=== PATIENT | male | born 1965 | race Caucasian/White ===

== ENCOUNTER → 2017-06-28 07:30 | Outpatient (CLI) | payer SELFPAY ==
[2017-06-28 09:43] LABS: Cholesterol 243 mg/dL (200); Glucose 95 mg/dL (74-106); High Density Lipoprotein 39 mg/dL; Triglycerides 157 mg/dL; Very Low Density Lipoprotein 31 mg/dL (5-40)
== END ==
PROVIDERS: Family Provider Family Medicine; PCP Family Medicine; Visit Provider Family Medicine
DX: Z02.89 Encounter for other administrative examinations (principal)
CPT/HCPCS: 36415; 80061; 82947

== ENCOUNTER → 2017-08-03 06:14 | Outpatient (CLI) | payer SELFPAY ==
[2017-08-03 08:16] LABS: Cholesterol 221 mg/dL (200); Glucose 80 mg/dL (74-106); High Density Lipoprotein 34 mg/dL; Triglycerides 135 mg/dL; Very Low Density Lipoprotein 27 mg/dL (5-40)
== END ==
PROVIDERS: Family Provider Family Medicine; PCP Family Medicine; Visit Provider Family Medicine
DX: Z02.89 Encounter for other administrative examinations (principal)
CPT/HCPCS: 36415; 80061; 82947

== ENCOUNTER 2017-12-15 13:20 | Emergency (ER) | payer BC, SELFPAY ==
[2017-12-15 13:21] VITALS: BP 143/90; PULSE 79; RESP 16; TEMP 36.6; O2SAT 99; BMI 35.2
--- NOTE | 2017-12-15 13:31 | ED.VISSUMM ---
- ER Visit Summary Date of Service: 12/15/17 Chief Complaint: Back pain History of Present Illness: The patient is a 52 M who presents with back pain. He states yesterday he felt a tightening up and while he was at breakfast he moved a certain way and it started to make the pain worse. The pain is in the upper lumbar and lower thoracic area in the left side. It radiates to the left buttock. Movement makes it worse. Remaining still makes it better. No numbness or tingling. It does not radiate down the leg. No bowel or bladder incontinence. He took Flexeril at home and that made his symptoms better. He states he has a history of this back pain and when he had it last in [place] he had a shot of Toradol and this made it feel much better. Patient denies urinary symptoms Physical Examination: Vital signs reviewed. HEENT exam unremarkable. Heart is regular rate and rhythm without murmurs. Lungs are clear to auscultation. Abdomen is soft and nontender. Back exam reveals no tenderness. Deviated tenderness. Extremities reveal no edema. Skin exam normal. Neurologic exam normal. Test Results: None performed Emergency Department Course and Treatment: Patient will be given a shot of Toradol here. I will send him home with naproxen. He will ice and continue his Flexeril with it. He will follow-up with his PCP Treatment Plan: [] Disposition: Discharge Impression: Back pain This note was generated with [employer] dictation software. It may contain incorrect words, spelling, and punctuation that were not noted in review of the chart prior to signing ED Disposition - Plan for ED Patient: Chief Complaint: Back Referrals: Lonnie Fong MD [Primary Care Provider] -
--- NOTE | 2017-12-15 13:32 | ED.DEP ---
ED Disposition - Plan for ED Patient: Disposition: Home or Assisted Living Chief Complaint: Back Instructions: ED Neck Back Pain General Prescriptions: Naproxen [Naprosyn] 500 mg PO BID PRN #20 tab Referrals: Lonnie Fong MD [Primary Care Provider] -
[2017-12-15] MEDS: Ketorolac 60 MG/2 ML Vial IM (13:38)
== END 2017-12-15 13:53 | disposition home or self-care (01) ==
PROVIDERS: Emergency Provider Emergency Medicine; Family Provider Family Medicine; PCP Family Medicine
DX: M54.9 Dorsalgia, unspecified (principal)
CPT/HCPCS: 96372; 99282

== ENCOUNTER 2018-01-22 08:30 | Outpatient (RCR) | payer BC, SELFPAY ==
--- NOTE | 2017-12-19 12:31 | HP.PTEVAL ---
Patient's Visit Information SATINDER ENRIQUEZ is a 52 year old M referred to Physical Therapy by Robbin Fong with a diagnosis of LUMBAGO WITH SCIATICA LEFT SIDE. Date of Evaluation: 12/19/17 Physical Therapist: Esdras Combs, PT, - Visit Plan Frequency: 2x /Week Duration: 4 Weeks Plan: start with hi ex's with progression of forces ,Manual therapy with moblization L1-5 AP /roational grade 3-4 to improve moblity ,intiate DLS ,LE flexablity and modalies as needed - Subjective Subjective: This 52 y/o male presents to physical therapy with lumago with sciatica left leg. This patient has h/o lumbar pain with radicular symptoms 12 years. Most recently ,did alot of yard work developed left lumbar pain next day ,unable to bend or move. Patient had to go to ER from did injection. Intially ,seen DR in [place] recommended PT. Location left side with intermiitant leg pain. Symptoms worse with bending,lifting,sitting at work ,yard work. Symptoms better with walking. Denies parathesia/tingling. Coughing/sneezing increase symtoms. Bowel/bladder good. Patient had prior PT. Patie able sleep okay. SOCAIL: . 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 GAIT: normal gunner reciprocal. NEURO: denies parathesia/tingling ,reflexes L3-4,L4-5,L5-S1. SYMMTRIES : align. MMT: quads/hams 4/5,4/5 hip flexion 4/5 ,ankle 5/5. LUMBAR ROM: flexion mod min/mod loss with poor reverse curve,extension min loss.side glides min loss,. FLEXABLITY: min/mod hams. ASSESSORY MOTION: lumbar L1-L5 mod tight - Special Tests L/S Slump test left side: Positive L/S Slump test right side: Negative L/S Left Straight Leg Raise: Negative L/S Right Straight Leg Raise: Positive Lumbar Standing: Flexion - Mechanical Response: No effect Lumbar Standing: Flexion - Symptoms During Testing: Increases Lumbar Standing: Flexion - Symptoms After Testing: No worse Lumbar Standing: Extension - Mechanical Response: No effect Lumbar Standing: Extension - Symptoms During Testing: Increases Lumbar Standing: Extension - Symptoms After Testing: No worse Lumbar Standing: Right Side Glides - Mechanical Response: No effect Lumbar Standing: Right Side [place] - Symptoms During Testing: No effect Lumbar Standing: Right Side [place] - Symptoms After Testing: No effect Lumbar Standing: Left Side [place] - Mechanical Response: No effect Lumbar Standing: Left Side [place] - Symptoms During Testing: Increases Lumbar Standing: Left Side [place] - Symptoms After Testing: Worse Lumbar Lying: Flexion - Mechanical Response: No effect Lumbar Lying: Flexion - Symptoms During Testing: Increases Lumbar Lying: Flexion - Symptoms After Testing: No worse Lumbar Lying: Extension - Mechanical Response: No effect Lumbar Lying: Extension - Symptoms During Testing: Decreases Lumbar Lying: Extension - Symptoms After Testing: Better - Goals Goal 1:: Independant with HEP Goal Time Frame: 4-6 Weeks Goal 2:: Independant with posture and bodymechanics Goal Time Frame: 4-6 Weeks Goal 3:: Decrease lumbar pain and radicular symptoms 75% or greater to improve function Goal Time Frame: 4-6 Weeks Goal 4:: Patient to improve lumbar ROM for function of recovery. Goal Time Frame: 4-6 Weeks Goal 5:: Patient to d/c to prophalaxis Goal Time Frame: 4-6 Weeks - Rehabilitation Potential Physical Therapy Diagnosis: Patient has intermmitant lumbar radiculopathy with impression of derrangemnt symptoms worse with flexion ,faulty posture,assory moblity tight lumbar,and decrease core strength thus benifit from skilled PT . Rehabilitation Potential: Good - Anticipated Interventions Patient/Client Instruction: Educate patient on: Condition, Plan of Care For the Purpose of:: To decrease pain, To increase ROM, To improve muscle performance and motor function, To increase tolerance to activity/condition/position, To improve ability of physical actions for home/community/work/leisure, To improve health of tissue, To decrease soft tissue restriction, To increase flexibility/ROM, To improve ability to perform tasks related to life management Therapeutic Exercise to Include: Strength training, Body mechanics, Postural training, Flexibilty training, Dynamic Lumbar Stabilization, Hi Exercises For the Purpose of:: To decrease pain, To increase ROM, To improve muscle performance and motor function, To increase tolerance to activity/condition/position, To improve ability of physical actions for home/community/work/leisure, To improve health of tissue, To decrease soft tissue restriction, To increase flexibility/ROM, To improve ability to perform tasks related to life management Manual Therapy Techniques to Include: Mobilization Comment: L1-L5 3-4 For the Purpose of:: To decrease pain, To increase ROM, To improve health of tissue, To decrease soft tissue restriction TENS: Yes IF ES: Yes Cryotherapy (ice pack, ice massage): Yes Thermo therapy (hot pack): Yes Ultrasound (thermal/non thermal): Yes For the Purpose of:: To decrease pain, To improve nutrient delivery to tissue, To increase oxygenation perfusion, To improve health of tissue, To decrease soft tissue restriction Thank you for the opportunity to evaluate your patient. For Medicare and Medicare HMO plans, please review the plan of care and approve it. It will need to be FAXED BACK to us at [phone] for Medicare purposes. Please let me know if there are questions or concerns regarding this plan of care. Physician Signature: Date:
--- NOTE | 2018-04-15 15:08 | HP.PTDCNRP_ITS ---
HP - Discharge Summary (1) - Patient Information SATINDER ENRIQUEZ was seen in my office for initial evaluation on 12/19/17. The following Plan of Care was established for this patient: Initial Frequency: 2x /Week Initial Duration: 4 Weeks - Anticipated Interventions Patient/Client Instruction: Educate patient on: Condition, Plan of Care For the Purpose of:: To decrease pain, To increase ROM, To improve muscle perfo rmance and motor function, To increase tolerance to activity/condition/position, To improve ability of physical actions for home/community/work/leisure, To improve health of tissue, To decrease soft tissue restriction, To increase flexibility/ROM, To improve ability to perform tasks related to life management Therapeutic Exercise to Include: Strength training, Body mechanics, Postural training, Flexibilty training, Dynamic Lumbar Stabilization, Denise Exercises For the Purpose of:: To decrease pain, To increase ROM, To improve muscle performance and motor function, To increase tolerance to activity/condition/position, To improve ability of physical actions for home/community/work/leisure, To improve health of tissue, To decrease soft tiss ue restriction, To increase flexibility/ROM, To improve ability to perform tasks related to life management Manual Therapy Techniques to Include: Mobilization Comment: L1-L5 3-4 For the Purpose of:: To decrease pain, To increase ROM, To improve health of tissue, To decrease soft tissue restriction TENS: Yes IF ES: Yes Cryotherapy (ice pack, ice massage): Yes Thermo therapy (hot pack): Yes Ultrasound (thermal/non thermal): Yes For the Purpose of:: To decrease pain, To improve nutrient delivery to tissue, To increase oxygenation perfusion, To improve health of tissue, To decrease soft tissue restriction This patient was last seen in our office 01/22/18. Pertinent comments regarding their Physical therapy will appear below: Patient seen for PT for low back pain focusing on DLS,POSTURAL EX'S ,MKENZIE EX'S. Patient progressing with decreasing lumbar pain for function of recovery,thus is d/c At this point I will be discontinuing this patient from physical therapy. I would be happy to see this patient again in the future if found appropriate by the physician. Thank you! Esdras Combs, PT,
== END 2018-01-22 19:00 | disposition home or self-care (01) ==
LOC: PT 08:30
PROVIDERS: Family Provider Family Medicine; PCP Family Medicine; Visit Provider Family Medicine
DX: M54.42 Lumbago with sciatica, left side (principal)
CPT/HCPCS: 97035; 97110; 97162

== ENCOUNTER → 2018-08-21 15:23 | Outpatient (CLI) | payer BC, SELFPAY ==
--- NOTE | 2018-08-21 15:31 | RAD_ITS ---
STUDY: X-RAY - LUMBAR SPINE REASON FOR EXAM: Male, 53 years old. Back pain. TECHNIQUE: 5 view(s) of the lumbar spine were obtained. COMPARISON: None FINDINGS: Normal lumbar lordosis. There is no substantial scoliosis. There is a normal alignment of the vertebrae. Normal vertebral bodies and endplates. There is diffuse intervertebral disc space narrowing with osteophyte formation. There is diffuse facet sclerosis. The soft tissue structures are unremarkable. RAD/L/S Spine Min 4 Views IMPRESSION: Mild diffuse lumbar spondylosis. Electronically Signed: Se Karimi MD at 17:39 EDT , Service support ,
== END ==
PROVIDERS: Family Provider Family Medicine; PCP Family Medicine; Referring Provider Anesthesiology; Visit Provider Anesthesiology
DX: M54.42 Lumbago with sciatica, left side (principal)
CPT/HCPCS: 72110

== ENCOUNTER → 2018-10-18 16:14 | Outpatient (CLI) | payer BC, SELFPAY ==
--- NOTE | 2018-10-18 16:45 | MRI_ITS ---
HISTORY: Low back pain, left-sided lumbar radiculopathy COMPARISON: Lumbar radiographs 08/21/2018 TECHNIQUE: Multisequence multiplanar MR imaging of the lumbar spine was performed per department protocol without IV gadolinium. # of images incl. paperwork: 121 FINDINGS: Lumbar alignment is within normal limits without significant scoliosis . No acute fracture or subluxation. Lumbar vertebral bodies are normal in height. Mild anterior marginal osteophytes throughout the lumbar spine. Mild discogenic endplate marrow changes at the L4-L5 level more pronounced along the left aspect No focal marrow signal abnormality to suggest a pathologic process. The conus is identified opposite the L1 level and is normal in morphology and signal characteristics. Mild disc space narrowing at L4-L5 and L5-S1 levels with moderate disc desiccation. T12-L1: No disc bulge or disc protrusion. No canal or neural foraminal stenosis. L1-2: No disc bulge or disc protrusion. No canal or neural foraminal stenosis. L2-3: No disc bulge or disc protrusion. No canal or neural foraminal stenosis. L3-4: Mild disc bulge. No superimposed disc protrusion. No canal or foraminal stenosis. Mild bilateral facet joint arthropathy. L4-5: There is a 2-3 mm asymmetric to the left disc protrusion extending into the left lateral aspect which combined with mild facet joint arthropathy results in moderate left foraminal stenosis. Mild flattening of the left aspect of the thecal sac without overall canal stenosis. No right foraminal stenosis. L5-S1: Left lateral 4 mm disc protrusion combined with moderate facet joint arthropathy and ligamentum flavum redundancy results in effacement and posterior displacement of the traversing left S1 nerve root. No canal or foraminal stenosis. Paravertebral soft tissues show no gross signal abnormalities. MRI/Spine Lumbar (Routine) IMPRESSION: 1. Effacement and posterior displacement of the traversing left S1 nerve root at the L5-S1 level. 2. Moderate left foraminal stenosis at L4-L5. 3. No canal stenosis of lumbar spine. 4. Lower lumbar spine degenerative changes as described. at 0335 Reported and signed by: Virgilio Son MD Electronically Signed: Virgilio Son MD at 3:34 EDT Tel , Service support ,
== END ==
PROVIDERS: Family Provider Family Medicine; PCP Family Medicine; Referring Provider Anesthesiology; Visit Provider Anesthesiology
DX: M54.16 Radiculopathy, lumbar region (principal)
CPT/HCPCS: 72148

== ENCOUNTER → 2018-10-25 12:27 | Outpatient (CLI) | payer BC, SELFPAY ==
[2018-10-22 14:58] VITALS: BMI 36.6
--- NOTE | 2018-10-25 12:30 | RAD_ITS ---
HISTORY: Back pain. AP, lateral, swimmer's lateral, bilateral obliques of the thoracic spine. Previous imaging is been of the lumbar spine. Findings: Kyphosis is mild. Mild wedging to several midthoracic vertebral bodies. Multilevel degenerative disc disease. Degenerative disc disease is manifested by loss of disc height, endplate sclerosis, and anterior enthesophytes. Within the lower lumbar spine, some of these enthesophytes are bridging. Facets are adequately aligned. No acute fractures are perceived. Paraspinous stripe is normal. Descending thoracic aortic margin is normal. RAD/Thoracic Spine Min 4 Views IMPRESSION: Multilevel degenerative disc disease with kyphosis. at 2416 Reported and signed by: John Lucio MD Electronically Signed: John Lucio MD at 4:43 EDT Tel , Service support ,
== END ==
PROVIDERS: Family Provider Family Medicine; PCP Family Medicine; Referring Provider Anesthesiology; Visit Provider Anesthesiology
DX: M54.6 Pain in thoracic spine (principal)
CPT/HCPCS: 72074

== ENCOUNTER → 2020-04-13 09:54 | Outpatient (CLI) | payer BC, SELFPAY ==
[2018-10-22 14:58] VITALS: BMI 36.6
[2020-04-13 13:01] LABS: Anion Gap 7 (5-15); BUN 8 mg/dL (7-18); BUN/Creat Ratio 13.2 RATIO (10-20); Calcium,Total 9.4 mg/dL (8.5-10.1); Chloride 105 mmol/L (98-107); EST Glomerular Filtration Rate 148 mL/min (>60); Est Glom Filt Rate - Afr Amer 179 mL/min (>60); Glucose 63 mg/dL (74-106); PSA,Total - Annual Screen 1.88 ng/mL (0.00-4.00); Potassium 3.6 mmol/L (3.5-5.1); Sodium Level 140 mmol/L (136-145)
== END ==
PROVIDERS: PCP Family Medicine; Visit Provider Family Medicine
DX: Z13.1 Encounter for screening for diabetes mellitus (principal); Z12.5 Encounter for screening for malignant neoplasm of prostate
CPT/HCPCS: 36415; 80048; 84153; G0103

== ENCOUNTER 2020-07-30 16:48 | Outpatient (RCR) | payer BC, SELFPAY ==
[2018-10-22 14:58] VITALS: BMI 36.6
[2020-07-30] MEDS: COVID-19 VACC, MRNA(PFIZER)/PF 30 MCG/0.3 ML SYRINGE IM (11:30)
[2020-08-20] MEDS: COVID-19 VACC, MRNA(PFIZER)/PF 30 MCG/0.3 ML SYRINGE IM (11:29)
== END 2020-07-30 23:59 ==
LOC: IMMUN 16:48
PROVIDERS: PCP Family Medicine; Referring Provider Family Medicine; Visit Provider Family Medicine
DX: Z23 Encounter for immunization (principal)
CPT/HCPCS: 0001A; 0002A; 91300

== ENCOUNTER 2021-02-01 17:00 | Outpatient (RCR) | payer BC, SELFPAY ==
[2020-10-04 08:59] VITALS: BMI 33.9
--- NOTE | 2020-12-21 16:58 | HP.PTEVAL ---
Patient's Visit Information SATINDER ENRIQUEZ is a 55 year old M referred to Physical Therapy by Dr. Jagdish Orourke DO with a diagnosis of L Achilles tendoonitis, L lat epicondylitis, L/S radic. Date of Evaluation: 12/21/20 Physical Therapist: Chandan Molina, DPT, OCS, CSCS - Visit Plan Frequency: 2x /Week Duration: 4-6 Weeks Plan: 2x/week for 3-6 weeks for. 1. US nonthermal to L achilles and PROM DF with gastroc graston tool and strettch gastroc adn soleus. 2. graston to L wrist extensor, stretch same. 3. eccentric wrist ext L and gastroc soleus L. 4. Please teach core strength and LB ROM to progress to HEP. - Subjective Daughter moved back in September and got L tennis elbow from doing that and stressed L elbow. Got antiinflammatory which did not work, then got injections and sent for PT. Shots helped 40%. He also has bad back whcih he stretches daily and that is hard to do with his elbow as are PPU. Morgan sback bends instead becasue they hurt. L heel starte dhurting and saw foot doctor and sent for PT. Doing stretches L leg but it hurts. Elbow hurts at 29-/10 if grabs object improperly. Employe din [employer] 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 Sleep is OK. Hobbies include fishing and his kids. Enjoys going to [place] but walking on beach kills him. Has chronic tendonitis in L achilles. Pain is 0-7 and worse with stretching.Hurts if walks too far. Avoids mowing the lawn. No falls and balance feels OK. Used to walk a mile with dogs 4-5x/week. - Objective Walks I with slight antalgia on L with Df. Trasnfers I. Avoids heel strike L. Tender to PROM DF. -8 on L and full inv/ev/df. Not tender to the touch in achilles tendon and only slightly on achilles. Gastroc Max tight, soleus max tight. Able to heel raise without pain L and R. Posture is forward head and kyphotic t/s, very stiff LB with ext limited mod to max and flexion mod limited, neither painful today but stiff. SB mod limtied B. LE AROM WFL except L ankle, reflexes 2/3 patella adn achilles. Sensation wNL to gross lght touch. - slump and SLR. UE AROM WNL, L elbow tender over lat epicondyul et origin only , + tennis elbow test L. Much better since injection according to patient. strength L elbow ext adn flexion 4 withotu pain, wrist flex adn ext 4/5 without pain today B. - Goals Goal 1:: L elbow feel 90% better adn able to pressup to manage LBP Goal Time Frame: 4-6 Weeks Goal 2:: Walk without antalgia in L achilles Goal Time Frame: 4-6 Weeks Goal 3:: Pt feel 90% better overall and I management condition with ex adn stretches LB, core strength, achilles ecc adn stretch adn L elbow ecc and stretch. Goal Time Frame: 4-6 Weeks - Rehabilitation Potential Physical Therapy Diagnosis: L heel pain and elbow pain limiting management of LBP Rehabilitation Potential: Fair - Anticipated Interventions Patient/Client Instruction: Educate patient on: Condition For the Purpose of:: To decrease pain, To improve muscle performance and motor function, To increase tolerance to activity/condition/position, To improve ability of physical actions for home/community/work/leisure Therapeutic Exercise to Include: Strength training, Flexibilty training, Gait and locomotor training, Passive ROM, Active ROM For the Purpose of:: To decrease pain, To increase ROM, To improve muscle performance and motor function, To increase tolerance to activity/condition/position, To improve ability of physical actions for home/community/work/leisure, To improve gait and locomotor functions Manual Therapy Techniques to Include: Mobilization, Soft tissue mobilization For the Purpose of:: To decrease pain, To improve nutrient delivery to tissue, To improve muscle performance and motor function Thermo therapy (hot pack): Yes Ultrasound (thermal/non thermal): Yes For the Purpose of:: To decrease pain, To decrease swelling/inflammation Thank you for the opportunity to evaluate your patient. For Medicare and Medicare HMO plans, please review the plan of care and approve it. It will need to be FAXED BACK to us at [phone] for Medicare purposes. For Medicare only, by signing this I certify the plan of care. Please let me know if there are questions or concerns regarding this plan of care. Physician Signature: Date:
--- NOTE | 2021-02-01 17:21 | HP.PTDCSUM ---
It has been my pleasure to treat SATINDER ENRIQUEZ referred by Dr. Jagdish Orourke DO, with the diagnosis of L Achilles tendoonitis, L lat epicondylitis, L/S radic for a total of 8 visit(s). Discharge Date: 02/01/21 Please see the following information for a summary of their discharge status. Subjective: Heerl is a lot better. Hurts for a second if I pull it up but able to walk without a problem. Elbow was good for a while but yard work can keep it going up and down. Back is getting a little better. Stretching really helps. doing some of the strengthening but not as often as I should. Overall thinks things will be get better with time and exercises that he has. elbow 70% better, back 50% better, achilles 90% better. L achilles Pain Intensity (Out of 10): 2 Objective/Function: LB still very stiff in flexion and rotation, extension improving. No pain with movements today but very stiff. Tender with L wrist extension moderately still but not painful at rest and if careful with acitvity. Achilles ROM and flexibility is good and no pain or antalgia. Goal 1:: L elbow feel 90% better adn able to pressup to manage LBP Goal Progress: 75% Goal 2:: Walk without antalgia in L achilles Goal Progress: Goal Met Goal 3:: Pt feel 90% better overall and I management condition with ex adn stretches LB, core strength, achilles ecc adn stretch adn L elbow ecc and stretch. Goal Progress: Goal Met Plan: d/c to HEP. Discharge Comments: Pt to contact doctor if symptoms worsen again If there are questions or concerns regarding this patient's physical therapy, please feel free to call me at [phone]. Thank you for the referral of this patient. Sincerely, Chandan Molina, DPT, OCS, CSCS Balance/Gait/Functional tests - Balance/Special Test Scores Lower Extremity Functional Score: 63
== END 2021-02-01 19:00 | disposition home or self-care (01) ==
LOC: PT 17:00
PROVIDERS: PCP Family Medicine; Referring Provider Orthopaedic Surgery; Visit Provider Orthopaedic Surgery
DX: M77.12 Lateral epicondylitis, left elbow (principal); M48.08 Spinal stenosis, sacral and sacrococcygeal region; M54.16 Radiculopathy, lumbar region; M76.62 Achilles tendinitis, left leg
CPT/HCPCS: 97035; 97110; 97140; 97162; 97164

== ENCOUNTER → 2021-04-15 15:39 | Outpatient (CLI) | payer BC, SELFPAY ==
--- NOTE | 2021-04-15 15:39 | MRI_ITS ---
STUDY: MRI LUMBAR SPINE WITHOUT CONTRAST REASON FOR EXAM: Male, 56 years old. pain L leg worse than R TECHNIQUE: Standardized fat and water weighted pulse sequences were obtained in the sagittal and axial planes. COMPARISON: X-ray 04/01/2021. FINDINGS: No demonstrated fracture. Vertebral bodies are normal in height. T12-L1: Normal disc height and morphology. Normal bilateral facet joints. Normal central canal. Normal bilateral lateral recesses. Normal intervertebral neural foramina. L1-2: L1 Schmorl''s node, otherwise normal disc morphology. Normal bilateral facet joints. Normal central canal. Normal bilateral lateral recesses. Normal intervertebral neural foramina. L2-3: Schmorl''s nodes. Normal bilateral facet joints. Normal central canal. Normal bilateral lateral recesses. Normal intervertebral neural foramina. L3-4: Normal disc height and morphology. Small, noncompressive left paracentral protrusion is predominantly spondylotic. Normal bilateral facet joints. Normal central canal. Normal bilateral lateral recesses. Normal intervertebral neural foramina. L4-5: Disc dehydration and mild disc space narrowing. Left paracentral spondylotic bar causes effacement of the left lateral recess and extends into the left neural foramen. Normal bilateral facet joints. Normal central canal. Severe left foraminal stenosis due to spurring. L5-S1: Disc dehydration. Left paracentral mixed spondylotic and disc protrusion effaces the left lateral recess and displaces the traversing left S1 nerve root. Normal bilateral facet joints. Normal central canal. Mild left foraminal encroachment due to spurring. Normal visualized sacral ala. Normal visualized paraspinous soft tissue structures. MRI/Spine Lumbar (Routine) IMPRESSION: 1. L5-S1 mixed spondylotic and disc protrusion displaces the left S1 nerve root. 2. Effacement of the left lateral recess at L4-5 and L5-S1 due to spondylosis. 3. Severe foraminal stenosis at L4-5. Electronically Signed: Analilia Rich MD at 22:07 EST Tel , Service support ,
== END ==
PROVIDERS: PCP Family Medicine; Referring Provider Orthopaedic Surgery; Visit Provider Orthopaedic Surgery
DX: M51.26 Other intervertebral disc displacement, lumbar region (principal)
CPT/HCPCS: 72148

== ENCOUNTER → 2021-04-28 08:39 | Outpatient (CLI) | payer BC, SELFPAY ==
[2021-04-28 10:12] LABS: Anion Gap 9 (5-15); BUN 8 mg/dL (7-18); BUN/Creat Ratio 12.3 RATIO (10-20); Chloride 103 mmol/L (98-107); Cholesterol 193 mg/dL (200); Creatinine, Serum 0.65 mg/dL (0.70-1.30); EST Glomerular Filtration Rate 135 mL/min (>60); Est Glom Filt Rate - Afr Amer 163 mL/min (>60); Glucose 87 mg/dL (74-106); High Density Lipoprotein 40 mg/dL; PSA,Total - Annual Screen 1.69 ng/mL (0.00-4.00); Sodium Level 139 mmol/L (136-145); Triglycerides 149 mg/dL; Very Low Density Lipoprotein 30 mg/dL (5-40)
== END ==
PROVIDERS: PCP Family Medicine; Referring Provider Family Medicine; Visit Provider Family Medicine
DX: E78.5 Hyperlipidemia, unspecified (principal)
CPT/HCPCS: 36415; 80048; 80061; 84153; G0103

== ENCOUNTER 2022-05-04 09:02 | Outpatient (CLI) | payer BC, SELFPAY ==
[2022-05-04 10:48] LABS: ALB/GLOB Ratio 1.1 RATIO (0.9-2.4); AST(SGOT) 22 U/L (15-37); Alanine Aminotransfer ALT/SGPT 30 U/L (16-61); Albumin, Serum 3.6 g/dL (3.2-5.0); Alkaline Phosphatase 72 U/L (45-117); Anion Gap 3 (5-15); BUN 7 mg/dL (7-18); BUN/Creat Ratio 10.4 RATIO (10-20); Calcium,Total 8.8 mg/dL (8.5-10.1); Chloride 104 mmol/L (98-107); Cholesterol 192 mg/dL (200); Creatinine, Serum 0.68 mg/dL (0.70-1.30); EST Glomerular Filtration Rate 129 mL/min (>60); Est Glom Filt Rate - Afr Amer 156 mL/min (>60); Globulin 3.3 g/dL (2.2-4.2); Glucose 93 mg/dL (74-106); High Density Lipoprotein 38 mg/dL; PSA,Total - Annual Screen 2.18 ng/mL (0.00-4.00); Protein, Total 6.9 g/dL (6.4-8.2); Sodium Level 138 mmol/L (136-145); Triglycerides 134 mg/dL; Very Low Density Lipoprotein 27 mg/dL (5-40)
== END 2022-05-04 23:59 | disposition home or self-care (01) ==
LOC: MFPLAB 09:03
PROVIDERS: PCP Family Medicine; Referring Provider Family Medicine; Visit Provider Family Medicine
DX: E78.5 Hyperlipidemia, unspecified (principal); Z12.5 Encounter for screening for malignant neoplasm of prostate; Z13.1 Encounter for screening for diabetes mellitus
CPT/HCPCS: 36415; 80053; 80061; 84153; G0103

== ENCOUNTER 2022-09-19 07:30 | Day surgery (SDC) | payer BC, SELFPAY ==
[2022-09-19] MEDS: Lactated Ringers 1,000 ML 15 ML IV (07:58)
[2022-09-19 07:59] VITALS: BP 115/70; PULSE 74; RESP 16; TEMP 36.2; O2SAT 100; BMI 33.5
--- NOTE | 2022-09-19 08:16 | H&P.OPEN ---
HPI - General HPI Narrative SATINDER ENRIQUEZ, is a 57 M who presents for surveillance colonoscopy. His last colonoscopy was about 6 years ago and they did find polyps. He denies any abdominal pain or blood in the stool or family history of colon cancer. [facility] Medical History (Updated 09/19/22 @ 08:[address] Kj Castro MD) Cardiology follow-up encounter Dietary restriction High cholesterol History of Clostridium difficile infection History of stress test Hyperlipidemia Non-smoker Obesity Paroxysmal supraventricular tachycardia SVT (supraventricular tachycardia) Wears glasses Wide-complex tachycardia Home Medications multivitamin 1 tab PO DAILY 04/01/21 [History Last Taken Unknown] ascorbate calcium (vitamin C) 500 mg tablet 500 mg PO DAILY 08/14/22 [History Last Taken Unknown] Allergy/AdvReac Type Severity Reaction Status Date / Time kiwi Allergy Food Verified 09/19/22 07:46 Allergy melon Allergy NEEDS Verified 09/19/22 07:46 FOLLOW-UP penicillin G benzathine Allergy Rash Verified 09/19/22 07:46 Penicillins Allergy Rash Verified 09/19/22 07:46 Family History (Updated 08/14/22 @ 13:06 by Marium Farrell) Mother CAD (coronary artery disease) S/P AVR (aortic valve replacement) Hx of CABG Breast cancer Brother Colon polyps Father Prostate cancer ALS (amyotrophic lateral sclerosis) Surgical History (Updated 09/14/22 @ 12:28 by Huma Cornejo) H/O arthroscopic knee surgery History of cardiac catheterization History of cardioversion (04/17/16) History of colonoscopy History of left heart catheterization (04/18/16) History of radiofrequency ablation procedure for cardiac arrhythmia (04/19/16) History of tonsillectomy Status post repair of hydrocele Social History Smoking Status: Never smoker alcohol intake: current substance use type: does not use caffeine: No what type of physical activity do you participate in: walking frequency: 3-4 times per week duration: 30-45 minutes/day seatbelt use: always do you feel safe at home: Yes Past Medical/Surgical History Planned Operation Planned Operative Procedure/s: COLONOSCOPY Previous Hospitalizations/Surgeries HX Hospitalizations: No Any Problems With Anesthesia: No You/Your Family Experience Fever (Hyperthermia) With Anes: No Cholinesterase deficiency: No Cardiovascular Hx Chest Pain within Last 2 months: No Hx of Irregular Heartbeat and/or Afib: Yes (SVT) Hx Heart Attack: No Hx Hypertension: No Hx Cardiac Surgery/Stents/Etc.: No Hx Pain in Legs when Walking/Leg Cramps: No Respiratory Hx Chronic Obstructive Pulmonary Disease (COPD): No Hx Emphysema: No Hx Sleep Apnea: No Hx Respiratory Tract Infection/Cold (presently): No Do You Snore Loudly (louder than talking or can be heard): No Do You Often Feel Tired/ Fatigued/ Sleepy Dring Daytime?: No Has Anyone Observed You Stop Breathing During Sleep?: No Result (for STOP score): Negative Hx Smoking: No Smoking Status: Never smoker Gastrointestinal Hx Gastrointestinal Bleed: No Hx Ulcer: No Hx Unplanned Weight Loss of 20#: No Neurological Hx Seizures: No Hx Multiple Sclerosis: No Hx Parkinson's Disease: No Does patient have nerve stimulator: No Blood Disorder Hx High Cholesterol: Yes Hx Hepatitis: No Hx Cirrhosis: No Hx Anemia: No Hx Blood Disorders: No Genitourinary Hx Renal Disease: No Hx Dialysis: No Musculoskeletal Hx Arthritis: Yes (BACK AND KNEES) Hx Rheumatoid Arthritis: No Endocrine Hx Diabetes: No Thyroid Disease: No Psycho/Social Hx Substance Use: No Hx Alcohol Use: Yes (BEER ON WEEKENDS- 6-8/DAY) Hx Anxiety: No Hx Depression: No Hx Dementia: No Miscellaneous Hx Cancer: No Recent Exposure to Contagious Disease: No Allergies kiwi Allergy (Verified 09/19/22 07:46) Food Allergy melon Allergy (Verified 09/19/22 07:46) NEEDS FOLLOW-UP honey dew melon penicillin G benzathine Allergy (Verified 09/19/22 07:46) Rash Penicillins Allergy (Verified 09/19/22 07:46) Rash Discharge Is Pt Admitted From a [facility], or a Long-Term: No Who Could Help: After D/C, Where Do you Plan to Go: Return Home Vital Signs Vital Signs Vital Signs: 09/19/22 07:59 09/19/22 07:59 Temperature 97.2 F L Temperature Source Temporal Pulse Rate 74 Respiratory Rate 16 Respiratory Pattern Normal Blood Pressure 115/70 Blood Pressure Mean 85 Blood Pressure Source Monitor Blood Pressure Position Semi-Fowlers Blood Pressure Location Left Arm Pulse Ox 100 Oxygen Delivery Method Room Air Weight Weight: 246 lb 14.684 oz Body Mass Index (BMI) 33.5 Physical Exam Const alert and oriented x3 HEENT normocephalic Eyes PERRL Resp normal respiratory effort and normal air movement Cardio regular rate and regular rhythm GI soft to palpation, non-tender and non-distended Extremity normal to inspection Assessment & Plan Assessment/Plan (1) History of colon polyps: PLAN: I explained endoscopy in detail to the patient. I explained the risks including but not limited to stroke or heart attack with anesthesia, perforation of the GI tract, bleeding, infection. I explained that any of these could necessitate further emergency surgery. The patient understands and all questions were answered sufficiently. The patient wishes to proceed with procedure. Kj Castro MD Pager: [facility] [address] [place] [address] [address] [place] [address] Office: Surgery Risks - Colonoscopy Risks Include but are not Limited To: Risks include but are not limited to: Bleeding, perforation requiring further surgery, inability to complete colonoscopy requiring barium enema.
[2022-09-19 08:45] VITALS: BP 107/58; BP 115/70; PULSE 78; RESP 16; TEMP 36.3; O2SAT 95
--- NOTE | 2022-09-19 08:46 | OP.COLON_ITS ---
Patient Name: Garrett Maddox Procedure Date: 09/19/2022 8:22 AM Date of : 1965 Age: 57 Procedure: Colonoscopy Indications: High risk colon cancer surveillance: Personal history of colonic polyps Providers: Kj Castro MD Medicines: Monitored Anesthesia Care Patient Profile: This is a 57 year old male. Refer to note in patient chart for documentation of history and physical. Last Colonoscopy: 5 years ago. Complications: No immediate complications. Procedure: Pre-Anesthesia Assessment: - Prior to the procedure, a History and Physical was performed, and patient medications and allergies were reviewed. The patient's tolerance of previous anesthesia was also reviewed. The risks and benefits of the procedure and the sedation options and risks were discussed with the patient. All questions were answered, and informed consent was obtained. Prior Anticoagulants: The patient has taken no previous anticoagulant or antiplatelet agents. ASA Grade Assessment: II - A patient with mild systemic disease. After reviewing the risks and benefits, the patient was deemed in satisfactory condition to undergo the procedure. After I obtained informed consent, the scope was passed under direct vision. Throughout the procedure, the patient's blood pressure, pulse, and oxygen saturations were monitored continuously. The pediatric colonoscope was introduced through the anus and advanced to the cecum, identified by appendiceal orifice and ileocecal valve. The colonoscopy was performed without difficulty. The patient tolerated the procedure well. The quality of the bowel preparation was good. Scope In: 8:31:51 AM Scope Withdrawal Time 0 hours 6 minutes 31 seconds Scope Out: 8:42:45 AM Total Procedure Duration Time 0 hours 10 minutes 54 seconds Findings: The entire examined colon appeared normal on direct and retroflexion views. Impression: - The entire examined colon is normal on direct and retroflexion views. - No specimens collected. Recommendation: - Discharge patient to home. - Resume previous diet. - Continue present medications. - Repeat colonoscopy in 10 years for screening purposes. Procedure Code(s): --- Professional --- 82568, Colonoscopy, flexible; diagnostic, including collection of specimen(s) by brushing or washing, when performed (separate procedure) Diagnosis Code(s): --- Professional --- Z86.010, Personal history of colonic polyps CPT copyright 2017 [employer]. All rights reserved. The codes documented in this report are preliminary and upon television repairman review may be revised to meet current compliance requirements. Kj Castro MD 09/19/2022 8:46:12 AM This report has been signed electronically. Number of Addenda: 0 Note Initiated On: 09/19/2022 8:22 AM
--- NOTE | 2022-09-19 08:47 | OP.CCLET_ITS ---
09/19/2022 Lonnie Fong [address] [place] [address] Re : Colonoscopy procedure for [facility] Dear Dr. Fong This procedure was performed on Monday, September 19, 2022. My impressions and recommendations are as follows: Impressions : - The entire examined colon is normal on direct and retroflexion views. - No specimens collected. Recommendations : - Discharge patient to home. - Resume previous diet. - Continue present medications. - Repeat colonoscopy in 10 years for screening purposes. My findings are described in the full procedure note, which is enclosed. If I can be of further assistance, please feel free to contact me at Doctor phone number(s): , Work: . Sincerely, Kj Castro MD 09/19/2022 8:46:12 AM This report has been signed electronically.
[2022-09-19 08:50] VITALS: BP 108/76; BP 115/70; PULSE 75; RESP 16; O2SAT 96
[2022-09-19 08:55] VITALS: BP 108/78; BP 115/70; PULSE 71; RESP 16; O2SAT 98
[2022-09-19 08:59] VITALS: BP 109/79; BP 115/70; PULSE 67; RESP 16; TEMP 36.6; O2SAT 98
[2022-09-19 09:22] VITALS: BP 115/70
== END 2022-09-19 09:38 | disposition home or self-care (01) ==
LOC: EN 07:30 → AC 07:33
PROVIDERS: PCP Family Medicine; Referring Provider Surgery; Visit Provider Surgery
PROC: 0DJD8ZZ Inspection of Lower Intestinal Tract, Via Natural or Artificial Opening Endoscopic (ICD-10-PCS; CPT 45378; principal; 2022-09-19 08:25)
DX: Z12.11 Encounter for screening for malignant neoplasm of colon (principal); Z86.010 Personal history of colon polyps; E78.00 Pure hypercholesterolemia, unspecified
CPT/HCPCS: 45378; J7120; J2405

== ENCOUNTER → 2023-05-03 | Outpatient (CLI) | payer BC, SELFPAY ==
[2023-05-03 10:44] LABS: Anion Gap 5 (5-15); BUN 8 mg/dL (7-18); BUN/Creat Ratio 12.1 RATIO (10-20); Calcium,Total 9.4 mg/dL (8.5-10.1); Chloride 104 mmol/L (98-107); Cholesterol 193 mg/dL (200); Creatinine, Serum 0.66 mg/dL (0.70-1.30); EST Glomerular Filtration Rate 132 mL/min (>60); Est Glom Filt Rate - Afr Amer 160 mL/min (>60); Glucose 87 mg/dL (74-106); High Density Lipoprotein 39 mg/dL; PSA,Total - Annual Screen 2.32 ng/mL (0.00-4.00); Sodium Level 139 mmol/L (136-145); Triglycerides 169 mg/dL; Very Low Density Lipoprotein 34 mg/dL (5-40)
== END | disposition home or self-care (01) ==
LOC: MFPLAB 08:21
PROVIDERS: PCP Family Medicine; Visit Provider Family Medicine
DX: Z13.1 Encounter for screening for diabetes mellitus (principal); Z12.5 Encounter for screening for malignant neoplasm of prostate; E78.5 Hyperlipidemia, unspecified
CPT/HCPCS: 36415; 80048; 80061; 84153; G0103

== ENCOUNTER → 2024-04-29 | Outpatient (CLI) | payer BC, SELFPAY ==
[2024-04-29 12:30] LABS: Absolute Lymphocyte Count 0.94 X10^3/uL (0.83-4.51); Absolute Neutrophil Count 3.9 X10^3/uL (2.0-7.7); Basophil# 0.04 X10^3/uL; Basophil% 0.7 % (0-1); Eosinophil# 0.16 X10^3/uL; Eosinophils% 2.9 % (0-5); Hemoglobin 15.6 g/dL (13.0-16.5); Lymphocyte # 0.94 X10^3/ul (0.83-4.51); Mean Corp Hgb Conc 33.9 g/dL (32-36); Mean Corpuscular Hgb 30.2 pg (27.0-32.0); Mean Platelet Vol. 10.6 fl (6.2-12.0); NRBC Flagged by Analyzer 0 % (0-5); Neutrophil # 3.87 X10^3/uL (2.7-7.7); Platelet Count 209 K/mm3 (150-450); RBC Distribution Width CV 13.1 % (11.6-14.6); RBC Distribution Width SD 42.8 fl (35.1-43.9); Red Blood Count 5.17 M/mm3 (4.6-6.2); White Blood Count 5.5 K/mm3 (4.4-11.0)
[2024-04-29 12:46] LABS: Anion Gap 4 (5-15); BUN 6 mg/dL (7-18); BUN/Creat Ratio 9.8 RATIO (10-20); Calcium,Total 9.3 mg/dL (8.5-10.1); Chloride 105 mmol/L (98-107); Creatinine, Serum 0.61 mg/dL (0.70-1.30); EST Glomerular Filtration Rate 143 mL/min (>60); Est Glom Filt Rate - Afr Amer 174 mL/min (>60); Glucose 86 mg/dL (74-106); Potassium 4.1 mmol/L (3.5-5.1); Rheumatoid Factor < 10.0 IU/mL (<15); Sodium Level 138 mmol/L (136-145)
[2024-04-30 12:08] LABS: ANTINUCLEAR ANTIBODIES DIRECT Negative (Negative)
[2024-04-30 14:08] LABS: PROEL- A/G Ratio 1.2 (0.7-1.7); PROEL- Albumin 3.8 g/dL (2.9-4.4); PROEL- Alpha-1 Globulin 0.3 g/dL (0.0-0.4); PROEL- Alpha-2 Globulin 0.8 g/dL (0.4-1.0); PROEL- Beta Globulin 1.1 g/dL (0.7-1.3); PROEL- Globulin, Total 3.1 g/dL (2.2-3.9); PROEL- TOTAL PROTEIN 6.9 g/dL (6.0-8.5); PROEL-M-Spike Not Observed g/dL (Not Observed)
== END | disposition home or self-care (01) ==
LOC: MTLAB 09:09
PROVIDERS: PCP Family Medicine; Referring Provider Family Medicine; Visit Provider Family Medicine
DX: M19.011 Primary osteoarthritis, right shoulder (principal); Z13.1 Encounter for screening for diabetes mellitus; Z12.5 Encounter for screening for malignant neoplasm of prostate
CPT/HCPCS: 36415; 80048; 84165; 85025; 86038; 86431

== ENCOUNTER 2024-05-01 17:30 | Outpatient (RCR) | payer BC, SELFPAY ==
--- NOTE | 2024-03-07 15:46 | HP.PTEVAL ---
Patient's Visit Information Visit Information Visit Information: SATINDER ENRIQUEZ is a 59 year old M referred to Physical Therapy by Dr. Jagdish Orourke DO with a diagnosis of RC tendonitis R.. Date of Evaluation: 03/07/24 Physical Therapist: Chandan Molina, DPT, OCS, CSCS Visit Plan Frequency: 2x /Week Duration: 4-6 Weeks Plan: 2x/week for 4-6 weeks... IE:Avoid aggravating activities, ice 20 minutes if sore. Upper arms at side for all repetitive activities. Posture is hugely important for healing Sleep left side with pillows under right arm or back, avoid direct right sidelying and tummy lying. Avoid repetitive overhead activities. treat with : Rc and scap strength and postural strength progressing to HEP as tolerated. Can use US nonthermal and TENS if painful at rest but should not need often.ice ROM shoulder and manual therapy grade 1-2 mobs Subjective Subjective: has bulging discs in back and needs to do PPU. Doing those hurt his R shoulder in January. has 30 years of shoulder problems but not treatment. Saw doctor Markus and irritated RC and gave injection steroid a couple weeks ago which helped. Used to hurt to play frisbee golf or throw a ball. Dressing was difficult at first. No problem anymore. Activities avoiding pressups for back. WB through it is problematic. Anti inflammatories. Activities: normal outside of PPU, avoids fly fishing No current exercises sleep is OK Pain R shoulder: Pain Intensity (Out of 10): 1 Pain Intensity Range: 0, 3 and 7 Objective Objective: FW head and prtracged scapular posture gently. Tender to palpation over r supraspinatus insertion. + HK, + neer, - sulcus, - ext rotation lag test.- apprehension., - Yergasons test. AROM R arm is good, slightly tight top of elevation B, mild pain arc. er adn IR are full but painful at end of both on R. elbow and wrist aROM WFL B. sensation WNL B UE to gross light touch. reflexes 1/3 bi and tri B. strength scap Good without pain, shoulder flexion adn abd 4/5 B with pain on R slightly. empty can +. bi and tri and wrist ext adn thumb ext strength 4+/5 without pain. R shoulder IR/4+ L 4+, er 4- R and pain and 4 L and no pain. Balance/Special Test Scores Quick DASH Score: 31.8175 Goals Goal 1:: Pain 90% improved and 1/10 at worst for a week Goal Time Frame: 4-6 Weeks Goal 2:: quickdash score 14 or better Goal Time Frame: 4-6 Weeks Goal 3:: I apporopriate HEP for RC scap strength to limit future problems Goal Time Frame: 4-6 Weeks Goal 4:: PPU x 20 without increasing pain Goal Time Frame: 4-6 Weeks Rehabilitation Potential Physical Therapy Diagnosis: weakness and pain R shouldeer limiting funciton Rehabilitation Potential: Fair Anticipated Interventions Patient/Client Instruction: Educate patient on: Condition and Plan of Care For the Purpose of:: To decrease pain, To increase ROM, To improve nutrient delivery to tissue and To improve muscle performance and motor function Therapeutic Exercise to Include: Strength training, Postural training, Passive ROM, Active ROM and Scapular Strength/Stabilization For the Purpose of:: To decrease pain, To increase ROM, To improve nutrient delivery to tissue, To improve muscle performance and motor function and To increase tolerance to activity/condition/position Manual Therapy Techniques to Include: Mobilization, Passive ROM and Soft tissue mobilization For the Purpose of:: To decrease pain, To decrease swelling/inflammation, To improve nutrient delivery to tissue, To improve muscle performance and motor function and To increase tolerance to activity/condition/position TENS: Yes Cryotherapy (ice pack, ice massage): Yes Ultrasound (thermal/non thermal): Yes (nonthermal) For the Purpose of:: To decrease pain, To decrease swelling/inflammation and To improve nutrient delivery to tissue Text: Thank you for the opportunity to evaluate your patient. For Medicare and Medicare HMO plans, please review the plan of care and approve it. It will need to be FAXED BACK to us at [phone] for Medicare purposes. For Medicare only, by signing this I certify the plan of care. Please let me know if there are questions or concerns regarding this plan of care. Physician Signature: Date:
--- NOTE | 2024-05-01 18:22 | HP.PTREVAL ---
Re-Evaluation Intro: Dr. Jagdish Orourke, DO, It has been my pleasure to treat SATINDER ENRIQUEZ over the last 11 visits for RC tendonitis R.. Please see the progress note below for an update on the physical therapy plan of care! Subjective Subjective: Getting a little better. It hurts less, stiffness persists but less pain. Pain 1-2/10 intermittently, painfree much of time. Using arm can still get painful. Doing prone exercises 2x10 at home. sidelying ext rotation , not pulling on band. wants to try adn continue at home exercises per HEP below and call if problems, f/u in a couple weeks. Objective Objective/Function: Full aROM B UE, no pain with movement, pain with resisted flexion adn ext rotation still showing some inflammation and instability at shoulder R but improved. Pt wishes to continue to ex from home vs continued PT and f/u Fear had been holding him back from PPU and TB ex. Goals still appropriate for next two weeks to recheck and fair prognosis with compliance. Plan Plan Plan: f/u two weeks to check tolerance to TB ex, prone and s/l shoulder ex and try to progress to WB through R UE to PPU. Balance/Gait/Functional tests Balance/Special Test Scores Quick DASH Score: 22.7250 Goals Goals Goal 1:: Pain 90% improved and 1/10 at worst for a week Goal Time Frame: 4-6 Weeks Goal Progress: 60-70% Goal 2:: quickdash score 14 or better Goal Time Frame: 4-6 Weeks Goal Progress: Progressing Goal 3:: I apporopriate HEP for RC scap strength to limit future problems Goal Time Frame: 4-6 Weeks Goal Progress: Goal Met Goal 4:: PPU x 20 without increasing pain Goal Time Frame: 4-6 Weeks Goal Progress: not tried Anticipated Interventions Anticipated Interventions Patient/Client Instruction: Educate patient on: Condition and Plan of Care For the Purpose of:: To decrease pain, To increase ROM, To improve nutrient delivery to tissue and To improve muscle performance and motor function Therapeutic Exercise to Include: Strength training, Postural training, Passive ROM, Active ROM and Scapular Strength/Stabilization For the Purpose of:: To decrease pain, To increase ROM, To improve nutrient delivery to tissue, To improve muscle performance and motor function and To increase tolerance to activity/condition/position Manual Therapy Techniques to Include: Mobilization, Passive ROM and Soft tissue mobilization For the Purpose of:: To decrease pain, To decrease swelling/inflammation, To improve nutrient delivery to tissue, To improve muscle performance and motor function and To increase tolerance to activity/condition/position TENS: Yes Cryotherapy (ice pack, ice massage): Yes Ultrasound (thermal/non thermal): Yes (nonthermal) For the Purpose of:: To decrease pain, To decrease swelling/inflammation and To improve nutrient delivery to tissue Re-Evaluation Ending Re-evaluation ending: Please do not hesitate to contact me at [phone] by phone or if you have questions or concerns regarding this new plan of care! Sincerely, Chandan Molina, DPT, OCS, CSCS
--- NOTE | 2024-06-30 13:30 | HP.PT.NRP ---
Patient Information Patient Information: SATINDER ENRIQUEZ was seen in my office for initial evaluation on 03/07/24. The following Plan of Care was established for this patient: POC Established Initial Frequency: 2x /Week Initial Duration: 4-6 Weeks Anticipated Interventions Patient/Client Instruction: Educate patient on: Condition and Plan of Care For the Purpose of:: To decrease pain, To increase ROM, To improve nutrient delivery to tissue and To improve muscle performance and motor function Therapeutic Exercise to Include: Strength training, Postural training, Passive ROM, Active ROM and Scapular Strength/Stabilization For the Purpose of:: To decrease pain, To increase ROM, To improve nutrient delivery to tissue, To improve muscle performance and motor function and To increase tolerance to activity/condition/position Manual Therapy Techniques to Include: Mobilization, Passive ROM and Soft tissue mobilization For the Purpose of:: To decrease pain, To decrease swelling/inflammation, To improve nutrient delivery to tissue, To improve muscle performance and motor function and To increase tolerance to activity/condition/position TENS: Yes Cryotherapy (ice pack, ice massage): Yes Ultrasound (thermal/non thermal): Yes (nonthermal) For the Purpose of:: To decrease pain, To decrease swelling/inflammation and To improve nutrient delivery to tissue Last Seen Last Seen: This patient was last seen in our office 05/01/24. Pertinent comments regarding their Physical therapy will appear below: Pt seen 11 visits of POC and was coming along slowly. He was to f/u two weeks later after doing HEP but did not return. At this point, it has been over 6 weeks and I will discontinue from my care At this point I will be discontinuing this patient from physical therapy. I would be happy to see this patient again in the future if found appropriate by the physician. Thank you! Chandan Molina, DPT, OCS, CSCS Balance/Gait/Functional tests Balance/Special Test Scores Quick DASH Score: 22.7284
== END 2024-05-01 19:00 | disposition home or self-care (01) ==
LOC: PT 17:30
PROVIDERS: PCP Family Medicine; Referring Provider Orthopaedic Surgery; Visit Provider Orthopaedic Surgery
DX: M75.81 Other shoulder lesions, right shoulder (principal)
CPT/HCPCS: 97110; 97140; 97161; 97530

== ENCOUNTER → 2025-05-13 | Outpatient (CLI) | payer BC, SELFPAY ==
--- OUTSIDE RECORDS SUMMARY | 2025-05-13 10:14 | XMS RPT_ITS | CCD ---
Author Organization [facility] Care Team Providers Care Voice Instructor Name Role Phone MD Urrutia Cyril S Unavailable Magdalena Fong MD Primary Care Provider Magdalena Fong MD Primary Care Provider Magdalena Fong MD Primary Care Provider Dr. Lonnie Fong Primary Care Provider Marium Farrell Attending Provider Unavailable Dr. Kj Castro Attending Provider Dr. Kj Castro Referring Provider Dr. Kj Castro Other Provider Magdalena Fong MD Primary Care Provider Magdalena Fong MD Primary Care Provider Magdalena Fong MD Primary Care Provider MAGDALENA FONG Primary Care UnavailDENISE Van Referring Unavailable JORGE RODAS Admitting Unavailable JORGE RODAS Attending Unavailable MAGDALENA FONG Primary Care UnavailDENISE Van Attending Unavailable MAGDALENA FONG Primary Care UnavailMAGDALENA Irwin Primary Care UnavailJORGE Daniels Attending Unavailable MAGDALENA FONG Primary Care UnavailDENISE Van Attending Unavailable MAGDALENA FONG Primary Care UnavailULISSES Torres Attending Unavailable Lex Urrutia Attending Unavailable Magdalena Fong Primary Care Unavailable Jagdish Orourke Attending Unavailable Magdalena Fong Primary Care Unavailable Ranney, Christopher Referring Unavailable [facility] Unavailable Lex Urrutia Attending Unavailable Davinso, Jagdish Attending Unavailable [facility] Unavailable Ranney, Christopher Referring Unavailable [facility] Unavailable Borruso, Jagdish Attending Unavailable Ranney, Christopher Referring Unavailable [facility] Unavailable Lex Urrutia Attending Unavailable [facility] Unavailable Henryruso, Jagdish Attending Unavailable Ranney, Christopher Referring Unavailable Ranney, Christopher Attending Unavailable Ranney, Christopher Referring Unavailable [facility] Unavailable Borruso, Jagdish Referring Unavailable [facility] Unavailable Borruso, Jagdish Attending Unavailable [facility] Unavailable Borruso, Jagdish Attending Unavailable Ranney, Christopher Referring Unavailable [facility] Unavailable Borruso, Jagdish Attending Unavailable Ranney, Christopher Referring Unavailable Borruso, Jagdish Attending Unavailable [facility] Referring Unavailable [facility] [place] Primary Care Unavailable Allergies Allergy Classification Reported Allergen(s) Allergy Type Date of Onset Reaction(s) Facility (2 sources) penicillin drug allergy 7 Itchy, vomiting, tunnel vision [facility] Work Phone: (20 sources) Penicillins; Translations: [PENICILLINS] Drug Allergy 2 Rash [facility] (3 sources) Melon Allergy to substance [address] [facility] (3 sources) Penicillins Allergy to substance [address] [facility] (4 sources) kiwi Allergy to substance [address] [facility] (3 sources) Penicillin G Benzathine; Translations: [penicillin G benzathine] Allergy to substance [address] [facility] (1 source) Melon Drug allergy (disorder) 4 [facility] (1 source) Penicillins Drug allergy (disorder) 4 [facility] (1 source) kiwi Drug allergy (disorder) 4 [facility] Medications Current Medications Medication Drug Class(es) Dates Sig (Normalized) Sig (Original) calcium ascorbate 500 mg oral tablet (2 sources) Start: 3 take 500 mg by mouth once daily Ascorbate Calcium (Vitamin C) Active 500 MG PO DAILY August 13, 2022 11:00pm methocarbamol 750 mg oral tablet (1 source) Muscle Relaxant Start: 3 End: 3 take 1 tablet by mouth three times daily as needed methocarbamol (ROBAXIN-750) 750 mg tablet Take 1 tablet by mouth three times daily as needed. 90 tablet 0 05/23/2022 06/22/2022 Active Comment on above: Take 1 tablet by ezio th three times daily as needed. methylPREDNISolone (1 source) Corticosteroid Start: 3 End: 3 methylPREDNISolone (MEDROL, MONICA,) 4 mg Dose-Pack As Instructed per package 21 tablet 0 05/23/2022 05/28/2022 Active Comment on above: As Instructed per pauline delarosa Multivitamin preparation (3 sources) Start: 1 take 1 tablet by mouth once daily Multivitamin Active 1 TABLET PO DAILY April 01, 2021 1:00am Start: 04-01-2021 take 1 tablet by ezio th once daily Multivitamin Active 1 TABLET PO DAILY April 01, 2021 12:00am multivitamin tablet (20 sources) take 1 tablet by ezio th once daily multivitamin tablet Take 1 tablet by mouth once daily. Active take 1 tablet by mouth once julissa y multivitamin tablet Take 1 tablet by mouth once daily. 0 Active Comment on above: Take 1 tablet by ezio th once daily. tiZANidine 4 mg oral tablet (5 sources) Central alpha-2 Adrenergic Agonist Start: 07-10-2023 End: 08-09-2023 take 1 tablet by mouth every eight hours as needed tiZANidine (ZANAFLEX) 4 mg tablet Take 1 tablet by mouth three times a day as needed. 90 tablet 0 07/10/2023 08/09/2023 Active Comment on above: Take 1 tablet by ezio th three times a day as needed. Completed/Discontinued Medications Medication Drug Class(es) Dates Sig (Normalized) Sig (Original) acetaminophen 325 mg oral tablet (2 sources) Start: 05-02-2016 TYLENOL 325 MG TABS as needed ACETAMINOPHEN [id number] Estephania Patel RN ascorbic acid 500 mg oral tablet (5 sources) Start: 04-17-2016 End: 10-04-2020 take 500 mg by mouth once daily Ascorbic Acid (Vitamin C) Discontinued 500 MG PO DAILY@0800 April 17, 2016 12:00am October 04, 2020 7:55am meloxicam 15 mg oral tablet (3 sources) Nonsteroidal Anti-inflammatory Drug Start: 10-04-2020 End: 12-15-2020 take 1 tablet by mouth once daily Meloxicam (Mobic) 15 mg tablet Discontinued 15 MG PO DAILY October 03, 2020 11:00pm December 15, 2020 2:31pm 24 hr metoprolol succinate 25 mg extended release oral tablet (13 sources) beta-Adrenergic Rei Start: 05-02-2017 End: 12-29-2020 take 1 tablet by mouth once daily Metoprolol Succinate (Toprol Xl) 25 mg tablet extended release 24 hr Discontinued 25 MG PO daily December 22, 2019 10:07am December 29, 2020 8:46am Start: 10-19-2016 take 1 tablet by ezio once daily TOPROL XL 25 MG [id number] One tablet by mouth daily METOPROLOL SUCCINATE [id number] Lex Urrutia MD End: 12-05-2021 take 25 mg by mouth once daily METOPROLOL SUCCINATE OR AL Take 25 mg by mouth once daily. 0 12/05/2021 Discontinued Comment on above: Take 25 mg by mouth once daily. naproxen 500 mg oral tablet (3 sources) Nonsteroidal Anti-inflammatory Drug Start: 12-16-19 End: 10-23-19 19 take 500 mg by mouth twice daily as needed Naproxen Discontinued 500 MG PO TWICE DAILY NEEDED December 14, 2017 11:00pm October 22, 2018 1:59pm predniSONE 10 mg oral tablet (3 sources) Start: 09-04-19 End: 10-23-19 19 take 10 mg by mouth once daily Prednisone Discontinued 10 MG PO DAILY September 02, 2018 11:00pm October 22, 2018 1:59pm sotalol hydrochloride 80 mg oral tablet (6 sources) Antiarrhythmic Start: 05-02-20 16 take 1 tablet by mouth twice daily SOTALOL HCL 120 MG TABS One tablet by mouth twice daily SOTALOL HCL [id number] Estephania Patel RN Start: 05-02-2016 End: 10-19-2016 take 1 tablet by mouth twice daily SOTALOL HCL (AF) 80 MG TABS One tablet by mouth twice daily SOTALOL HCL AF [id number] Lex Urrutia MD Problems Active Problems Problem Classification Problem Date Documented Date Episodic/Chronic Cardiac dysrhythmias (8 sources) Supraventricular tachycardia; Translations: [Paroxysmal supraventricular tachycardia] Onset: 05-02-2016 05-02-2016 Chronic Cardiac dysrhythmias (3 sources) Tachycardia; Translations: [Tachycardia, unspecified] 09-06-2018 Episodic Disorders of lipid metabolism (5 sources) Hyperlipidemia; Translations: [Hyperlipidemia, unspecified] Onset: 05-02-2016 05-02-2016 Chronic Osteoarthritis (4 sources) Primary gonarthrosis, bilateral; Translations: [Bilateral primary osteoarthritis of knee] Onset: 05-09-2024 06-23-2024 Chronic Other and unspecified benign neoplasm (2 sources) History of polyp of colon; Translations: [Personal history of colonic polyps] 09-19-2022 Episodic Other and unspecified benign neoplasm (1 source) Personal history of colonic polyps; Translations: [Personal history of colonic polyps] 09-19-2022 Episodic Other bone disease and musculoskeletal deformities (9 sources) Segmental and somatic dysfunction; Translations: [Segmental and somatic dysfunction of lumbar region] 09-10-2018 Episodic Other connective tissue disease (3 sources) Lateral epicondylitis of left humerus; Translations: [Lateral epicondylitis, left elbow] 12-15-2020 Episodic Other connective tissue disease (3 sources) Triceps tendinitis; Translations: [Other enthesopathies, not elsewhere classified] 12-15-2020 Episodic Other non-traumatic joint disorders (3 sources) Pain in elbow; Translations: [Pain in left elbow] 12-15-2020 Episodic Other non-traumatic joint disorders (1 source) Pain in left knee; Translations: [Pain in left knee] Onset: 05-09-2024 Episodic Other screening for suspected conditions (not mental disorders or infectious disease) (2 sources) Patient encounter status; Translations: [Encounter for screening for malignant neoplasm of colon] 08-14-2022 Episodic Spondylosis; intervertebral disc disorders; other back problems (20 sources) Degeneration of lumbar intervertebral disc; Translations: [Other intervertebral disc degeneration, lumbar region] Onset: 07-20-2021 Chronic Past or Other Problems Problem Classification Problem Date Documented Date Episodic/Chronic Other connective tissue disease (20 sources) Muscle pain; Translations: [Myalgia, unspecified site] Onset: 04-13-2023 Episodic Other connective tissue disease (1 source) Myalgia, unspecified site; Translations: [Muscle pain] Onset: 04-13-2023 Episodic Other connective tissue disease (1 source) Other shoulder lesions, right shoulder; Translations: [Other shoulder lesions, right shoulder] Onset: 03-03-2024 Episodic Other non-traumatic joint disorders (2 sources) Pain in right knee; Translations: [Pain in joint, lower leg] Onset: 03-14-2024 06-23-2024 Episodic Other non-traumatic joint disorders (1 source) Pain in right shoulder; Translations: [Pain in right shoulder] Onset: 02-04-2024 Episodic Residual codes; unclassified (3 sources) History of radiofrequency ablation operation for arrhythmia; Translations: [Other specified postprocedural states] Onset: 04-19-2016 09-06-2018 Episodic Spondylosis; intervertebral disc disorders; other back problems (20 sources) 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; Translations: [Intervertebral disc stenosis of neural canal of lumbar region] Onset: 07-20-2021 Episodic Results Test Name Value Interpretation Reference Range Facility [facility] 06-02-2024 CNOV Office Visit (SP ) GARRETT MADDOX ([id number]) 1965 M Date Time Provider Department 06/02/24 8:45 AM ULISSES AVITIA During your visit today, we recorded the following information about you: Ulisses Avitia MD 06/23/2024 12:40 PM Signed Ulisses Avitia MD Department of Orthopaedics Orthopaedics [address] [place] [address] Dept: [phone] Dept June 02, 2024 CHIEF COMPLAINT: New and Knee Pain of the Right Knee and New and Knee Pain of the Left Knee HPI Patient here for evaluation bilateral knee pain. Patient states he is having pain on the medial aspect and in his knee cap area. On his right knee yesterday he was having a cracking noise. He did have a knee arthroscopy on his right knee in 1986 for a meniscus tear and tore his ACL partially. In January he twisted his right knee while moving some seats in his car. At times he does have difficulty going up and down steps. States his right knee is stiff today. Patient hand carried copies of his x-rays done at [facility]. Taking Ibuprofen for the pain and helps take the edge off. Last fall he was on Etolodac for his shoulder and felt it did help his knee pain. ASSESSMENT: M17.0 Primary osteoarthritis of both knees (primary encounter diagnosis) M25.561, M25.562, G89.29 Chronic pain of both knees PLAN: We had a lengthy discussion about the nonoperative treatment for knee osteoarthritis. Strengthening, NSAIDs, bracing, injection treatments. FOLLOW UP INSTRUCTIONS: As needed OBJECTIVE: Mr. Garrett Maddox is a pleasant 59 year old in no apparent distress. Gen:There were no vitals taken for this visit. nl development, non obese, no deformities ENT: Normocephalic, normal hearing, moist mucosa CV: Pulses:DP/PT= 2+ and symmetric, capillary refill < 2 secs, no peripheral edema/varicosities Skin: no rash, bruising or lesions. Good turgor. Psych: cooperative and appropriate, alert and oriented x 3, good mood and affect. Musculoskeletal: Patient walks without antalgia, normal station. Mild clinical varus of both knees. Hip motion without pain. Knee with scant, bilateral effusion. Patella tracks normally. There is mild patellar crepitance, each. No pain along the medial or lateral facets. Range of motion 0-125 degrees. Positive medial, without lateral joint line pain on palpation. Ligamentous exam stable on varus and valgus stress testing at 0 and 30 degrees there is some medial joint space widening of each knee and valgus stress consistent with a little bit of ligamentous laxity on his varus alignment. Extremity is warm and well perfused. Sensation is grossly intact to light touch, subjectively. IMAGIN views of each knee, weightbearing show tricompartmental, moderate arthritis. Supporting Subjective Information Below: Past Medical History: History reviewed. No pertinent past medical history. Past Surgical History: PAST SURGICAL HISTORY Procedure Laterality Date ARTHRS KNE SURG W/MENISCECTOMY MED/LAT W/SHVG Right 1986 Right knee arthroscopic HYDROCELE RIGHT, FLUID Right 1996 Right testicle PAST SURGICAL HISTORY OF 1985 Jaw fracture TONSILLECTOMY AND ADENOIDECTOMY Family History: FAMILY HISTORY Problem Relation Age of Onset Breast Cancer Mother Prostate Cancer Father Social History: Social History Tobacco Use Smoking status: Never Smokeless tobacco: Never Vaping Use Vaping status: Never Used Substance Use Topics Alcohol use: Yes Comment: 12-15 beers per week Drug use: Never Medications: Current Outpatient Medications Medication Sig multivitamin tablet Take 1 tablet by mouth once daily. No current facility-administered medications for this visit. Allergies: Penicillins and Kiwi ROS: General (negative for fatigue, malaise, weight loss/gain) HEENT (negative for headache, earache, recent vision changes, sinus pain, sore throat) Respiratory (no recent shortness of breath, hemoptysis) CV (negative for chest tightness, palpitations) Musculoskeletal (see HPI) Psych (no depression, anxiety) REFERRING PHYSICIAN: Consultation requested by Dr. Fong for an opinion regarding knee pain. My final recommendations will be communicated back to the requesting physician by way of shared Medical record or letter to requesting physician via US mail. Magdalena Fong MD [address] [place] [address] Ulisses Avitia MD Allergies As of Date: 06/02/2024 Noted Allergy Reaction PENICILLINS 08/04/2021 2 - Rash KIWI 06/02/2024 10 - Anaphylaxis Date Reviewed: 06/02/2024 Reviewed by: Tosha Rodriguez MA - Fully Assessed Reason for Visit: New [418956] Knee Pain [132] New [[id number]] Knee Pain [132] Primary Visit Diagnosis:Primary osteoarthritis of both knees [M17.0] Other Visit Diagnosis:Chronic pain of both knees [M25.561, M25.562, G89.29] Prescri (more content not included)... Normal [facility] Knee 4 or More Views 05-09 Knee 4 or More Views [facility] [address] [place] [address] Knee 4 or More Views MR#: [id number] Acct: [id number] Name: GARRETT MADDOX Rep #: [id number] : 1965 M 59 From: Brock Juan MD PCP: Dr. Magdalena Fong MD Status: DEP AMB Study: Knee 4 or More Views Date of Exam: 05/09/24 Exam# [id number] Ordering Dr: Jagdish Orourke DO [id number] STUDY: X-RAY - LEFT KNEE REASON FOR EXAM: Male, 59 years old. left knee pain TECHNIQUE: 4 view(s) of the knee. COMPARISON: None. FINDINGS: Normal visualized distal femur. Normal visualized proximal tibia and fibula. Normal proximal tibiofibular articulation. There is mild degenerative arthrosis of the medial femorotibial compartment. There is mild degenerative arthrosis of the lateral femorotibial compartment. There is mild degenerative arthrosis of the patellofemoral articulation. The soft tissue structures are unremarkable. RAD/Knee 4 or More Views IMPRESSION: Degenerative arthrosis. Electronically Signed: Brock Juan MD at 16:22 EST , CC: Dr. Magdalena Fong MD; Dr. Jagdish Orourke DO Conduit Mechanic: Signed Normal [facility] Orthopedic Visit Reporton Orthopedic Visit Report [facility] [address] [place] [address] [address] [place] [address] OFFICE VISIT Date of Service: 05/09/24 MR#: [id number] Acct: [id number] Name: GARRETT MADDOX Rep #: [id number] : 1965 Provider: Dr. Jagdish garcia DO Age/Sex: 59/M Location: [facility] Status: Signed Intake Vital Signs 03/14/24 10:00 Height 6 ft Intake Visit Reasons: LEFT KNEE Chief Complaint: left knee Is patient in pain?: Yes (left knee) Pain scale (1-10): 3 Allergies kiwi Allergy (Verified 05/09/24 08:36) Food Allergy melon Allergy (Verified 05/09/24 08:36) NEEDS FOLLOW-UP penicillin G benzathine Allergy (Verified 05/09/24 08:36) Rash Penicillins Allergy (Verified 05/09/24 08:36) Rash Medications ???Medication ???Instructions ???Recorded ???Confirmed ???Type multivitamin 1 tab PO DAILY 04/01/21 05/09/24 History ascorbate calcium (vitamin C) 500 500 mg PO DAILY 08/14/22 05/09/24 History mg tablet PFSH Medical History History of exam under anesthesia with epidural steroid injection Wears glasses History of Clostridium difficile infection High cholesterol Dietary restriction Non-smoker History of stress test Cardiology follow-up encounter Paroxysmal supraventricular tachycardia Obesity SVT (supraventricular tachycardia) Wide-complex tachycardia Hyperlipidemia Surgical History History of cardiac catheterization History of colonoscopy H/O arthroscopic knee surgery History of radiofrequency ablation procedure for cardiac arrhythmia (04/19/16) History of cardioversion (04/17/16) History of left heart catheterization (04/18/16) Status post repair of hydrocele History of tonsillectomy Family History Mother CAD (coronary artery disease) S/P AVR (aortic valve replacement) Hx of CABG Breast cancer Brother Colon polyps Father Prostate cancer ALS (amyotrophic lateral sclerosis) Social History Smoking Status: Never smoker alcohol intake: current substance use type: does not use caffeine: No what type of physical activity do you participate in: walking frequency: 3-4 times per week duration: 30-45 minutes/day seatbelt use: always do you feel safe at home: Yes HPI LEFT KNEE Details: This documentation accurately reflects the service provided and the decisions made by me, Dr. Jagdish Orourke DO 05/09/24 0755. Part of today???s visit was documented by Rhona Farrell LPN, acting as scribe. GARRETT MADDOX is a 59 year old M here today for left knee pain. He reports a several year history of knee pain. He states the pain has been progressively getting worse. He reports pain on the anterior and medial knee. He reports hearing occasional clicking of the knee. He also notices swelling at times. The pain is worse at the end of the day. He denies numbness or tingling. He denies previous injury or surgery to the knee. 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 Ortho Exam General General: Yes no acute distress Neurologic: Yes alert and Yes oriented x3 Psychologic: Yes reasonable and appropriate Right Knee Patella Translation: 1 Left Knee Skin/Wound: No ecchymosis, No erythema and No swelling Homans Sign: No Knee ROM: Yes ROM-Extension -20 to 0 and Yes ROM-Flexion 0-140 Examination: Yes med jt line tenderness, No Lat jt line tenderness, No Crepitus, No Chuck's Test, No TTP Patellar tendon, No TTP Tibial tubercle, No TTP Pes Anserine and No Illiotibial band tenderness Stability: NML: Anterior Drawer, NML: Posterior Drawer, NML: Valgus 0, NML: Valgus 30, NML: Varus 0 and NML: Varus 30 Patella Translation: 1 Patella Grind: No KNEE: pain over anterior medial knee full EXT no joint effusion full FLEX mild medial joint line tenderness - lateral joint line tenderness - pes tenderness Office Procedures Ortho Injections Injections Yes Knee Left Is this a patient provided medication?: No Details: Obtained consent for injection. Under sterile conditions, injected the patients left knee with 1.5mL Bupivacaine, 1.5mL Lidocaine and 1.0mL Depomedrol. The patient tolerated the injection well without any noted complication. Patient should call our office if redness develops, pain worsens or if they have any concerns. Office Meds Depo-Medrol 40 mg/mL suspension for injection Performing Provider: Jagdish Orourke DO Performing Location: [facility] Administered by: Jagdish Orourke DO on 05/09/24 09:11 Dose Route Admin Location Dispensed Lot Number Expiration Date [place] Ozzie u[employer]uremon[employer] (more content not included)... Normal [facility] Re-Evaluation - PT (1)on Re-Evaluation - PT (1) [facility] [address] [place] [address] / REEVALUATION / MEDICARE RECERTIFICATION PHYSICAL THERAPY MR#: [id number] Acct: [id number] Name: GARRETT MADDOX Rep #: [id number] : 1965 59 From: Chandan Molina DPT, OCS, CSCS Referring Dr.: Dr. Jagdish Orourke DO Status:REG RCR Insurance: [employer] S[employer] PAY INSURANCE Re-Evaluation Intro: Dr. Jagdish Orourke DO, It has been my pleasure to treat GARRETT MADDOX over the last 11 visits for RC tendonitis R.. Please see the progress note below for an update on the physical therapy plan of care! Subjective Subjective: Getting a little better. It hurts less, stiffness persists but less pain. Pain 1-2/10 intermittently, painfree much of time. Using arm can still get painful. Doing prone exercises 2x10 at home. sidelying ext rotation , not pulling on band. wants to try adn continue at home exercises per HEP below and call if problems, f/u in a couple weeks. Objective Objective/Function: Full aROM B UE, no pain with movement, pain with resisted flexion adn ext rotation still showing some inflammation and instability at shoulder R but improved. Pt wishes to continue to ex from home vs continued PT and f/u Fear had been holding him back from PPU and TB ex. Goals still appropriate for next two weeks to recheck and fair prognosis with compliance. Plan Plan Plan: f/u two weeks to check tolerance to TB ex, prone and s/l shoulder ex and try to progress to WB through R UE to PPU. Balance/Gait/Function al tests Balance/Special Test Scores Quick DASH Score: 22.7250 Goals Goals Goal 1:: Pain 90% improved and 1/10 at worst for a week Goal Time Frame: 4-6 Weeks Goal Progress: 60-70% Goal 2:: quickdash score 14 or better Goal Time Frame: 4-6 Weeks Goal Progress: Progressing Goal 3:: I apporopriate HEP for RC scap strength to limit future problems Goal Time Frame: 4-6 Weeks Goal Progress: Goal Met Goal 4:: PPU x 20 without increasing pain Goal Time Frame: 4-6 Weeks Goal Progress: not tried Anticipated Interventions Anticipated Interventions Patient/Client Instruction: Educate patient on: Condition and Plan of Care For the Purpose of:: To decrease pain, To increase ROM, To improve nutrient delivery to tissue and To improve muscle performance and motor function Therapeutic Exercise to Include: Strength training, Postural training, Passive ROM, Active ROM and Scapular Strength/Stabilizatio n For the Purpose of:: To decrease pain, To increase ROM, To improve nutrient delivery to tissue, To improve muscle performance and motor function and To increase tolerance to activity/condition/po sition Manual Therapy Techniques to Include: Mobilization, Passive ROM and Soft tissue mobilization For the Purpose of:: To decrease pain, To decrease swelling/inflammation , To improve nutrient delivery to tissue, To improve muscle performance and motor function and To increase tolerance to activity/condition/po sition TENS: Yes Cryotherapy (ice pack, ice massage): Yes Ultrasound (thermal/non thermal): Yes (nonthermal) For the Purpose of:: To decrease pain, To decrease swelling/inflammation and To improve nutrient delivery to tissue Re-Evaluation Ending Re-evaluation ending: Please do not hesitate to contact me at [phone] by phone or if you have questions or concerns regarding this new plan of care! Sincerely, Chandan Molina, DPT, OCS, CSCS 05/01/24 1822 CC: Dr. Magdalena Fong MD; Dr. Jagdish Orourke, DO EBG Signed For Medicare only, by signing this I certify the plan of care. Physicians Signature Date Normal [facility] ANTINUCLEAR ANTIBODIES DIREC Ton 04-30-2024 JENNIFER,DIRECT Negative Normal Negative [facility] Comment on above: Order Comment: Order Date: 04/29/24Order Info: 0270-1 - JENNIFER Result Comment: Perf ormed at: [facility] [address] [id number] Bookkeeping Manager: Yaakov Antonio PhD, Phone: [phone] Performed By: #### L 3100.3450, L100.0100, L505.7010, L3100.5475 ####[facility] [address] [place], [address] Protein Electroph, Son 04-30 Albumin [Mass/Vol] 3.8 g/dL Normal 2.9-4.4 [facility] Comment on above: Order Comment: Order Date: 04/29/24Order Info: 0060-1 - PROEL Performed By: #### L 3100.3450, L100.0100, L505.7010, L3100.5475 ####[facility] [address] [place], [address] Albumin/Globulin [Mass ratio] 1.2 {ratio} Normal 0.7-1.7 [facility] Comment on above: Order Comment: Order Date: 04/29/24Order Info: 006-1 - PROEL Performed By: #### L 3100.3450, L100.0100, L505.7010, L3100.5475 ####[facility] [address] [place], [address] ALPHA-1 GLOBUL 0.3 g/dL Normal 0.0-0.4 [facility] Comment on above: Order Comment: Order Date: 04/29/24Order Info: 0060-1 - PROEL Performed By: #### L 3100.3450, L100.0100, L505.7010, L3100.5475 ####[facility] [address] [place], [address] ALPHA-2 GLOBUL 0.8 g/dL Normal 0.4-1.0 [facility] Comment on above: Order Comment: Order Date: 04/29/24Order Info: 0060-1 - PROEL Performed By: #### L 3100.3450, L100.0100, L505.7010, L3100.5475 ####[facility] [address] [place], [address] BETA GLOBULIN 1.1 g/dL Normal 0.7-1.3 [facility] Comment on above: Order Comment: Order Date: 04/29/24Order Info: 0060-1 - PROEL Performed By: #### L 3100.3450, L100.0100, L505.7010, L3100.5475 ####[facility] [address] [place], [address] GAMMA GLOBULIN 1.0 g/dL Normal 0.4-1.8 [facility] Comment on above: Order Comment: Order Date: 04/29/24Order Info: 0060-1 - PROEL Performed By: #### L 3100.3450, L100.0100, L505.7010, L3100.5475 ####[facility] [address] [place], [address] Globulin (S) [Mass/Vol] 3.1 g/dL Normal 2.2-3.9 [facility] Comment on above: Order Comment: Order Date: 04/29/24Order Info: 0060-1 - PROEL Performed By: #### L 3100.3450, L100.0100, L505.7010, L3100.5475 ####[facility] [address] [place], [address] INTERPRETATION Comment Normal . [facility] Comment on above: Order Comment: Order Date: 04/29/24Order Info: 0060-1 - PROEL Result Comment: Prot ein electrophoresis scan will follow via computer, mail, or shoe stock associate delivery. Performed By: #### L 3100.3450, L100.0100, L505.7010, L3100.5475 ####[facility] [address] [place], [address] M-SPIKE Not Observed Normal Not Observed [facility] Comment on above: Order Comment: Order Date: 04/29/24Order Info: 59-05 - PROEL Performed By: #### L 3100.3450, L100.0100, L505.7010, L3100.5475 ####[facility] [address] [place], [address] NOTE: Comment Normal . [facility] Comment on above: Order Comment: Order Date: 04/29/24Order Info: 59-05 - PROEL Result Comment: The SPE pattern appears unremarkable. Evidence of monoclonal protein is not apparent. Performed at: [address] [id number] Bookkeeping Manager: Yaakov Antonio PhD, Phone: [phone] Performed By: #### L 3100.3450, L100.0100, L505.7010, L3100.5475 ####[facility] [address] [place], [place], [id number] Protein [Mass/Vol] 6.9 g/dL Normal 6.0-8.5 [facility] Comment on above: Order Comment: Order Date: 04/29/24Order Info: 59-05 - PROEL Performed By: #### L 3100.3450, L100.0100, L505.7010, L3100.5475 ####[facility] [address] [place], [address] Basic Metabolic Profile (BMP )on 04-29-2024 BUN/CRE 9.8 RATIO Low 10-20 [facility] Comment on above: Order Comment: Order Date: 04/29/24Order Info: 0667-1 - BMPOrder Info: 31353-6 - RA Performed By: #### L 500.2500 ####[facility] [address] [place], [address] CA,Total 9.3 mg/dL Normal 8.5-10.1 [facility] Comment on above: Order Comment: Order Date: 04/29/24Order Info: 666- - BMPOrder Info: 69689-1 - RA Performed By: #### L 500.2500 ####[facility] [address] [place], [address] Chloride [Moles/Vol] 105 mmol/L Normal 98-107 [facility] Comment on above: Order Comment: Order Date: 04/29/24Order Info: 666-05 - BMPOrder Info: 73669-9 - RA Performed By: #### L 500.2500 ####[facility] [address] [place], [address] CO2 [Moles/Vol] 29.0 mmol/L Normal 21.0-32.0 [facility] Comment on above: Order Comment: Order Date: 04/29/24Order Info: 666-05 - BMPOrder Info: 75118-4 - RA Performed By: #### L 500.2500 ####[facility] [address] [place], [address] Creatinine [Mass/Vol] 0.61 mg/dL Low 0.70-1.30 [facility] Comment on above: Order Comment: Order Date: 04/29/24Order Info: 666-05 - BMPOrder Info: 61962-3 - RA Result Comment: The validity of the calculated GFR GFRAA in patients over 70 years has not been determined. Clinical correlation is essential. Performed By: #### L 500.2500 ####[facility] [address] [place], [address] EST GFR - AA 174 mL/min Normal >60 [facility] Comment on above: Order Comment: Order Date: 04/29/24Order Info: 666-05 - BMPOrder Info: 64522-8 - RA Result Comment: Afri can [place] GFR Calc Performed By: #### L 500.2500 ####[facility] [address] [place], [address] GAP 4 Low 5-15 [facility] Comment on above: Order Comment: Order Date: 04/29/24Order Info: 666-05 - BMPOrder Info: 72609-3 - RA Performed By: #### L 500.2500 ####[facility] [address] [place], [address] GFR/1.73 sq M.predicted among non-blacks MDRD (S/P/Bld) [Vol rate/Area] 143 mL/min/{1.73_m2} Normal >60 [facility] Comment on above: Order Comment: Order Date: 04/29/24Order Info: 666-05 - BMPOrder Info: 05337-6 - RA Result Comment: Non- GFR Calc Performed By: #### L 500.2500 ####[facility] [address] [place], [address] Glucose [Mass/Vol] 86 mg/dL Normal 74-106 [facility] Comment on above: Order Comment: Order Date: 04/29/24Order Info: 666-05 - BMPOrder Info: 36443-1 - RA Performed By: #### L 500.2500 ####[facility] [address] [place], [address] Potassium [Moles/Vol] 4.1 mmol/L Normal 3.5-5.1 [facility] Comment on above: Order Comment: Order Date: 04/29/24Order Info: 666-05 - BMPOrder Info: 31370-0 - RA Performed By: #### L 500.2500 ####[facility] [address] [place], [address] Sodium [Moles/Vol] 138 mmol/L Normal 136-145 [facility] Comment on above: Order Comment: Order Date: 04/29/24Order Info: 666-05 - BMPOrder Info: 94973-5 - RA Performed By: #### L 500.2500 ####[facility] [address] [place], [address] Urea nitrogen [Mass/Vol] 6 mg/dL Low 7-18 [facility] Comment on above: Order Comment: Order Date: 04/29/24Order Info: 0667-1 - BMPOrder Info: 26255-4 - RA Performed By: #### L 500.2500 ####[facility] [address] [place], [address] CBC W/Diff, Automatedon 04-13-2023 Absolute Lymph 0.94 X10 3/uL Normal 0.83-4.51 [facility] Comment on above: Order Comment: Order Date: 04/29/24Order Info: 0184- - CBCD Performed By: #### L 3100.3450, L100.0100, L505.7010, L3100.5475 ####[facility] [address] [place], [address] Absolute Neut 3.9 X10 3/uL Normal 2.0-7.7 [facility] Comment on above: Order Comment: Order Date: 04/29/24Order Info: 0184- - CBCD Performed By: #### L 3100.3450, L100.0100, L505.7010, L3100.5475 ####[facility] [address] [place], [address] Basophils/100 WBC (Bld) 0.7 % Normal 0-1 [facility] Comment on above: Order Comment: Order Date: 04/29/24Order Info: 0184-1 - CBCD Performed By: #### L 3100.3450, L100.0100, L505.7010, L3100.5475 ####[facility] [address] [place], [address] Eosinophils/100 WBC (Bld) 2.9 % Normal 0-5 [facility] Comment on above: Order Comment: Order Date: 04/29/24Order Info: 0184-1 - CBCD Performed By: #### L 3100.3450, L100.0100, L505.7010, L3100.5475 ####[facility] [address] [place], [address] Erythrocyte distribution width (RBC) [Ratio] 13.1 % Normal 11.6-14.6 [facility] Comment on above: Order Comment: Order Date: 04/29/24Order Info: 018- - CBCD Performed By: #### L 3100.3450, L100.0100, L505.7010, L3100.5475 ####[facility] [address] [place], [address] Hematocrit (Bld) [Volume fraction] 46.0 % Normal 40-54 [facility] Comment on above: Order Comment: Order Date: 04/29/24Order Info: 018- - CBCD Performed By: #### L 3100.3450, L100.0100, L505.7010, L3100.5475 ####[facility] [address] [place], [address] Hemoglobin (Bld) [Mass/Vol] 15.6 g/dL Normal 13.0-16.5 [facility] Comment on above: Order Comment: Order Date: 04/29/24Order Info: 0184- - CBCD Performed By: #### L 3100.3450, L100.0100, L505.7010, L3100.5475 ####[facility] [address] [place], [address] IG% 0.400 Normal 0.0-0.9 [facility] Comment on above: Order Comment: Order Date: 04/29/24Order Info: 0184- - CBCD Result Comment: IG% - Immature Granulocytes (promyelocytes, myelocytes and metamyelocytes) > 1% indicates that a LEFT SHIFT is Present. Performed By: #### L 3100.3450, L100.0100, L505.7010, L3100.5475 ####[facility] [address] [place], [address] Lymphocytes/100 WBC (Bld) 17.0 % Low 19-41 [facility] Comment on above: Order Comment: Order Date: 04/29/24Order Info: 018-1 - CBCD Performed By: #### L 3100.3450, L100.0100, L505.7010, L3100.5475 ####[facility] [address] [place], [address] MCH (RBC) [Entitic mass] 30.2 pg Normal 27.0-32.0 [facility] Comment on above: Order Comment: Order Date: 04/29/24Order Info: 183- - CBCD Performed By: #### L 3100.3450, L100.0100, L505.7010, L3100.5475 ####[facility] [address] [place], [address] MCHC (RBC) [Mass/Vol] 33.9 g/dL Normal 32-36 [facility] Comment on above: Order Comment: Order Date: 04/29/24Order Info: 018- - CBCD Performed By: #### L 3100.3450, L100.0100, L505.7010, L3100.5475 ####[facility] [address] [place], [address] MCV (RBC) [Entitic vol] 89.0 fL Normal 80-94 [facility] Comment on above: Order Comment: Order Date: 04/29/24Order Info: 018-1 - CBCD Performed By: #### L 3100.3450, L100.0100, L505.7010, L3100.5475 ####[facility] [address] [place], [address] Monocytes/100 WBC (Bld) 9.0 % Normal 0-10 [facility] Comment on above: Order Comment: Order Date: 04/29/24Order Info: 0184-1 - CBCD Performed By: #### L 3100.3450, L100.0100, L505.7010, L3100.5475 ####[facility] [address] [place], [address] Neutrophils/100 WBC (Bld) 70.0 % Normal 47-70 [facility] Comment on above: Order Comment: Order Date: 04/29/24Order Info: 018-1 - CBCD Performed By: #### L 3100.3450, L100.0100, L505.7010, L3100.5475 ####[facility] [address] [place], [address] Nucleated RBC (Bld) [#/Vol] 0 10*3/uL Normal 0-5 [facility] Comment on above: Order Comment: Order Date: 04/29/24Order Info: 018- - CBCD Performed By: #### L 3100.3450, L100.0100, L505.7010, L3100.5475 ####[facility] [address] [place], [address] Platelet mean volume (Bld) [Entitic vol] 10.6 fL Normal 6.2-12.0 [facility] Comment on above: Order Comment: Order Date: 04/29/24Order Info: 018- - CBCD Performed By: #### L 3100.3450, L100.0100, L505.7010, L3100.5475 ####[facility] [address] [place], [address] Platelets (Bld) [#/Vol] 209 10*3/uL Normal 150-450 [facility] Comment on above: Order Comment: Order Date: 04/29/24Order Info: 0184-1 - CBCD Performed By: #### L 3100.3450, L100.0100, L505.7010, L3100.5475 ####[facility] [address] [place], [address] RBC (Bld) [#/Vol] 5.17 10*6/uL Normal 4.6-6.2 [facility] Comment on above: Order Comment: Order Date: 04/29/24Order Info: 0184-1 - CBCD Performed By: #### L 3100.3450, L100.0100, L505.7010, L3100.5475 ####[facility] [address] [place], [address] RDW SD 42.8 fl Normal 35.1-43.9 [facility] Comment on above: Order Comment: Order Date: 04/29/24Order Info: 0184- - CBCD Performed By: #### L 3100.3450, L100.0100, L505.7010, L3100.5475 ####[facility] [address] [place], [address] WBC (Bld) [#/Vol] 5.5 10*3/uL Normal 4.4-11.0 [facility] Comment on above: Order Comment: Order Date: 04/29/24Order Info: 0184- - CBCD Performed By: #### L 3100.3450, L100.0100, L505.7010, L3100.5475 ####[facility] [address] [place], [address] Rheumatoid Factoron 04-29-20 24 RHEUMATOID FAC < 10.0 Normal <15 [facility] Comment on above: Order Comment: Order Date: 04/29/24Order Info: 0667-1 - BMPOrder Info: 28518-1 - RA Performed By: #### L 3100.3450, L100.0100, L505.7010, L3100.5475 ####[facility] [address] [place], [address] Orthopedic Visit Reporton Orthopedic Visit Report [facility] [address] [place] [address] OFFICE VISIT Date of Service: 04/21/24 MR#: [id number] Acct: [id number] Name: GARRETT MADDOX Rep #: [id number] : 1965 Provider: Dr. Jagdish garcia DO Age/Sex: 59/M Location: [facility] Status: Signed Intake Vital Signs 03/14/24 10:00 Height 6 ft Intake Visit Reasons: RIGHT KNEE Chief Complaint: 3rd Euflexxa Injection Accompanied by: Self Is patient in pain?: Yes Pain scale (1-10): 2 Allergies kiwi Allergy (Verified 04/21/24 16:04) Food Allergy melon Allergy (Verified 04/21/24 16:04) NEEDS FOLLOW-UP penicillin G benzathine Allergy (Verified 04/21/24 16:04) Rash Penicillins Allergy (Verified 04/21/24 16:04) Rash Medications ???Medication ???Instructions ???Recorded ???Confirmed ???Type multivitamin 1 tab PO DAILY 04/01/21 04/21/24 History ascorbate calcium (vitamin C) 500 500 mg PO DAILY 08/14/22 04/21/24 History mg tablet etodolac 500 mg tablet 500 mg PO BID PRN pain #60 tabs 03/26/24 04/21/24 Rx PFSH Medical History History of exam under anesthesia with epidural steroid injection Wears glasses History of Clostridium difficile infection High cholesterol Dietary restriction Non-smoker History of stress test Cardiology follow-up encounter Paroxysmal supraventricular tachycardia Obesity SVT (supraventricular tachycardia) Wide-complex tachycardia Hyperlipidemia Surgical History History of cardiac catheterization History of colonoscopy H/O arthroscopic knee surgery History of radiofrequency ablation procedure for cardiac arrhythmia (04/19/16) History of cardioversion (04/17/16) History of left heart catheterization (04/18/16) Status post repair of hydrocele History of tonsillectomy Family History Mother CAD (coronary artery disease) S/P AVR (aortic valve replacement) Hx of CABG Breast cancer Brother Colon polyps Father Prostate cancer ALS (amyotrophic lateral sclerosis) Social History Smoking Status: Never smoker alcohol intake: current substance use type: does not use caffeine: No what type of physical activity do you participate in: walking frequency: 3-4 times per week duration: 30-45 minutes/day seatbelt use: always do you feel safe at home: Yes HPI RIGHT KNEE Details: This documentation accurately reflects the service provided and the decisions made by me, Dr. Jagdish Orourke, DO 04/21/24 0934. Part of today???s visit was documented by Yasmine Plascencia ATC, acting as scribe. GARRETT MADDOX is a 59 year old M here today for right knee 3rd Euflexxa injection. Patient states he has very little pain today and rated it a 2/10. He states the left knee is starting to bother him a bit. Patient denies any reactions from the last injection. Ortho Exam General General: Yes no acute distress Neurologic: Yes alert and Yes oriented x3 Psychologic: Yes reasonable and appropriate Right Knee Skin/Wound: No erythema, No ecchymosis and No swelling Knee ROM: Yes ROM-Extension -20 to 0 (-5) and Yes ROM-Flexion 0-140 (112) Examination: No Med jt line tenderness, No Lat jt line tenderness, Yes Crepitus, No TTP Patellar tendon, No TTP Tibial tubercle and No TTP Pes Anserine Stability: NML: Anterior Drawer, NML: Posterior Drawer, NML: Valgus 0, NML: Valgus 30, NML: Varus 0 and NML: Varus 30 Patella Grind: Yes KNEE: no patellar instability Office Procedures Euflexxa Procedure Details:: Obtained consent for injection. Under sterile conditions, injected the patients right knee with 3rd Euflexxa injection. The patient tolerated the injection well without any noted complication. Patient should call our office if redness develops, pain worsens or if they have any concerns. Is this Buy Bill?: Yes Office Meds Euflexxa 10 mg/mL (mw 2.4-3.6 million) intra-articular syringe Performing Provider: Jagdish Orourke DO Performing Location: [facility] Administered by: Jagdish Orourke DO on 04/21/24 16:07 Dose Route Admin Location Dispensed Lot Number Expiration Date NDC Man ufacturer 20 mg intra-articular Right Knee 2 mL [id number] 04/05/25 [address]-2 [employer] Supplemental Info 03/14/2024 x-ray right knee there is moderate tricompartmental DJD with joint space narrowing and spurring 02/04/2024 x-ray right shoulder: mild degenerative change AC joint Coding Level of Care Code Off vis,est,level 3 Diagnoses Primary osteoarthritis of right knee M17.11 Osteoarthritis type: primary Assessment and Plan Assessment and Plan (1) Osteoarthritis of righ (more content not included)... Normal [facility] Orthopedic Visit Reporton Orthopedic Visit Report [facility] [address] [place] [address] OFFICE VISIT Date of Service: 04/07/24 MR#: [id number] Acct: [id number] Name: GARRETT MADDOX Rep #: [id number] : 1965 Provider: Dr. Jagdish garcia DO Age/Sex: 59/M [place] [facility] [place] Status: Signed Intake Vital Signs 03/14/24 10:00 Height 6 ft Weight: 228 lb BMI 30.9 Intake Visit Reasons: RIGHT KNEE Chief Complaint: Right knee Is patient in pain?: Yes Allergies kiwi Allergy (Verified 04/07/24 10:38) Food Allergy melon Allergy (Verified 04/07/24 10:38) NEEDS FOLLOW-UP penicillin G benzathine Allergy (Verified 04/07/24 10:38) Rash Penicillins Allergy (Verified 04/07/24 10:38) Rash PFSH Medical History History of exam under anesthesia with epidural steroid injection Wears glasses History of Clostridium difficile infection High cholesterol Dietary restriction Non-smoker History of stress test Cardiology follow-up encounter Paroxysmal supraventricular tachycardia Obesity SVT (supraventricular tachycardia) Wide-complex tachycardia Hyperlipidemia Surgical History History of cardiac catheterization History of colonoscopy H/O arthroscopic knee surgery History of radiofrequency ablation procedure for cardiac arrhythmia (04/19/16) History of cardioversion (04/17/16) History of left heart catheterization (04/18/16) Status post repair of hydrocele History of tonsillectomy Family History Mother CAD (coronary artery disease) S/P AVR (aortic valve replacement) Hx of CABG Breast cancer Brother Colon polyps Father Prostate cancer ALS (amyotrophic lateral sclerosis) Social History Smoking Status: Never smoker alcohol intake: current substance use type: does not use caffeine: No what type of physical activity do you participate in: walking frequency: 3-4 times per week duration: 30-45 minutes/day seatbelt use: always do you feel safe at home: Yes HPI RIGHT KNEE Details: This documentation accurately reflects the service provided and the decisions made by me, Dr. Jagdish Orourke, DO 04/07/24 0807. Part of today???s visit was documented by [ ], acting as scribe. GARRETT MADDOX is a 59 year old M here today for 2nd Euflexxa injection for right knee. Patient notes that he hasnt really noticed much improvement with the injections yet. Patient complains of right shoulder pain as well. He has been doing physical therapy which he believes is bothering his shoulder with the certain range of motion they are doing. He is taking etodolac for pain. Ortho Exam General General: Yes no acute distress Neurologic: Yes alert and Yes oriented x3 Psychologic: Yes reasonable and appropriate Right Knee Skin/Wound: No erythema, No ecchymosis and No swelling Knee ROM: Yes ROM-Extension -20 to 0 (-5) and Yes ROM-Flexion 0-140 (112) Examination: No Med jt line tenderness, No Lat jt line tenderness, Yes Crepitus, No TTP Patellar tendon, No TTP Tibial tubercle and No TTP Pes Anserine Stability: NML: Anterior Drawer, NML: Posterior Drawer, NML: Valgus 0, NML: Valgus 30, NML: Varus 0 and NML: Varus 30 Patella Translation: 1 Patella Grind: Yes KNEE: no patellar instability Left Knee Patella Translation: 1 Office Procedures Euflexxa Procedure Details:: Obtained consent for injection. Under sterile conditions, injected the patients right knee with 2nd Euflexxa injection. The patient tolerated the injection well without any noted complication. Patient should call our office if redness develops, pain worsens or if they have any concerns. Is this Buy Bill?: Yes Office Meds Euflexxa 10 mg/mL (mw 2.4-3.6 million) intra-articular syringe Performing Provider: Jagdish Orourke DO Performing Location: [facility] Administered by: Jagdish Orourke DO on 04/07/24 10:39 Dose Route Admin Location Dispensed Lot Number Expiration Date [facility] Man ufacturer 20 mg intra-articular right knee 2 mL [id number] 04/05/25 [address]-7 [employer] Supplemental Info 03/14/2024 x-ray right knee there is moderate tricompartmental DJD with joint space narrowing and spurring 02/04/2024 x-ray right shoulder: mild degenerative change AC joint Coding Level of Care Code Off vis,est,level 3 Diagnoses Primary osteoarthritis of right knee M17.11 Osteoarthritis type: primary Assessment and Plan Assessment and Plan (1) Osteoarthritis of right knee: Status: Acute Qualifiers: Osteoarthritis type: primary Qualified Code(s): M17.11 - Unilateral primary osteoarthritis, right knee Orders: Orders Eufl (more content not included)... Normal [facility] Orthopedic Visit Reporton Orthopedic Visit Report [facility] [address] [place] [address] OFFICE VISIT Date of Service: 03/31/24 MR#: [id number] Acct: [id number] Name: GARRETT MADDOX Rep #: [id number] : 1965 Provider: Dr. Jagdish garcia DO Age/Sex: 59/M [place] [facility] [place] Status: Signed Intake Vital Signs 03/14/24 10:00 Height 6 ft Weight: 228 lb BMI 30.9 Intake Visit Reasons: RIGHT KNEE Chief Complaint: Right knee Allergies kiwi Allergy (Verified 03/31/24 14:37) Food Allergy melon Allergy (Verified 03/31/24 14:37) NEEDS FOLLOW-UP penicillin G benzathine Allergy (Verified 03/31/24 14:37) Rash Penicillins Allergy (Verified 03/31/24 14:37) Rash Medications ???Medication ???Instructions ???Recorded ???Confirmed ???Type multivitamin 1 tab PO DAILY 04/01/21 03/31/24 History ascorbate calcium (vitamin C) 500 500 mg PO DAILY 08/14/22 03/31/24 History mg tablet etodolac 500 mg tablet 500 mg PO BID PRN pain #60 tabs 03/26/24 03/31/24 Rx PFSH Medical History History of exam under anesthesia with epidural steroid injection Wears glasses History of Clostridium difficile infection High cholesterol Dietary restriction Non-smoker History of stress test Cardiology follow-up encounter Paroxysmal supraventricular tachycardia Obesity SVT (supraventricular tachycardia) Wide-complex tachycardia Hyperlipidemia Surgical History History of cardiac catheterization History of colonoscopy H/O arthroscopic knee surgery History of radiofrequency ablation procedure for cardiac arrhythmia (04/19/16) History of cardioversion (04/17/16) History of left heart catheterization (04/18/16) Status post repair of hydrocele History of tonsillectomy Family History Mother CAD (coronary artery disease) S/P AVR (aortic valve replacement) Hx of CABG Breast cancer Brother Colon polyps Father Prostate cancer ALS (amyotrophic lateral sclerosis) Social History Smoking Status: Never smoker alcohol intake: current substance use type: does not use caffeine: No what type of physical activity do you participate in: walking frequency: 3-4 times per week duration: 30-45 minutes/day seatbelt use: always do you feel safe at home: Yes HPI RIGHT KNEE Details: This documentation accurately reflects the service provided and the decisions made by me, Dr. Jagdish Orourke, DO 03/31/24812. Part of today???s visit was documented by Leelee SMITH, acting as scribe. GARRETT MADDOX is a 59 year old M here today for 1st right knee Euflexxa injection of the right knee. Ortho Exam General General: Yes no acute distress Neurologic: Yes alert and Yes oriented x3 Psychologic: Yes reasonable and appropriate Right Knee Skin/Wound: No erythema, No ecchymosis and No swelling Knee ROM: Yes ROM-Extension -20 to 0 (-5) and Yes ROM-Flexion 0-140 (112) Examination: No Med jt line tenderness, No Lat jt line tenderness, Yes Crepitus, No TTP Patellar tendon, No TTP Tibial tubercle and No TTP Pes Anserine Stability: NML: Anterior Drawer, NML: Posterior Drawer, NML: Valgus 0, NML: Valgus 30, NML: Varus 0 and NML: Varus 30 Patella Translation: 1 Patella Grind: Yes KNEE: no patellar instability Left Knee Patella Translation: 1 Office Procedures Euflexxa Procedure Details:: Obtained consent for injection. Under sterile conditions, injected the patients right knee with 20mg/2mL of Euflexxa. The patient tolerated the injection well without any noted complication. Patient should call our office if redness develops, pain worsens or if they have any concerns. Is this Buy Bill?: Yes Office Meds Euflexxa 10 mg/mL (mw 2.4-3.6 million) intra-articular syringe Performing Provider: Jagdish Orourke DO Performing Location: [facility] Administered by: Jagdihs Orourke DO on 03/31/24 14:40 Dose Route Admin Location Dispensed Lot Number Expiration Date [facility] [employer]zzie [employer]urer 20 mg intra-articular right knee 2 mL [id number] 04/05/25 [address]-3 [employer] Supplemental Info 03/14/2024 x-ray right knee there is moderate tricompartmental DJD with joint space narrowing and spurring 02/04/2024 x-ray right shoulder: mild degenerative change AC joint Coding Level of Care Code Off vis,est,level 3 Diagnoses Primary osteoarthritis of right knee M17.11 Osteoarthritis type: primary Assessment and Plan Assessment and Plan (1) Osteoarthritis of right knee: Status: Acute Qualifiers: Osteoarthritis type: primary Qualified Code(s): M17.11 - Unilateral primary osteoarthritis, right knee Orders: (more content not included)... Normal [facility] Knee 4 or More Viewson 03-14 Knee 4 or More Views [facility] [address] [place] [address] Knee 4 or More Views MR#: [id number] Acct: [id number] Name: GARRETT MADDOX Rep #: [id number] : 1965 M 59 From: Erasto humphries MD PCP: Dr. Magdalena Fong MD Status: DEP AMB Study: Knee 4 or More Views Date of Exam: 03/14/24 Exam# [id number] Ordering Dr: Jagdish Orourke DO [id number] INDICATION: Right knee pain EXAMINATION/TECHNIQUE : X-RAY - RIGHT XR Knee Complete 4 Views or More 4 VIEWS COMPARISON: No relevant prior comparison study available __ FINDINGS: SOFT TISSUES: Anterior soft tissue swelling. This overlies the patella. No radiopaque foreign body. BONES/JOINTS: No acute fracture or subluxation.. Normal alignment. Skin narrowing at the medial and patellofemoral compartments. Prominent tricompartmental marginal osteophytes. Enthesophyte formation of the patella. No joint effusion. No sclerotic or destructive changes observed. RAD/Knee 4 or More Views IMPRESSION: No fracture or malalignment. Moderate tricompartmental degenerative change, greatest at the patellofemoral compartment. Electronically Signed: Erasto Murillo MD at 1:35 EDT , CC: Dr. Magdalena Fong MD; Dr. Jagdish Orourke DO Conduit Mechanic: Signed Normal [facility] Orthopedic Visit Reporton Orthopedic Visit Report [facility] [address] [place] [address] [address] [place] [address] OFFICE VISIT Date of Service: 03/14/24 MR#: [id number] Acct: [id number] Name: GARRETT MADDOX Rep #: [id number] : 1965 Provider: Dr. Jagdish garcia DO Age/Sex: 59/M [place] [facility] [place] Status: Signed Intake Vital Signs 02/04/24 15:01 03/13/24 13:25 03/14/24 10:00 Height 6 ft 6 ft 6 ft Weight: 228 lb BMI 30.9 Intake Visit Reasons: Right knee Chief Complaint: Right knee Accompanied by: Self Is patient in pain?: Yes (Right knee) Pain scale (1-10): 3 Allergies kiwi Allergy (Verified 03/14/24 10:01) Food Allergy melon Allergy (Verified 03/14/24 10:01) NEEDS FOLLOW-UP penicillin G benzathine Allergy (Verified 03/14/24 10:01) Rash Penicillins Allergy (Verified 03/14/24 10:01) Rash Medications ???Medication ???Instructions ???Recorded ???Confirmed ???Type multivitamin 1 tab PO DAILY 04/01/21 03/14/24 History ascorbate calcium (vitamin C) 500 500 mg PO DAILY 08/14/22 03/14/24 History mg tablet etodolac 500 mg tablet 500 mg PO BID 03/14/24 03/14/24 History PFSH Medical History History of exam under anesthesia with epidural steroid injection Wears glasses History of Clostridium difficile infection High cholesterol Dietary restriction Non-smoker History of stress test Cardiology follow-up encounter Paroxysmal supraventricular tachycardia Obesity SVT (supraventricular tachycardia) Wide-complex tachycardia Hyperlipidemia Surgical History History of cardiac catheterization History of colonoscopy H/O arthroscopic knee surgery History of radiofrequency ablation procedure for cardiac arrhythmia (04/19/16) History of cardioversion (04/17/16) History of left heart catheterization (04/18/16) Status post repair of hydrocele History of tonsillectomy Family History Mother CAD (coronary artery disease) S/P AVR (aortic valve replacement) Hx of CABG Breast cancer Brother Colon polyps Father Prostate cancer ALS (amyotrophic lateral sclerosis) Social History Smoking Status: Never smoker alcohol intake: current substance use type: does not use caffeine: No what type of physical activity do you participate in: walking frequency: 3-4 times per week duration: 30-45 minutes/day seatbelt use: always do you feel safe at home: Yes HPI Right knee Details: This documentation accurately reflects the service provided and the decisions made by me, Dr. Jagdish Orourke, DO 03/14/24 1000. Part of today???s visit was documented by Rhona Farrell LPN, acting as scribe. GARRETT MADDOX is a 59 year old M here today for evaluation of right knee pain. He states the pain has progressively getting worse over the last 6 months. At times when walking he feels as though his knee is going to give out on him. He notices popping when walking. He denies numbness and tingling in his leg. He reports surgery on his right knee in 1986 for a partial tear of his ACL that he had an arthroscopy for. He states that since the surgery he has had pain on and off. He has been walking a lot the last 6-8 months and has noticed if he flexes the knee the wrong way he gets a sharp pain underneath the kneecap. He has been taking Etodolac for pain. Ortho Exam General General: Yes no acute distress Neurologic: Yes alert and Yes oriented x3 Psychologic: Yes reasonable and appropriate Right Knee Skin/Wound: No erythema, No ecchymosis and No swelling Knee ROM: Yes ROM-Extension -20 to 0 (-5) and Yes ROM-Flexion 0-140 (112) Examination: No Med jt line tenderness, No Lat jt line tenderness, Yes Crepitus, No TTP Patellar tendon, No TTP Tibial tubercle and No TTP Pes Anserine Stability: NML: Anterior Drawer, NML: Posterior Drawer, NML: Valgus 0, NML: Valgus 30, NML: Varus 0 and NML: Varus 30 Patella Translation: 1 Patella Grind: Yes KNEE: no patellar instability Left Knee Patella Translation: 1 Office Procedures Ortho Injections Injections Yes Knee Right Is this a patient provided medication?: No Details: Obtained consent for injection. Under sterile conditions, injected the patients right knee with 1.5cc bupivacaine 1.5cc lidocaine 1cc depo medrol. The patient tolerated the injection well without any noted complication. Patient should call our office if redness develops, pain worsens or if they have any concerns. Office Meds Depo-Medrol 40 mg/mL suspension for injection Performing Provider: Jagdish Orourke DO Performing Location: [facility] Administered by: Jagdish Orourke DO on 03/14/24 10:42 Dose (more content not included)... Normal [facility] Inital Evaluation (1) - PTon 03-07-2024 Inital Evaluation (1) - PT [facility] [address] [place] [address] / REHABILITATION SERVICES INITIAL EVALUATION MR#: [id number] Acct: [id number] Name: GARRETT MADDOX Rep #: [id number] : 1965 59 From: Chandan Molina DPT, OCS, CSCS Referring Dr.: Dr. Jagdish Orourke DO Status: R EG RCR Insurance: [employer] SELF [employer]Y INSURANCE Patient's Visit Information Visit Information Visit Information: GARRETT MADDOX is a 59 year old M referred to Physical Therapy by Dr. Jagdish Orourke DO with a diagnosis of RC tendonitis R.. Date of Evaluation: 03/07/24 Physical Therapist: Chandan Molina DPT, OCS, CSCS Visit Plan Frequency: 2x /Week Duration: 4-6 Weeks Plan: 2x/week for 4-6 weeks... IE:Avoid aggravating activities, ice 20 minutes if sore. Upper arms at side for all repetitive activities. Posture is hugely important for healing Sleep left side with pillows under right arm or back, avoid direct right sidelying and tummy lying. Avoid repetitive overhead activities. treat with : Rc and scap strength and postural strength progressing to HEP as tolerated. Can use US nonthermal and TENS if painful at rest but should not need often.ice ROM shoulder and manual therapy grade 1-2 mobs Subjective Subjective: has bulging discs in back and needs to do PPU. Doing those hurt his R shoulder in January. has 30 years of shoulder problems but not treatment. Saw doctor Markus and irritated RC and gave injection steroid a couple weeks ago which helped. Used to hurt to play frisbee golf or throw a ball. Dressing was difficult at first. No problem anymore. Activities avoiding pressups for back. WB through it is problematic. Anti inflammatories. Activities: normal outside of PPU, avoids fly fishing No current exercises sleep is OK Pain R shoulder: Pain Intensity (Out of 10): 1 Pain Intensity Range: 0, 3 and 7 Objective Objective: FW head and prtracged scapular posture gently. Tender to palpation over r supraspinatus insertion. + HK, + neer, - sulcus, - ext rotation lag test.- apprehension., - Yergasons test. AROM R arm is good, slightly tight top of elevation B, mild pain arc. er adn IR are full but painful at end of both on R. elbow and wrist aROM WFL B. sensation WNL B UE to gross light touch. reflexes 1/3 bi and tri B. strength scap Good without pain, shoulder flexion adn abd 4/5 B with pain on R slightly. empty can +. bi and tri and wrist ext adn thumb ext strength 4+/5 without pain. R shoulder IR/4+ L 4+, er 4- R and pain and 4 L and no pain. Balance/Special Test Scores Quick DASH Score: 31.8175 Goals Goal 1:: Pain 90% improved and 1/10 at worst for a week Goal Time Frame: 4-6 Weeks Goal 2:: quickdash score 14 or better Goal Time Frame: 4-6 Weeks Goal 3:: I apporopriate HEP for RC scap strength to limit future problems Goal Time Frame: 4-6 Weeks Goal 4:: PPU x 20 without increasing pain Goal Time Frame: 4-6 Weeks Rehabilitation Potential Physical Therapy Diagnosis: weakness and pain R shouldeer limiting funciton Rehabilitation Potential: Fair Anticipated Interventions Patient/Client Instruction: Educate patient on: Condition and Plan of Care For the Purpose of:: To decrease pain, To increase ROM, To improve nutrient delivery to tissue and To improve muscle performance and motor function Therapeutic Exercise to Include: Strength training, Postural training, Passive ROM, Active ROM and Scapular Strength/Stabilizatio n For the Purpose of:: To decrease pain, To increase ROM, To improve nutrient delivery to tissue, To improve muscle performance and motor function and To increase tolerance to activity/condition/po sition Manual Therapy Techniques to Include: Mobilization, Passive ROM and Soft tissue mobilization For the Purpose of:: To decrease pain, To decrease swelling/inflammation , To improve nutrient delivery to tissue, To improve muscle performance and motor function and To increase tolerance to activity/condition/po sition TENS: Yes Cryotherapy (ice pack, ice massage): Yes Ultrasound (thermal/non thermal): Yes (nonthermal) For the Purpose of:: To decrease pain, To decrease swelling/inflammation and To improve nutrient delivery to tissue Text: Thank you for the opportunity to evaluate your patient. For Medicare and Medicare HMO plans, please review the plan of care and approve it. It will need to be FAXED BACK to us at [phone] for Medicare purposes. For Medicare only, by signing this I certify the plan of care. Please let me know if there are questions or concerns regarding this plan of care. Physician Signature: Date : 03/07/24 1546 CC: Dr. Magdalena Fong MD; Dr. Jagdish Orourke DO EBG Signed Normal [facility] Orthopedic Visit Reporton Orthopedic Visit Report [facility] [address] [place] [address] OFFICE VISIT Date of Service: 03/03/24 MR#: [id number] Acct: [id number] Name: GARRETT MADDOX Rep #: [id number] : 1965 Provider: Dr. Jagdish garcia DO Age/Sex: 59/M [place] [facility] Status: Signed Intake Vital Signs 02/04/24 15:01 Height 6 ft Weight: 228 lb 8 oz BMI 30.9 Intake Visit Reasons: RIGHT SHOULDER Accompanied by: Self Is patient in pain?: No Allergies kiwi Allergy (Verified 03/03/24 14:50) Food Allergy melon Allergy (Verified 03/03/24 14:50) NEEDS FOLLOW-UP penicillin G benzathine Allergy (Verified 03/03/24 14:50) Rash Penicillins Allergy (Verified 03/03/24 14:50) Rash Medications ???Medication ???Instructions ???Recorded ???Confirmed ???Type multivitamin 1 tab PO DAILY 04/01/21 03/03/24 History ascorbate calcium (vitamin C) 500 500 mg PO DAILY 08/14/22 03/03/24 History mg tablet PFSH Medical History (Updated 02/04/24 @ 15:02 by Vilma Feng MA) History of exam under anesthesia with epidural steroid injection Wears glasses History of Clostridium difficile infection High cholesterol Dietary restriction Non-smoker History of stress test Cardiology follow-up encounter Paroxysmal supraventricular tachycardia Obesity SVT (supraventricular tachycardia) Wide-complex tachycardia Hyperlipidemia Surgical History History of cardiac catheterization History of colonoscopy H/O arthroscopic knee surgery History of radiofrequency ablation procedure for cardiac arrhythmia (04/19/16) History of cardioversion (04/17/16) History of left heart catheterization (04/18/16) Status post repair of hydrocele History of tonsillectomy Family History Mother CAD (coronary artery disease) S/P AVR (aortic valve replacement) Hx of CABG Breast cancer Brother Colon polyps Father Prostate cancer ALS (amyotrophic lateral sclerosis) Social History Smoking Status: Never smoker alcohol intake: current substance use type: does not use caffeine: No what type of physical activity do you participate in: walking frequency: 3-4 times per week duration: 30-45 minutes/day seatbelt use: always do you feel safe at home: Yes HPI RIGHT SHOULDER Details: This documentation accurately reflects the service provided and the decisions made by me, Dr. Jagdish Orourke, DO 03/03/24 1004. Part of today???s visit was documented by [ ], acting as scribe. GARRETT MADDOX is a 59 year old M here today for 03/03/2024 :right shoulder pain. He had an injection on 02/04/24 which was helpful. He also took etodolac for 3 weeks. He states that he is better since his last appointment but still doesnt feel confident doing his press ups or pushing. He denies any physical therapy. He has increased pain with reaching behind his back. He has good range of motion. He notes that his pain is not constant, and describes it as an achiness deep lateral shoulder. He denies any catching or popping. 02/04/2024 visit: today for Right Shoulder pain. Patient states his shoulder has been bothering him for 30 years. Patient can not recall any injury to his shoulder. Patient has limited ROM it is worse with overhead or behind the back reaching. Patient pain is inside . Patient denies any numbness or tinging. Patient had PT from July to October for his back. Patient does use ice and that helps. Patient hasn't had any injections in his shoulder. Patient does daily back exercises the pain got worse around the when he was doing some back extensions and putting all of his weight through his elbows hurt after he was done but not while he was doing it. Patient also states that he can not throw a football or any kind of ball. Of note he did also get a flu shot in this arm earlier in the month He has lumbar spine issues and was doing physical therapy, and was doing multiple back extensions and press ups, and that hurt his shoulder. His pain got worse on 01/23/24 after doing his exercises when he stopped doing the exercises. He complains of pain over his anterior shoulder but deep. He has decreased range of motion since last week.He denies any numbness or tingling. He takes ibuprofen for pain. Educated the patient about the anatomy of the shoulder and etiology of his pain. Spoke with him about having rotator cuff inflammation most likely I do not think he tore his rotator cuff however this get exacerbated after doing weightbearing through his upper extremities to perform back extension exercises. options-, subacromial steroid injection oral anti-inflammatory, physical therapy. He should avoid upper extre (more content not included)... Normal [facility] Orthopedic Visit Reporton Orthopedic Visit Report [facility] [address] [place] [id number] OFFICE VISIT Date of Service: 02/04/24 MR#: [id number] Acct: [id number] Name: GARRETT MADDOXDERIC Rep #: [id number] : 1965 Provider: Dr. Jagdish garcia DO Age/Sex: 58/M Location: [facility] Status: Signed Intake Vital Signs 09/19/22 07:59 02/04/24 15:01 Height 6 ft 6 ft Weight: 228 lb 8 oz BMI 30.9 Intake Visit Reasons: RIGHT SHOULDER Accompanied by: Self Is patient in pain?: Yes Pain scale (1-10): 2 Allergies kiwi Allergy (Verified 02/04/24 15:01) Food Allergy melon Allergy (Verified 02/04/24 15:01) NEEDS FOLLOW-UP penicillin G benzathine Allergy (Verified 02/04/24 15:01) Rash Penicillins Allergy (Verified 02/04/24 15:01) Rash Medications ???Medication ???Instructions ???Recorded ???Confirmed ???Type multivitamin 1 tab PO DAILY 04/01/21 02/04/24 History ascorbate calcium (vitamin C) 500 500 mg PO DAILY 08/14/22 02/04/24 History mg tablet etodolac 500 mg tablet 500 mg PO BID #60 tabs 02/04/24 02/04/24 Rx PFSH Medical History (Updated 02/04/24 @ 15:02 by Vilma Feng MA) History of exam under anesthesia with epidural steroid injection Wears glasses History of Clostridium difficile infection High cholesterol Dietary restriction Non-smoker History of stress test Cardiology follow-up encounter Paroxysmal supraventricular tachycardia Obesity SVT (supraventricular tachycardia) Wide-complex tachycardia Hyperlipidemia Surgical History History of cardiac catheterization History of colonoscopy H/O arthroscopic knee surgery History of radiofrequency ablation procedure for cardiac arrhythmia (04/19/16) History of cardioversion (04/17/16) History of left heart catheterization (04/18/16) Status post repair of hydrocele History of tonsillectomy Family History Mother CAD (coronary artery disease) S/P AVR (aortic valve replacement) Hx of CABG Breast cancer Brother Colon polyps Father Prostate cancer ALS (amyotrophic lateral sclerosis) Social History Smoking Status: Never smoker alcohol intake: current substance use type: does not use caffeine: No what type of physical activity do you participate in: walking frequency: 3-4 times per week duration: 30-45 minutes/day seatbelt use: always do you feel safe at home: Yes HPI RIGHT SHOULDER Details: This documentation accurately reflects the service provided and the decisions made by me, Dr. Jagdish Orourke, DO 02/04/24 8475. Part of today???s visit was documented by [ ], acting as scribe. GARRETT MADDOX is a 58 year old M here today for Right Shoulder pain. Patient states his shoulder has been bothering him for 30 years. Patient can not recall any injury to his shoulder. Patient has limited ROM it is worse with overhead or behind the back reaching. Patient pain is inside . Patient denies any numbness or tinging. Patient had PT from July to October for his back. Patient does use ice and that helps. Patient hasn't had any injections in his shoulder. Patient does daily back exercises the pain got worse around the when he was doing some back extensions and putting all of his weight through his elbows hurt after he was done but not while he was doing it. Patient also states that he can not throw a football or any kind of ball. Of note he did also get a flu shot in this arm earlier in the month He has lumbar spine issues and was doing physical therapy, and was doing multiple back extensions and press ups, and that hurt his shoulder. His pain got worse on 01/23/24 after doing his exercises when he stopped doing the exercises. He complains of pain over his anterior shoulder but deep. He has decreased range of motion since last week.He denies any numbness or tingling. He takes ibuprofen for pain. Ortho Exam General General: Yes no acute distress Neurologic: Yes alert and Yes oriented x3 Psychologic: Yes reasonable and appropriate Right Shoulder Skin/Wound: Yes CDI, No ecchymosis, No erythema and No swelling Testing: Positive Hawkin's, TTP Biceps, AROM-Forward Elevation 0-180 (165), Kern and belly press normal; Negative Speed's or TTP AC Joint SHOULDER: shoulder abduction full with pain, pain with resisted abduction But good strength. 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 60 ER at side. 5 out of 5 abduction flexion external/internal rotation. Office Procedures Ortho Injections Injections Yes Subacromial Injection Right Is this a patient provided medication?: No Details: Obtained consent for injection. Under sterile conditions, injected the patient's right subacromial joint with 4cc bupivac (more content not included)... Normal [facility] Shoulder min 2 Viewson 02-03 Shoulder min 2 Views [facility] [address] [place] [address] Shoulder min 2 Views MR#: [id number] Acct: [id number] Name: GARRETT MADDOX Rep #: [id number] : 1965 M 58 From: [place] MD PCP: Dr. Magdalena Fong MD Status: DEP AMB Study: Shoulder min 2 Views Date of Exam: 02/04/24 Exam# [id number] Ordering Dr: Jagdish Orourke DO [id number] STUDY: X-RAY - RIGHT SHOULDER REASON FOR EXAM: Male, 58 years old. Pain. TECHNIQUE: 4 views of the right shoulder. COMPARISON: None. FINDINGS: Normal glenohumeral articulation. There is hypertrophic acromioclavicular arthrosis. Normal acromion. Normal humeral head and visualized proximal humerus. The soft tissue structures are unremarkable. There is no demonstrated fracture. Normal visualized pulmonary apex. RAD/Shoulder min 2 Views IMPRESSION: Hypertrophic acromioclavicular arthrosis. No demonstrated fracture. Electronically Signed: El Jasso MD at 16:04 EDT , CC: Dr. Magdalena Fong MD; Dr. Jagdish Orourke DO Conduit Mechanic: Signed Normal [facility] HISTORY PHYSICALon HISTORY PHYSICAL HNO ID: [id number] Author: JORGE RODAS MD Service: Pain Management Author Type: Physician Type: H&P Filed: 01/01/2024 07:08 Note Text: HISTORY AND PHYSICAL EXAMINATION PATIENT NAME: Garrett Maddox DATE of SERVICE: 01/01/2024 Garrett Maddox is here for the pain mangement procedure. The patients presents with persistent pain complaints. Garrett Maddox denies any interval changes or new pain complaints or focal neurologic deficits. No past medical history on file. No past surgical history on file. Social History Tobacco Use Smoking status: Never Smokeless tobacco: Never Substance Use Topics Alcohol use: Yes Comment: 12-15 beers per week Drug use: Never No family history on file. ALLERGIES Allergen Reactions Penicillins Rash No current facility-administered medications for this encounter. Physical Exam: Performed in conjunction with observation. The patient is alert and oriented x3. The patient is in no acute distress. Neck: Supple. The range of motion is intact. Lungs: clear CVR: RRR. Extremities: no reported edema or erythema. Examination indicates no changes Impression: Lumbar foraminal stenosis Plan: The informed consent has been obtained. The plan is to proceed with the procedure as planned. SIGNATURE: Jorge Rodas MD DATE: January 01, 2024 TIME: 7:08 AM [facility] OPERATIVE NOon 01-01-2024 OPERATIVE NO HNO ID: [id number] Author: JORGE RODAS MD Service: Pain Management Author Type: Physician Type: Operative Report Filed: 01/01/2024 08:36 Note Text: PATIENT NAME: Garrett Maddox SERVICE DATE: 01/01/2024 PROCEDURE NOTE PREOPERATIVE DIAGNOSIS(ES) Lumbar radiculopathy Lumbar disc displacement Lumbar canal stenosis without neurogenic claudication Lumbar DDD POSTOPERATIVE DIAGNOSIS(ES): Same PROCEDURE: Left L5-S1 lumbar transforaminal epidural steroid injection under fluoroscopy. ANESTHESIA: Conscious sedation with Versed 3mg, IV INDICATIONS: The patient presents for lumbar transforaminal epidural steroid injection. Since the last assessment, the patient denies any new pain complaints and denies any focal neurological deficits. The risks and benefits of the procedure were discussed. Specifically, the risks of bleeding, infection, inadvertent dural puncture, spinal heaches, vasovagal reaction, epidural hematoma, partial or permanent nerve injury were covered. The potential side effects of medications used in procedures including increase in lumbar pain, headaches, facial redness or warmth (flushing), anxiety or mood swings, sleeplessness, fever, high blood sugar, brief reduction in immunity were discussed. The patient expressed understanding of potential risks and wishes to proceed with the procedure. PROCEDURE NOTE: The patient was brought to the operating room. The patient was placed in the prone position with pressure points protected. Continuous hemodynamic monitoring was initiated including blood pressure, EKG, and pulse oximetry. Supplemental oxygen per nasal canula was started. The intravenous medication was administered incrementally to provide conscious sedation and to allow the patient to remain comfortable and conversant throughout the procedure. The lower back was prepped in sterile fashion. Upon AP projection under a fluoroscopy, the lumbar L5-S1 level was identified. The fluoroscopy was rotated in oblique projection to identify the neuroforamen. Entry point was marked and anesthetized with 2ml of 0.25% Marcaine. This was followed by insertion of a 5 inch spinal needle, which was inserted and advanced towards the 12 o' clock of the L5-S1 neuroforamen. Once the Needle tip contacted the inferior lateral aspect of the pedicle, aspiration was performed which was negative for blood or CSF. This was followed by injection of 0.2 ml of Omnipaque 300, which revealed a spread through the neuroforamen into the anterior epidural space. There was no evidence of intravascular or intrathecal flow. This was then followed by a total injection of 2 mL of 0.25% Marcaine with 40 mg of Depomedrol. The patient tolerated the procedure well. The needle was removed intact. Dry dressing was placed over the injection site. The patient was taken to the recovery room in stable condition. EBL: nil Start time: 8:27 AM End time: 8:28 AM I was present the entire time and personally performed the procedure. SIGNATURE: Jorge Rodas MD DATE: January 01, 2024 TIME: 8:36 AM [facility] 12-06-2023 [facility] Office Visit (PNMDNA ) GARRETT MADDOX ([id number]) 1965 M Date Time Provider Department 12/06/23 2:30 PM DENISE REYNAGA During your visit today, we recorded the following information about you: Denise Reynaga, BATCH UNLOADER.POSITION CLASSIFIER 12/06/2023 6:50 PM Signed Subjective Garrett Maddox presents to [facility] Pain Management Department for a follow up appointment. Since the last visit, Garrett Maddox states the pain has been persistent. Current pain intensity is 2 on a scale of 0-10. Pain located in left lumbar region and gluteal region and radiates to the left lower extremity along the posterior aspect to the level of the posterior thigh. Pain described as pinching. Symptoms interfere with walking. Pain is exacerbated by walking, lifting, bending, sitting and standing too long. Pain is mitigated by lumbar extensions. Patient Entered Questionnaires PROMIS Score Percentiles 04/30/2023 08/07/2023 12/05/2023 PROMIS Global Health Scale Physical Health Percentile 22* 22* 31 41 Mental Health Percentile 26* 26* 19* 19* 04/08/2023 08/07/2023 12/05/2023 Physical Health Physical Function Percentile 7 14 21* Pain Interference Percentile 18* 31 21* Percentiles provide an indication of how the patient's score ranks in relation to the general population. Higher percentile rankings indicate better function/quality of life. 50th percentile is the average of the general population and indicates half of respondents had a worse score. > 31st percentile is within normal limits or better * < 31st percentile is at least ? SD worse than population, which may be clinically relevant < 16th percentile is at least 1 SD worse than population and warrants attention Review of Systems Constitutional: (-) Weight Gain (-) Weight Loss (-) Fatigue Cardiovascular: (-) hx heart surgery (-) Pacemaker Respiratory: (-) Shortness of Breath (-) Cough (-) Snoring Gastrointestinal: (-) Incontinence (-) Diarrhea (-) Constipation (-) Nausea/Vomiting Endocrine: (-) Thyroid Disorder (-) Diabetes Hematologic: (-) Prolonged Bleeding (-) Easy Bruising Genitourinary: (-) Incontinence (-) Frequency (-) Urinary Urgency Skin: (-) Open sores/wound Neurologic: (-) Headache (-) Double Vision Psychiatric: (-) Depression (-) Anxiety (-) Personal History of Alcohol or Substance Abuse (-) Family History of Alcohol or Substance Abuse Chief Complaint Patient presents with: Back Pain Physical Examination There were no vitals taken for this visit. General:well appearing and alert Skin: Skin color, texture, turgor normal, no rashes or lesions HEENT: normal Cardiovascular: Regular, rate and rhythm Lungs: Normal respiratory rate and rhythm, unlabored on room air Musculoskeletal: Back: Tenderness on palpation over the lumbar spine. , Tenderness over the left lumbar paraspinal muscles, ROM intact Extremities: Extremities normal. No deformities, edema, or skin discoloration Neurological: Mental Status: alert Gait: Normal. Trigger points: lumbosacral spine muscles. Assessment Assessment : Patient presents for a follow up He has chronic low back pain that radiates into the bottom of the left buttock He completed PT and continues his exercises and core strengthen Dr. Rodas previously discussed a left L5-S1 TFESI. Patient would like to proceed with injection Encounter Diagnosis ICD-10-CM 1. Radiculopathy, lumbar region M54.16 INJ TRANSFORAMINAL EPID ANES/STER LS SINGL 2. Displacement of lumbar intervertebral disc without myelopathy M51.26 INJ TRANSFORAMINAL EPID ANES/STER LS SINGL PROMIS-10 Global Health In general, would you say your health is:: Good In general, would you say your quality of life is:: Good In general, how would you rate your physical health?: Good In general, how would you rate your mental health, including your mood and your ability to think?: (!) Fair In general, how would you rate your satisfaction with your social activities and relationships?: Good In general, please rate how well you carry out your usual social activities and roles. (This includes activities at home, at work and in your community, and responsibilities as a parent, child, spouse, employee, friend, etc.): Good To what extent are you able to carry out your everyday physical activities such as walking, climbing stairs, carrying groceries, or moving a chair?: (!) Mostly In the past 7 days, how often have you been bothered by emotional problems such as feeling anxious, depressed or irritable?: (!) Sometimes In the past 7 days, how would you rate your fatigue on average?: Mild In the past 7 days, how would you rate your pain on average?: 2 PROMIS-10 physical raw score: 15 Global Physical Health Raw Score: 15 PROMIS-10 physical T score: 47.7 Global Physical Health T (more content not included)... Normal [facility] CNOVon 08-08-2023 CNOV Office Visit (PNMDNA ) GARRETT MADDOX ([id number]) 1965 M Date Time Provider Department 08/08/23 9:00 AM JORGE RODAS During your visit today, we recorded the following information about you: Jorge Rodas MD 08/08/2023 10:49 AM Signed [facility] Date: August 08, 2023 - 9:09 AM Chief Complaint: lower back pain SUBJECTIVE: Mr. Maddox presents to the [facility] for a follow up appointment regarding chronic lower back pain. He states that since the last visit symptoms have been persistent. The pain is located in the left lumbar region and gluteal region and radiates to the left lower extremity along the posterior aspect to the level of the posterior thigh. // The pain is described as dull and tightness and is rated as 2 on a scale of 0-10. Symptoms interfere with walking. The pain is exacerbated by lifting, bending, sitting, and standing for too long. The pain is mitigated by lumbar extensions.. He is currently receiving medications through the [facility]. He is not having difficulty with his PMC medications. The medications are ineffective. REVIEW OF SYSTEMS: Constitutional: (-) Fever (-) Night Sweats (-) Weight Gain (-) Weight Loss (-) Fatigue Cardiovascular: (-) Chest Pain (-) Palpitations (-) Lightheadedness (-) Swelling of Ankles (-) Hx Heart Surgery Respiratory: (-) Shortness of Breath (-) Cough (-) Wheezing (+) Snoring Gastrointestinal: (-) Incontinence (-) Abdominal Pain (-) Diarrhea (-) Constipation (-) Nausea/Vomiting (-) Heart Burn Endocrine: (-) Thyroid Disorder (-) Diabetes Hematologic: (-) Prolonged Bleeding (-) Easy Bruising Genitourinary: (-) Incontinence (-) Frequency (-) Urinary Urgency Skin: (-) Rashes (-) Itching (-) Other Lesions Neurologic: (-) Headache (-) Double Vision (-) Confusion (-) Paralysis Psychiatric: (-) Depression (+) Anxiety (-) Delusions (-) Hallucinations (-) Personal History of Alcohol or Substance Abuse (-) Family History of Alcohol or Substance Abuse No past medical history on file. No past surgical history on file. ALLERGIES Allergen Reactions Penicillins Rash Current Outpatient Medications Medication Sig tiZANidine (ZANAFLEX) 4 mg tablet Take 1 tablet by mouth three times a day as needed. multivitamin tablet Take 1 tablet by mouth once daily. No current facility-administered medications for this visit. I have reviewed the nurses notes and I am aware of the family/social history. Since the last evaluation the medical history has not changed. PDMP website checked and validated. All prescriptions have been APPROPRIATELY filled. No suspicious activity was identified. 08/08/2023 by Jorge Rodas MD Narcotic Agreement reviewed and signed?: N/A on August 08, 2023 Urine Panel: No results found for: UQCANN, UQBNZL, DFO4SYG, UQAMPH, UQMAMP, UQBUPRE, UQNORBUP, UQMTHD, UQEDDP, UQTRAM, UQDTRM, UQFNTL, UQNFTL, UQCODE, UQMORP, UQDCDN, UQHCOD, UQOXYC, UQHMOR, UQOXYM, UQCREA, UQPH, UQSPGR, UQOXID, UQSPQ The pain panel was N/A PHYSICAL EXAMINATION: Performed in conjunction with observation. The patient was alert and oriented x3. The patient was in no acute distress. Lungs: Clear, negative for dyspnea or distress. CVR: Regular Rate. Negative for SOB or peripheral edema. Neck: Supple. The range of motion was intact. Negative focal tenderness Back: Range of motion of the trunk was intact.. Left paralumbar tenderness extends to the gluteal region. SLR: Negative Facet Loading: Equivocal with axial loading and extension. SI joint: Negative PSIS tenderness. Extremities: no reported edema or erythema. Motor: Negative focal deficits Gait: Within normal limits ASSESSMENT: Ddd (degenerative disc disease), lumbar (primary encounter diagnosis) Displacement of lumbar intervertebral disc without myelopathy Intervertebral disc stenosis of neural canal of lumbar region PLAN: Prior available imaging studies were reviewed. Findings were discussed. Injection history was reviewed. Medication use and compliance were reviewed. 1. Most recent MRI of the lumbar spine was reviewed with the patient. The patient has foraminal narrowing at L4-5 level worse on the left side and left-sided disc displacement L5-S1. When comparing to 2020 MRI films there has not been a significant change. The patient improved with physical therapy. Recommend conservative course. Recommend continuing home physical therapy program. 2. Interventional procedure options discussed. None at this time 3. No new medication was prescribed. 4. Encouraged regular home exercise program. 5) (more content not included)... Normal [facility] 07-13-2023 MYAN Telephone (PNMDNA) GARRETT MADDOX ([id number]) 1965 M Date Time Provider Department 07/13/23 JORGE RODAS PNCHITO During your visit today, we recorded the following information about you: Gus Pennington RN 07/13/2023 12:[address] Rodas reviewed patient's thoracic XRAY. Thoracic XRAY shows: No acute findings General degenerative disc disease (wear and tear) Dr. Rodas recommends proceeding with the lumbar injection procedure scheduled 07/20/2023. [employer] message sent. Gus Pennington RN 07/13/2023 1:38 PM Signed [employer] message read: Last read by Garrett Maddox at 1:33 PM on 07/13/2023. Closing encounter. Allergies As of Date: 07/13/2023 Noted Allergy Reaction PENICILLINS 08/04/2021 2 - Rash Date Reviewed: 02/14/2022 Reviewed by: Yoselin Martinez RN - Fully Assessed Reason for Visit: Results [95] Cmt: Thoracic XRAY Prescriptions as of 07/13/2023 - tiZANidine (ZANAFLEX) 4 mg tablet Take 1 tablet by mouth three times a day as needed. - multivitamin tablet Take 1 tablet by mouth once daily. Problem List As Of Date 07/13/2023 Noted Resolved DDD (degenerative disc disease), lumbar [M51.36]07/20/2021 Intervertebral disc stenosis of neural canal of*07/20/2021 Displacement of lumbar intervertebral disc with*07/20/2021 Radiculopathy, lumbar region [M54.16] 07/20/2021 Muscle pain [M79.10] 04/13/2023 Encounter Status:Closed by GUS EPNNINGTON on 07/13/23 [facility] CNOVon 07-10-2023 CNOV Office Visit (PNMDNA ) GARRETT MADDOX ([id number]) 1965 M Date Time Provider Department 07/10/23 10:30 AM DENISE REYNAGA During your visit today, we recorded the following information about you: Denise Reynaga, BATCH UNLOADER.POSITION CLASSIFIER 07/12/2023 6:07 PM Signed Subjective Garrett Maddox presents to [facility] Pain Management Department for a follow up appointment. Since the last visit, Garrett Maddox states the pain has been persistent. Current pain intensity is 8 on a scale of 0-10. Pain located in lower back pain that radiates down LE. Pain described as aching, burning, and dull Symptoms interfere with physical activity. Pain is exacerbated by unable to pinpoint exacerbating factors/positions. Pain is mitigated by unable to pinpoint positions/factors that are mitigating. Review of Systems Constitutional: (-) Weight Gain (-) Weight Loss (-) Fatigue Cardiovascular: (-) hx heart surgery (-) Pacemaker Respiratory: (-) Shortness of Breath (-) Cough (+) Snoring Gastrointestinal: (-) Incontinence (-) Diarrhea (-) Constipation (-) Nausea/Vomiting Endocrine: (-) Thyroid Disorder (-) Diabetes Hematologic: (-) Prolonged Bleeding (-) Easy Bruising Genitourinary: (-) Incontinence (-) Frequency (-) Urinary Urgency Skin: (-) Open sores/wound Neurologic: (-) Headache (-) Double Vision Psychiatric: (-) Depression (+) Anxiety (-) Personal History of Alcohol or Substance Abuse (-) Family History of Alcohol or Substance Abuse Chief Complaint Patient presents with: Low Back Pain Physical Examination There were no vitals taken for this visit. General:well appearing and alert Skin: Skin color, texture, turgor normal, no rashes or lesions HEENT: normal Cardiovascular: Regular, rate and rhythm Lungs: Normal respiratory rate and rhythm, unlabored on room air Musculoskeletal: Back: Tenderness on palpation over the lumbar spine. , Tenderness over the left lumbar paraspinal muscles, Tenderness on palpation over the thoracic spine. , Tenderness over the right thoracic paraspinal muscles, Extremities: Normal exam of the extremities Neurological: Mental Status: alert Motor Strength: Motor strength and tone are 5/5 all throughout. Sensory: Not Examined Gait: Antalgic. Trigger points: paravertebral thoracic muscles and lumbosacral spine muscles. Assessment Assessment : Patient presents for a follow up visit He reports he was on an airplane x2 weeks ago and helped to take down someone's carry on bag from the overhead bind and now is experiencing increased pain. He feels pressure when he deep breaths He went to see his PCP and placed on Prednisone for 5 days, muscle relaxer-flexeril and mobic. Tried robaxin He reports the pred did not help and flexeril caused drowsiness Discussed TENS UNIT and OTC salon pas patches Cancelled his trip to [facility] due to the pain He is schedule for a lumbar TFSI in the next week Has chronic low back pain that radiates down the left LE Encounter Diagnosis ICD-10-CM 1. Muscle pain M79.10 XR THORACIC LIMITED 2V AP/LAT CONSULT TO PHYSICAL THERAPY 2. DDD (degenerative disc disease), thoracic M51.34 XR THORACIC LIMITED 2V AP/LAT CONSULT TO PHYSICAL THERAPY 3. Radiculopathy, lumbar region M54.16 CONSULT TO PHYSICAL THERAPY 4. Intervertebral disc stenosis of neural canal of lumbar region M99.53 CONSULT TO PHYSICAL THERAPY PROMIS CAT Pain Interference 04/08/2023 PROMIS Pain Interference T-Score (range: 10 - 90) 59 (mild) PROMIS Pain Interference Percentile 18% OARRS Report: Reviewed: The patient's OARRS report was reviewed and is consistent with the reported medication use. Plan Injection history was reviewed. Medication use and compliance were reviewed. 1. Continue medication management through the [facility] 2. The following approved medication requests have been transmitted electronically. Requested Prescriptions Signed Prescriptions Disp Refills tiZANidine (ZANAFLEX) 4 mg tablet 90 tablet 0 Sig: Take 1 tablet by mouth three times a day as needed. 3. Ordered thoracic xr 4. Ordered PT 5. Interventional procedure options discussed. Is scheduled for left lumbar TFESI 6) F/U in 6 weeks after the injection The level of medical decision making for this encounter was low level. I spent a total of 25 minutes on the date of the service which included preparing to see the patient, [id number] patient care, completing clinical documentation, performing a medically appropriate examination, and ordering medications, tests, or procedures. 1. This document has been created with the use of voice recognition technology. It may contain inaccuracies: (e.g. misspellings, inaccurate syntax or word sense) that have escaped review. 2. The physician, nursing staff and medical assistants are a kirill (more content not included)... Normal [facility] XR THORACIC 2V AP/LATon 06-15 XR THORACIC 2V AP/LAT * * *Final Report* * * DATE OF EXAM: Jul 10 2023 11:21AM MDX [id number] - XR THORACIC 2V AP/LAT / PROCEDURE REASON: multiple diagnoses * * * * Physician Interpretation * * * * Thoracic spine: HISTORY: Indication: Muscle pain DDD (degenerative disc disease), thoracic thoracic back pain thoracic back pain TECHNIQUE: Views obtained: Three views- AP lateral and swimmers views Comparison: None. RESULT: Findings: Moderate narrowing of the disc spaces throughout the thoracic spine. The vertebra are in good alignment. No fractures or dislocations are seen. IMPRESSION: Degenerative change as discussed Conduit Mechanic: ROSIE Transcribe Date/Time: Jul 11 2023 7:49A Dictated by : ANDREW PLASCENCIA DO This examination was interpreted and the report reviewed and electronically signed by: ANDREW PLASCENCIA DO on Jul 11 2023 7:49AM EST [id number] Normal [facility] XR Thoracic spine AP and Lat eralon 07-10-2023 [facility] MRI LUMBAR SPINE WO IVCONon 06-19-2023 [facility] Basophil percentageOrdered B y: Lonnie Fong on 05-03-2023 Chloride [Moles/Vol] 104 mmol/L 98-107 [facility] Cholesterol [Mass/Vol] 193 mg/dL <200 [facility] Comment on above: <200 mg/dL Desirable 200-240 mg/dL Borderline >240 mg/dL High Risk Glucose [Mass/Vol] 87 mg/dL 74-106 [facility] Potassium [Moles/Vol] 4.0 mmol/L 3.5-5.1 [facility] Sodium [Moles/Vol] 139 mmol/L 136-145 [facility] Triglyceride [Mass/Vol] 169 mg/dL <199 [facility] Comment on above: The drugs N-Acetylcy steine and Metamizole may falsely depress this assay.Serum Triglycerides Reference Interval Normal <150 mg/dL Borderline high 150 - 199 mg/dL High 200 - 499 mg/dL Very High > or = 500 mg/dL Laboratory - Chemistry and C hemistry - challengeOrdered By: Lonnie Fong on 05-03-2023 CO2 [Moles/Vol] 30.0 mmol/L 21.0-32.0 [facility] Urea nitrogen/Creatinine [Mass ratio] 12.1 mg/mg 10-20 [facility] No Panel InformationOrdered By: Lonnie Fong on 05-03-2023 Estimated GFR (MDRD) Amer 160 mL/min >60 [facility] Comment on above: GFR Calc Estimated GFR (MDRD) Non-Af Amer 132 mL/min >60 [facility] Comment on above: Non- GFR Calc Prostate Specific Antigen Screen 2.32 ng/mL 0.00-4.00 [facility] Comment on above: This test was perfor med using the TPSA assay method for theINPHI chemistry system. Values obtained with differentassay methods cannot be used interchangably.When changing PSA assays in the course of monitoring apatient, additional sequential testing should be carriedout to confirm baseline values. Serum or plasma calcium mima urement (mass/volume)Ordered By: Lonnie Fong on 05-03-2023 Calcium [Mass/Vol] 9.4 mg/dL 8.5-10.1 [facility] Serum or plasma cholesterol in HDL measurement (mass/volume)Ordered By: Lonnie Fong on 05-03-2023 Cholesterol in HDL [Mass/Vol] 39 mg/dL >40 [facility] Comment on above: The drugs N-Acetylcy steine and Metamizole may falsely depress this assay. Reference Range HDL <40 mg/dL Low HDL Cholesterol HDL >or= 60 mg/dL High HDL Cholesterol Serum or plasma cholesterol in VLDL measurement (mass/volume)Ordered By: Lonnie Fong on 05-03-2023 Cholesterol in VLDL [Mass/Vol] 34 mg/dL 5-40 [facility] Serum or plasma creatinine m easurement (mass/volume)Ordered By: Lonnie Fong on 05-03-2023 Creatinine [Mass/Vol] 0.66 mg/dL 0.70-1.30 [facility] Comment on above: The validity of the calculated GFR & GFRAA in patients over 70 years has not been determined. Clinical correlation is essential. Serum or plasma low density lipoprotein (LDL) cholesterol measurement (mass/volume)Ordered By: Lonnie Fong on 05-03-2023 Cholesterol in LDL [Mass/Vol] 120 mg/dL 0-130 [facility] Serum or plasma urea nitroge n measurement (mass/volume)Ordered By: Lonnie Fong on 05-03-2023 Urea nitrogen [Mass/Vol] 8 mg/dL 7-18 [facility] Thin prep Papanicolaou smear with manual screeningOrdered By: Lonnie Fong on 05-03-2023 Thin prep Papanicolaou smear with manual screening 5 5-15 [facility] Basophil percentageon 2021 Bilirubin [Mass/Vol] 0.50 mg/dL 0.20-1.00 [facility] Work Phone: Comment on above: For patients on eltr ombopag therapy, use of Dimension [place] TBIL is not recommended. Chloride [Moles/Vol] 104 mmol/L 98-107 [facility] Work Phone: Cholesterol [Mass/Vol] 192 mg/dL <200 [facility] Work Phone: Comment on above: <200 mg/dL Desirable 200-240 mg/dL Borderline >240 mg/dL High Risk Glucose [Mass/Vol] 93 mg/dL 74-106 [facility] Work Phone: Potassium [Moles/Vol] 4.0 mmol/L 3.5-5.1 [facility] Work Phone: Protein [Mass/Vol] 6.9 g/dL 6.4-8.2 [facility] Work Phone: Sodium [Moles/Vol] 138 mmol/L 136-145 [facility] Work Phone: Triglyceride [Mass/Vol] 134 mg/dL <199 [facility] Work Phone: Comment on above: The drugs N-Acetylcy steine and Metamizole may falsely depress this assay.Serum Triglycerides Reference Interval Normal <150 mg/dL Borderline high 150 - 199 mg/dL High 200 - 499 mg/dL Very High > or = 500 mg/dL Laboratory - Chemistry and C hemistry - challengeon 05-04-2022 ALP [Catalytic activity/Vol] 72 U/L 45-117 [facility] Work Phone: ALT [Catalytic activity/Vol] 30 U/L 16-61 [facility] Work Phone: [phone] CO2 [Moles/Vol] 31.0 mmol/L 21.0-32.0 [facility] Work Phone: [phone] Globulin (S) [Mass/Vol] 3.3 g/dL 2.2-4.2 [facility] Work Phone: [phone] Urea nitrogen/Creatinine [Mass ratio] 10.4 mg/mg 10-20 [facility] Work Phone: No Panel Informationon 05-04 Estimated GFR (MDRD) Amer 156 mL/min >60 [facility] Work Phone: Comment on above: GFR Calc Estimated GFR (MDRD) Non-Af Amer 129 mL/min >60 [facility] Work Phone: Comment on above: Non- GFR Calc Prostate Specific Antigen Screen 2.18 ng/mL 0.00-4.00 [facility] Work Phone: Comment on above: This test was perfor med using the TPSA assay method for the[employer] chemistry system. Values obtained with differentassay methods cannot be used interchangably.When changing PSA assays in the course of monitoring apatient, additional sequential testing should be carriedout to confirm baseline values. Serum or plasma albumin mima urement (mass/volume)on 05-04-2022 Albumin [Mass/Vol] 3.6 g/dL 3.2-5.0 [facility] Work Phone: [phone] Serum or plasma albumin/glob ulin mass ratioon 05-04-2022 Albumin/Globulin [Mass ratio] 1.1 {ratio} 0.9-2.4 [facility] Work Phone: [phone] Serum or plasma calcium mima urement (mass/volume)on 05-04-2022 Calcium [Mass/Vol] 8.8 mg/dL 8.5-10.1 [facility] Work Phone: Serum or plasma cholesterol in HDL measurement (mass/volume)on 05-04-2022 Cholesterol in HDL [Mass/Vol] 38 mg/dL >40 [facility] Work Phone: Comment on above: The drugs N-Acetylcy steine and Metamizole may falsely depress this assay. Reference Range HDL <40 mg/dL Low HDL Cholesterol HDL >or= 60 mg/dL High HDL Cholesterol Serum or plasma cholesterol in VLDL measurement (mass/volume)on 05-04-2022 Cholesterol in VLDL [Mass/Vol] 27 mg/dL 5-40 [facility] Work Phone: Serum or plasma creatinine m easurement (mass/volume)on 05-04-2022 Creatinine [Mass/Vol] 0.68 mg/dL 0.70-1.30 [facility] Work Phone: Comment on above: The validity of the calculated GFR & GFRAA in patients over 70 years has not been determined. Clinical correlation is essential. Serum or plasma low density lipoprotein (LDL) cholesterol measurement (mass/volume)on 05-04-2022 Cholesterol in LDL [Mass/Vol] 127 mg/dL 0-130 [facility] Work Phone: Serum or plasma urea nitroge n measurement (mass/volume)on 05-04-2022 Urea nitrogen [Mass/Vol] 7 mg/dL 7-18 [facility] Work Phone: Thin prep Papanicolaou smear with manual screeningon 05-04-2022 Thin prep Papanicolaou smear with manual screening 22 U/L 15-37 [facility] Work Phone: Thin prep Papanicolaou smear with manual screening 3 5-15 [facility] Work Phone: Office Visiton 10-19-2016 Documentation of current medications (procedure) Done Invalid Interpretation Code [facility] Work Phone: [phone] Fall risk assessment No Invalid Interpretation Code [facility] Work Phone: [phone] Office Visiton 05-17-2016 Tobacco use CP Never smoker Invalid Interpretation Code [facility] Work Phone: [phone] Replaced Document: Cholo Valdez CG Observationson 05-17-2016 electrocardiogram interpretation Sinus Rhythm WITHIN NORMAL LIMITS Invalid Interpretation Code [facility] Work Phone: [phone] GE use only - for [employer] import when terms are not otherwise specified 427 ms Invalid Interpretation Code [facility] Work Phone: [phone] P wave axis, electrocardiogram 41 deg Invalid Interpretation Code [facility] Work Phone: [phone] OH interval, electrocardiogram 158 ms Invalid Interpretation Code [facility] Work Phone: [phone] Pulse (Heart Rate) 64 /min Invalid Interpretation Code [facility] Phone: [phone] QRS axis, electrocardiogram 19 deg Invalid Interpretation Code [facility] Phone: [phone] QRS duration, electrocardiogram 114 ms Invalid Interpretation Code [facility] Work Phone: [phone] QT interval, electrocardiogram new path ms Invalid Interpretation Code [facility] Work Phone: [phone] T wave axis, electrocardiogram 55 deg Invalid Interpretation Code [facility] Phone: [phone] Clinical Lists Update: 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-02-2016 Left ventricular Ejection fraction 55 % Invalid Interpretation Code [facility] Phone: [phone] Clinical Lists Update: Pre 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 04-21-2016 Alanine aminotransferase (ALT) 17 U/L Invalid Interpretation Code [facility] Phone: [phone] Alkaline phosphatase (ALP) 69 U/L Invalid Interpretation Code [facility] Work Phone: [phone] Aspartate aminotransferase (AST) 17 U/L Invalid Interpretation Code [facility] Phone: [phone] Bilirubin (total) 0.8 mg/dL Invalid Interpretation Code [facility] Work Phone: [phone] Chloride 106 mmol/L Invalid Interpretation Code [facility] Work Phone: [phone] CO2 24 mmol/L Invalid Interpretation Code [facility] Work Phone: [phone] Creatinine 0.78 mg/dL Invalid Interpretation Code [facility] Work Phone: [phone] Hematocrit (HCT) 42.8 % Invalid Interpretation Code [facility] Work Phone: [phone] Hemoglobin (HGB) 14.2 g/dL Invalid Interpretation Code [facility] Work Phone: [phone] MCV 84.7 fL Invalid Interpretation Code [facility] Work Phone: [phone] Platelets 195 10*3/mm3 Invalid Interpretation Code [facility] Work Phone: [phone] Potassium 4.1 mmol/L Invalid Interpretation Code [facility] Work Phone: [phone] Sodium 138 mmol/L Invalid Interpretation Code [facility] Work Phone: [phone] Urea nitrogen 11 mg/dL Invalid Interpretation Code [facility] Work Phone: [phone] Clinical Lists Update: 04-18-2016 Cholesterol 227 mg/dL High [facility] Work Phone: [phone] HDL Cholesterol 36 mg/dL Low [facility] Work Phone: [phone] LDL Cholesterol 159 mg/dL High [facility] Work Phone: [phone] Triglyceride 159 mg/dL Invalid Interpretation Code [facility] Work Phone: [phone] very low density lipoproteins 32 mg/dL Invalid Interpretation Code [facility] Work Phone: [phone] Clinical Lists Update: 04-17-2016 Anion gap 5 mmol/L Invalid Interpretation Code [facility] Work Phone: [phone] BUN/Creatinine Ratio 12.3 mg/mg Invalid Interpretation Code [facility] Work Phone: [phone] Calcium 8.6 mg/dL Invalid Interpretation Code [facility] Work Phone: [phone] eGFR (non-black) 116 mL/min/{1.73_m2} Invalid Interpretation Code [facility] Work Phone: [phone] eGFR (non-black) 96 mL/min/{1.73_m2} Invalid Interpretation Code [facility] Work Phone: [phone] Erythrocytes (RBC) 5.29 10*6/uL Invalid Interpretation Code [facility] Work Phone: [phone] Glucose 111 mg/dL High [facility] Work Phone: [phone] Magnesium 2.2 mg/dL Invalid Interpretation Code [facility] Work Phone: [phone] MCH 28.4 pg Invalid Interpretation Code [facility] Work Phone: [phone] MCHC 33.3 g/dL Invalid Interpretation Code [facility] Work Phone: [phone] PMV by Zeynep 9.4 fL Invalid Interpretation Code [facility] Work Phone: [phone] RDW-CA 13.6 % Invalid Interpretation Code [facility] Work Phone: [phone] Thyroid stimulating hormone (TSH) 1.86 u[iU]/mL Invalid Interpretation Code [facility] Work Phone: [phone] WBC (Leukocytes) 8.8 10*3/uL Invalid Interpretation Code [facility] Work Phone: [phone] Vital Signs Date Time Vital Sign Value Performing Clinician Radha landin 09-19-2022 08:59-0400 Body temperature 98 [degF] Dr. Lonnie Fong Work Phone: [facility] 09-19-2022 08:59-0400 Diastolic blood pressure 79 mm[Hg] Dr. Lonnie Fong Work Phone: [facility] 09-19-2022 08:59-0400 Heart rate 67 /min Dr. Lonnie Fong Work Phone: [facility] 09-19-2022 08:59-0400 Respiratory rate 16 /min Dr. Lonnie Fong Work Phone: [facility] 09-19-2022 08:59-0400 SaO2% (BldA) [Mass fraction] 98 % Dr. Lonnie Fong Work Phone: [facility] 09-19-2022 08:59-0400 Systolic blood pressure 109 mm[Hg] Dr. Lonnie Fong Work Phone: [facility] 09-19-2022 07:59-0400 Body height 182.[address] Lonnie Fong Work Phone: [facility] 09-19-2022 07:59-0400 Body mass index (BMI) [Ratio] 33.5 kg/m2 Dr. Lonnie Fong Work Phone: [facility] 09-19-2022 07:59-0400 Body weight [address] Lonnie Fong Work Phone: [facility] 08-14-2022 13:05-0400 Body mass index (BMI) [Ratio] 33.2 kg/m2 Dr. Lonnie Fong Work Phone: [facility] 08-14-2022 13:05-0400 Body weight 111.[address] Lonnie Fong Work Phone: [facility] 12-05-2021 09:21-0400 Body height 182.9 cm Denise Reynaga BATCH UNLOADER.POSITION CLASSIFIER Work Phone: [facility] 12-05-2021 09:21-0400 Body weight 116.71 kg Denise Reynaga BATCH UNLOADER.POSITION CLASSIFIER Work Phone: [facility] 12-05-2021 09:21-0400 Heart rate 77 /min Denise Reynaga BATCH UNLOADER.POSITION CLASSIFIER Work Phone: [facility] 12-05-2021 09:21-0400 SaO2% (BldA) [Mass fraction] 97 % Denise Reynaga BATCH UNLOADER.POSITION CLASSIFIER Work Phone: [facility] 10-19-2016 15:56-0400 BMI (Body Mass Index) 36.34 kg/m2 MD [facility] Work Phone: 10-19-2016 15:56-0400 BP Diastolic 64 mm[Hg] MD [facility] Work Phone: 10-19-2016 15:56-0400 BP Systolic 120 mm[Hg] MD [facility] Work Phone: 10-19-2016 15:56-0400 Height 182.88 cm MD [facility] [employer] Work Phone: 10-19-2016 15:56-0400 Pulse (Heart Rate) 68 /min MD Juan F Bocanegra [facility] [employer] Work Phone: 10-19-2016 15:56-0400 Respiratory Rate 20 /min [facility] Work Phone: 10-19-2016 15:56-0400 Weight 121.56 kg [facility] [employer] Work Phone: 05-17-2016 13:41-0500 BSA (Body Surface Area) 2.41 m2 MD Juan F Bocanegra [facility] [employer] Work Phone: Encounters Encounter Date Encounter Type Care Provider Facility Start: 06-02-2024 End: 06-02-2024 ambulatory PALISADE Isidoro [facility] Facility:[facility] Start: 06-02-2024 End: 06-02-2024 Patient encounter procedure Ulisses Avitia MD Work Phone: Orthopaedics Comment on above: Primary osteoarthrit is of both knees (Primary Dx); Chronic pain of both knees Start: 05-09-2024 End: 05-09-2024 ambulatory [facility] Facility:[facility] Start: 05-01-2024 End: 05-01-2024 ambulatory [facility] Facility:[facility] Start: 04-29-2024 End: 04-29-2024 ambulatory [facility] Facility:[facility] Start: 04-21-2024 End: 04-21-2024 ambulatory [facility]ter [facility] Facility:[facility] Start: 04-07-2024 End: 04-07-2024 ambulatory [facility] Facility:[facility] Start: 03-31-2024 End: 03-31-[facility] Start: 03-14-2024 End: 03-14-2024 [facility] Start: 03-03-2024 End: 03-03-2024 ambulatory [facility] Facility:[facility] Start: 02-04-2024 End: 02-04-2024 ambulatory [facility] Start: 01-01-2024 End: 01-01-2024 ambulatory JORGE RODAS Facility:[facility] Start: 12-06-2023 End: 12-06-2023 Orders Only Jorge Rodas MD Work Phone: Pain Management Comment on above: Radiculopathy, lumba r region (Primary Dx); Displacement of lumbar intervertebral disc without myelopathy Start: 08-08-2023 End: 08-08-2023 ambulatory MAGDALENA [facility]AM Facility:[facility] Start: 08-08-2023 End: 08-08-2023 Patient encounter procedure Jorge Rodas MD Work Phone: Pain Management Comment on above: DDD (degenerative di sc disease), lumbar (Primary Dx); Displacement of lumbar intervertebral disc without myelopathy; Intervertebral disc stenosis of neural canal of lumbar region Start: 07-13-2023 Telephone encounter Jorge nettles MD Work Phone: Pain Management Comment on above: Results (Thoracic XR AY) Start: 07-12-2023 ambulatory Denise Garcia PRTho.POSITION CLASSIFIER Work Phone: Pain Management Comment on above: Thoracic XRay Start: 07-10-2023 End: 07-10-2023 Subsequent hospital visit by physician Xr [facility] Comment on above: Muscle pain [M79.10] Start: 07-10-2023 End: 07-10-[address] [facility] Facility:[facility] Start: 07-10-2023 End: 07-10-2023 Patient encounter procedure Denise Reynaga BATCH UNLOADER.POSITION CLASSIFIER Work Phone: Pain Management Comment on above: Muscle pain (Primary Dx); DDD (degenerative disc disease), thoracic; Radiculopathy, lumbar region; Intervertebral disc stenosis of neural canal of lumbar region Start: 06-22-2023 Orders Only Jorge Rodas MD Work Phone: Pain Management Comment on above: Radiculopathy, lumba r region (Primary Dx); Displacement of lumbar intervertebral disc without myelopathy; Intervertebral disc stenosis of neural canal of lumbar region; Spinal stenosis of lumbar region with neurogenic claudication Start: 06-20-2023 ambulatory Jorge Rodas MD Work Phone: Pain Management Comment on above: Results and Recommen dations Procedure Pasha ns Start: 06-20-2023 E-mail encounter juliet tadeo caregiver Jorge Rodas MD Work Phone: [facility] Start: 06-20-2023 Telephone encounter Jorge nettles MD Work Phone: Pain Management Comment on above: Results (Lumbar MRI) Start: 06-19-2023 End: 06-19-2023 Subsequent hospital visit by physician [facility] (I-Stat/1.5t) Work Phone: Radiology Comment on above: Spinal stenosis of l umbar region, unspecified whether neurogenic claudication present [M48.061] Start: 05-03-2023 End: 05-03-[address] [facility] Work Phone: Start: 05-03-2023 End: 05-03-[address] [facility] Start: 05-02-2023 End: 05-02-2023 ambulatory Tamela O'Arturo PT [facility] Comment on above: Muscle pain (Primary Dx) Start: 04-20-2023 End: 04-20-2023 ambulatory Aziza Jaffe EMPLOYEE DEVELOPMENT DIRECTOR Work Phone: [facility] Comment on above: Muscle pain (Primary Dx) Start: 04-17-2023 End: 04-17-2023 ambulatory Tamela O'Arturo PT [facility] Comment on above: Muscle pain (Primary Dx) Start: 04-13-2023 End: 04-13-2023 ambulatory Tamela O'Arturo PT [facility] Comment on above: Muscle pain (Primary Dx); Radiculopathy, lumbar region; Displacement of lumbar intervertebral disc without myelopathy; Intervertebral disc stenosis of neural canal of lumbar region Start: 04-09-2023 End: 04-09-2023 ambulatory Denise Reynaga APRN.CNP Work Phone: Pain Management Comment on above: Muscle pain (Primary Dx); Radiculopathy, lumbar region; Displacement of lumbar intervertebral disc without myelopathy; Intervertebral disc stenosis of neural canal of lumbar region; Spinal stenosis of lumbar region with neurogenic claudication Start: 04-09-2023 End: 04-09-2023 Telemedicine consultation with patient Denise Reynaga APRN.POSITION CLASSIFIER Work Phone: [facility] Start: 09-19-2022 Non-patient / Non-visit Dr. Favio Fong Work Phone: [facility] Start: 09-19-2022 End: 09-19-2022 Admission to same day surgery center Dr. Lonnie Fong Work Phone: [facility] Start: 09-19-2022 End: 09-19-[address] Lonnie Fong Work Phone: [facility] Work Phone: Start: 08-14-2022 Non-patient / Non-visit Dr. Favio Fong Work Phone: [facility] Start: 05-23-2022 End: 05-23-2022 ambulatory Denise Reynaga APRN.POSITION CLASSIFIER Work Phone: Pain Management Comment on above: DDD (degenerative di sc disease), lumbar (Primary Dx); Intervertebral disc stenosis of neural canal of lumbar region; Muscle pain Start: 05-23-2022 End: 05-23-2022 Telemedicine consultation with patient Denise Reynaga APRN.POSITION CLASSIFIER Work Phone: [facility] Start: 05-04-2022 End: 05-04-[address] [facility] Work Phone: Start: 05-04-2022 End: 05-04-[address] [facility] Start: 01-06-2022 Telephone encounter Jorge nettles MD Work Phone: Pain Management Comment on above: [employer] [facility] [employer] Start: 12-26-2021 Orders Only Jorge Rodas MD Work Phone: Pain Management Comment on above: DDD (degenerative di sc disease), lumbar (Primary Dx); Intervertebral disc stenosis of neural canal of lumbar region; Displacement of lumbar intervertebral disc without myelopathy; Radiculopathy, lumbar region Start: 12-05-2021 End: 12-05-2021 Patient encounter procedure Denise Reynaga APRN.POSITION CLASSIFIER Work Phone: Pain Management Comment on above: DDD (degenerative di sc disease), lumbar (Primary Dx); Intervertebral disc stenosis of neural canal of lumbar region; Displacement of lumbar intervertebral disc without myelopathy; Radiculopathy, lumbar region Procedures Date Procedure Procedure Detail Performing Clinician Start: 06-19-2023 Mri spinal canal lum bar w/o contrast material Denise Reynaga APRN.POSITION CLASSIFIER Work Phone: Start: 09-19-[address] Jim Fong Work Phone: Start: 05-17-2016 End: 05-17-2016 Electrocardiogram, complete Lex Urrutia MD Start: 05-17-2016 End: 05-17-2016 Follow Up Appt 6 months Kristel Solano Start: 05-17-2016 End: 05-17-2016 MMM Lex Urrutia MD Plan of Treatment Date Care Activity Detail Author Start: 04-25-2032 Urine microalbumin profile DTaP,Tdap,Td Vaccine (2 - Td or Tdap) [facility] Start: 01-13-2024 Influenza vaccination Influenza Vacc ine (#1) [facility] Start: 01-01-2024 End: 01-01-2024 Admission to same day surgery center 01/01/2024 9:15 AM EDT - 01/01/2024 9:41 AM EDT Surgery [facility] Surgery [address] [place] [address] Jorge Rodas MD [id number] [place] [address] INJECTION(S) ANESTHETIC AGENT AND STEROID TRANSFORAMINAL EPIDURAL W/ IMAGING GUIDANCE LUMBAR [facility] Surgery Comment on above: INJECTION(S) ANESTHE TIC AGENT AND STEROID TRANSFORAMINAL EPIDURAL W/ IMAGING GUIDANCE LUMBAR Start: 01-01-2024 End: 01-01-2024 Njx anes&/strd w/img tfrml edrl lmbr/sac 1 lvl INJECTION(S) ANESTHETIC AGENT AND STEROID TRANSFORAMINAL EPIDURAL W/ IMAGING GUIDANCE LUMBAR Radiculopathy, lumbar region Displacement of lumbar intervertebral disc without myelopathy 01/01/2024 9:15 AM EDT [facility] Start: 01-01-2024 Subsequent hospital visit by physician 01/01/2024 9:15 AM EDT Hospital Encounter [facility] Surgery [address] [place] [address] Jorge Rodas MD [address] [id number] [place] [address] Radiculopathy, lumbar region [M54.16] [facility] Surgery Comment on above: Radiculopathy, lumba r region [M54.16] Start: 05-14-2023 Depression Assessment Depression Ass essment [facility] Start: 09-19-2022 Patient discharge [facility] Start: 05-14-2022 DEPRESSION ASSESSMENT DEPRESSION ASS ESSMENT [facility] Start: 01-12-2022 Influenza vaccination INFLUENZA (#1) [facility] Start: 2021 PROSTATE CANCER SCREENING DISCUSSION PROSTATE CANCER SCREENING DISCUSSION [facility] Start: 2021 Prostate specific antigen measurement Prostate Cancer Screening Discussion [facility] Start: 05-02-2017 End: 05-02-2017 Appointment Appointment [facility] Work Phone: Start: 10-19-2016 End: 10-19-2016 DENSITY CONTROL PUNCHER DENSITY CONTROL PUNCHER [facility] Work Phone: Start: 10-19-2016 End: 10-19-2016 Follow Up Appt 6 months Follow Up Appt 6 months [facility] Work Phone: Start: 05-17-2016 End: 05-17-2016 Electrocardiogram, complete EKG (In office) [facility] Work Phone: Start: 05-17-2016 End: 05-17-2016 Follow Up Appt 6 months Follow Up Appt 6 months [facility] Work Phone: Start: 05-17-2016 End: 05-17-2016 MMM MMM [facility] Work Phone: Start: 02-29-2016 Pneumococcal Vaccine : 50+ (1 of 1 - PCV) Pneumococcal Vaccine: 50+ (1 of 1 - PCV) [facility] Start: 02-29-2016 SHINGRIX VACCINE (1 of 2) SHINGRIX VACCINE (1 of 2) [facility] Start: 2011 COLOGUARD (FIT-DNA) COLOGUARD (FIT-D NA) [facility] Start: 2011 Colonoscopy COLONOSCOPY [facility] Start: 2011 COLORECTAL CANCER SCREENING COLORECTAL CANCER SCREENING [facility] Start: [address] COLONOGRAPHY [facility] Start: 2011 DIABETES SCREEN DIABETES SCREEN [facility] Start: 2011 Diabetes Screening Diabetes Screenin g [facility] Start: 2011 FECAL OCCULT BLOOD FECAL OCCULT BLOO D [facility] Start: 2011 Screening for malign ant neoplasm of colon [facility] Start: 2011 SIGMOIDOSCOPY SIGMOIDOSCOPY [facility] Start: 2001 Lipid 1996 panel - S sg or Plasma Lipid Screening [facility] Start: 2001 Lipid panel Lipid Screening [facility] Start: 2001 LIPID SCREEN LIPID SCREEN [facility] Start: 1985 Hepatitis B Vaccine (1 of 3 - 19+ 3-dose series) Hepatitis B Vaccine (1 of 3 - 19+ 3-dose series) [facility] Start: 1985 Urine microalbumin profile DTAP,TDAP,TD (1 - Tdap) [facility] Start: 02-29-1984 Anxiety Screening Anxiety Screening [facility] Start: 02-29-1984 [facility] [facility] Start: 02-29-1984 HEPATITIS C SCREENING HEPATITIS C [facility] Start: 02-29-1984 Hepatitis C screening Hepatitis C [facility] Start: 02-29-1984 HIV SCREENING HIV SCREENING [facility] Start: 02-29-1984 HIV screening HIV Screening [facility] Start: 1978 Adult depression screening assessment DEPRESSION SCREENING [facility] Start: 1965 HEPATITIS B (1 of 3 - 3-dose series) HEPATITIS B (1 of 3 - 3-dose series) [facility] Start: 1965 Hepatitis B Vaccine (1 of 3 - 3-dose series) Hepatitis B Vaccine (1 of 3 - 3-dose series) [facility] Colonoscopy [facility] End: 05-08-2024 Mri spinal canal lumbar w/o contrast material MRI LUMBAR SPINE WO [facility] Radiology Routine Spinal stenosis of lumbar region with neurogenic claudication 1 Occurrences starting 04/09/2023 until 05/08/2024 [facility] Work Phone: Comment on above: 1 Occurrences starti ng 04/09/2023 until 05/08/2024 Njx anes&/strd w/img tfrml edrl lmbr/sac 1 lvl INJ TRANSFORAMINAL EPID ANES/STER LS SINGL Procedures Routine Intervertebral disc stenosis of neural canal of lumbar region Radiculopathy, lumbar region Ordered: 12/05/2021 [facility] Work Phone: Comment on above: Ordered: 12/05/2021 Njx anes&/strd w/img tfrml edrl lmbr/sac 1 lvl INJ TRANSFORAMINAL EPID ANES/STER LS SINGL Procedures Routine Radiculopathy, lumbar region Displacement of lumbar intervertebral disc without myelopathy Intervertebral disc stenosis of neural canal of lumbar region Spinal stenosis of lumbar region with neurogenic claudication Ordered: 06/21/2023 [facility] Work Phone: Comment on above: Ordered: 06/21/2023 Njx anes&/strd w/img tfrml edrl lmbr/sac 1 lvl INJ TRANSFORAMINAL EPID ANES/STER LS SINGL Procedures Routine Radiculopathy, lumbar region Displacement of lumbar intervertebral disc without myelopathy Ordered: 12/06/2023 [facility] Work Phone: Comment on above: Ordered: 12/06/2023 Patient referral [facility] Work Phone: XR Thoracic spine AP and Lateral XR THORACIC LIMITED 2V AP/LAT Radiology Routine Muscle pain DDD (degenerative disc disease), thoracic 07/10/2023 11:21 AM EST [facility] Work Phone: [facility] Immunizations Immunization Date Immunization Notes Care Provider [facility] 02-24-2023 influenza virus vaccine, unspecified formulation Jorge Rodas MD Work Phone: [facility] 08-20-2020 Covid (Pfizer) [facility] 07-30-2020 Covid (Pfizer) [facility] 04-18-2016 influenza, injectabl e, quadrivalent, preservative free [facility] 04-18-2016 influenza, seasonal, injectable [facility] Payers Date Payer Category Payer Self-pay [id number] 2020 [employer] BLUE CARD PPO OOS [id number] 2020 Unknown [employer] BLUE CARD PPO OOS [id number] 2020-Present [phone] [place] [id number] PPO [id number] 2020 Unknown [employer] BLUE CARD PPO OOS [id number] 2020-Present [phone] [place] [id number] PPO [id number] 2016 Unknown [id number] Unknown [id number] Unknown [id number] Unknown [id number] Unknown [id number] [id number] Unknown [id number] [id number] Unknown [id number] [id number] Unknown [id number] [id number] Unknown [id number] [id number] Unknown [id number] [id number] Unknown [id number] [id number] Unknown [id number] [id number] Unknown [id number] Social History Date Type Detail Facility Start: 07-20-2021 End: 12-05-2021 Tobacco smoking status NHIS Never smoked tobacco [facility] Start: 07-20-2021 End: 12-05-2021 Tobacco use and exposure Smokeless tobacco non-user [facility] Start: 12-05-2021 End: 06-23-2024 Alcohol intake Current drinker of alcohol (finding) [facility] Start: 07-20-2021 History SDOH Alcohol Comment 12-15 beers per week [facility] Start: 1965 Sex Assigned At Not on file [facility] Start: 11-25-2021 End: 12-05-2021 Exposure to SARS-CoV-2 (event) Not sure [facility] Start: 04-20-2021 End: 09-19-2022 Tobacco smoking status NHIS Unknown if ever smoked [facility] Start: 1965 Sex Assigned At Male [facility] Start: 12-05-2021 End: 03-06-2023 History of Social function [facility] Start: 12-05-2021 End: 03-06-2023 Tobacco use panel [facility] National Score (1-10 0), lower number is lower risk 35 [facility] Start: 07-16-2023 Gender identity Identifies as male gender (finding) [facility] Start: 07-16-2023 Sexual orientation Heterosexual (fin ding) [facility] Goals Date Patient Goal Desired Activity /State Mental Status Date Assessment Result Facility 09-19-2022 Cognitive function Voice/Name [facility] Work Phone: Clinical Notes 12-04-2021 to 06-02-2024 Ulisses Avitia MD - 06/02/2024 9:00 AM Denise Chandra, BATCH UNLOADER.POSITION CLASSIFIER - 12/06/2023 2:29 PM Jorge Arellano MD - 08/08/2023 9:08 AM EDTTelephone Encounter - Gus Pennington RN - 07/13/2023 1:38 PM EST Note Date & Type Note Facility 06-02-2024 Note HNO ID: [id number] Author: ULISSES AVITIA MD Service: ? Author Type: Physician Type: Progress Notes Filed: 06/23/2024 12:40 Note Text: Ulisses Avitia MD Department of Orthopaedics Orthopaedics [address] [facility] [address] Dept: [phone] Dept June 02, 2024 CHIEF COMPLAINT: New and Knee Pain of the Right Knee and New and Knee Pain of the Left Knee HPI Patient here for evaluation bilateral knee pain. Patient states he is having pain on the medial aspect and in his knee cap area. On his right knee yesterday he was having a cracking noise. He did have a knee arthroscopy on his right knee in 1986 for a meniscus tear and tore his ACL partially. In January he twisted his right knee while moving some seats in his car. At times he does have difficulty going up and down steps. States his right knee is stiff today. Patient hand carried copies of his x-rays done at [facility]. Taking Ibuprofen for the pain and helps take the edge off. Last fall he was on Etolodac for his shoulder and felt it did help his knee pain. ASSESSMENT: M17.0 Primary osteoarthritis of both knees (primary encounter diagnosis) M25.561, M25.562, G89.29 Chronic pain of both knees PLAN: We had a lengthy discussion about the nonoperative treatment for knee osteoarthritis. Strengthening, NSAIDs, bracing, injection treatments. FOLLOW UP INSTRUCTIONS: As needed OBJECTIVE: Mr. Garrett Maddox is a pleasant 59 year old in no apparent distress. Gen:There were no vitals taken for this visit. nl development, non obese, no deformities ENT: Normocephalic, normal hearing, moist mucosa CV: Pulses:DP/PT= 2+ and symmetric, capillary refill < 2 secs, no peripheral edema/varicosities Skin: no rash, bruising or lesions. Good turgor. Psych: cooperative and appropriate, alert and oriented x 3, good mood and affect. Musculoskeletal: Patient walks without antalgia, normal station. Mild clinical varus of both knees. Hip motion without pain. Knee with scant, bilateral effusion. Patella tracks normally. There is mild patellar crepitance, each. No pain along the medial or lateral facets. Range of motion 0-125 degrees. Positive medial, without lateral joint line pain on palpation. Ligamentous exam stable on varus and valgus stress testing at 0 and 30 degrees there is some medial joint space widening of each knee and valgus stress consistent with a little bit of ligamentous laxity on his varus alignment. Extremity is warm and well perfused. Sensation is grossly intact to light touch, subjectively. IMAGIN views of each knee, weightbearing show tricompartmental, moderate arthritis. Supporting Subjective Information Below: Past Medical History: History reviewed. No pertinent past medical history. Past Surgical History: PAST SURGICAL HISTORY Procedure Laterality Date ARTHRS KNE SURG W/MENISCECTOMY MED/LAT W/SHVG Right 1986 Right knee arthroscopic HYDROCELE RIGHT, FLUID Right 1996 Right testicle PAST SURGICAL HISTORY OF 1985 Jaw fracture TONSILLECTOMY AND ADENOIDECTOMY Family History: FAMILY HISTORY Problem Relation Age of Onset Breast Cancer Mother Prostate Cancer Father Social History: Social History Tobacco Use Smoking status: Never Smokeless tobacco: Never Vaping Use Vaping status: Never Used Substance Use Topics Alcohol use: Yes Comment: 12-15 beers per week Drug use: Never Medications: Current Outpatient Medications Medication Sig multivitamin tablet Take 1 tablet by mouth once daily. No current facility-administered medications for this visit. Allergies: Penicillins and Kiwi ROS: General (negative for fatigue, malaise, weight loss/gain) HEENT (negative for headache, earache, recent vision changes, sinus pain, sore throat) Respiratory (no recent shortness of breath, hemoptysis) CV (negative for chest tightness, palpitations) Musculoskeletal (see HPI) Psych (no depression, anxiety) REFERRING PHYSICIAN: Consultation requested by Dr. Fong for an opinion regarding knee pain. My final recommendations will be communicated back to the requesting physician by way of shared Medical record or letter to requesting physician via [place] mail. Magdalena Fong MD [address] [facility] [address] Ulisses Avitia MD [facility] 06-02-2024 History of Presen t illness Narrative Ulisses Avitia MD Department of Orthopaedics Orthopaedics [address] [facility] [address] Dept: [phone] Dept June 02, 2024 CHIEF COMPLAINT: New and Knee Pain of the Right Knee and New and Knee Pain of the Left Knee HPI Patient here for evaluation bilateral knee pain. Patient states he is having pain on the medial aspect and in his knee cap area. On his right knee yesterday he was having a cracking noise. He did have a knee arthroscopy on his right knee in 1986 for a meniscus tear and tore his ACL partially. In January he twisted his right knee while moving some seats in his car. At times he does have difficulty going up and down steps. States his right knee is stiff today. Patient hand carried copies of his x-rays done at [facility]. Taking Ibuprofen for the pain and helps take the edge off. Last fall he was on Etolodac for his shoulder and felt it did help his knee pain. ASSESSMENT: M17.0 Primary osteoarthritis of both knees (primary encounter diagnosis) M25.561, M25.562, G89.29 Chronic pain of both knees PLAN: We had a lengthy discussion about the nonoperative treatment for knee osteoarthritis. Strengthening, NSAIDs, bracing, injection treatments. FOLLOW UP INSTRUCTIONS: As needed OBJECTIVE: Mr. Garrett Maddox is a pleasant 59 year old in no apparent distress. Gen:There were no vitals taken for this visit. nl development, non obese, no deformities ENT: Normocephalic, normal hearing, moist mucosa CV: Pulses:DP/PT= 2+ and symmetric, capillary refill < 2 secs, no peripheral edema/varicosities Skin: no rash, bruising or lesions. Good turgor. Psych: cooperative and appropriate, alert and oriented x 3, good mood and affect. Musculoskeletal: Patient walks without antalgia, normal station. Mild clinical varus of both knees. Hip motion without pain. Knee with scant, bilateral effusion. Patella tracks normally. There is mild patellar crepitance, each. No pain along the medial or lateral facets. Range of motion 0-125 degrees. Positive medial, without lateral joint line pain on palpation. Ligamentous exam stable on varus and valgus stress testing at 0 and 30 degrees there is some medial joint space widening of each knee and valgus stress consistent with a little bit of ligamentous laxity on his varus alignment. Extremity is warm and well perfused. Sensation is grossly intact to light touch, subjectively. IMAGIN views of each knee, weightbearing show tricompartmental, moderate arthritis. Supporting Subjective Information Below: Past Medical History: History reviewed. No pertinent past medical history. Past Surgical History: PAST SURGICAL HISTORY Procedure Laterality Date ARTHRS KNE SURG W/MENISCECTOMY MED/LAT W/SHVG Right 1986 Right knee arthroscopic HYDROCELE RIGHT, FLUID Right 1996 Right testicle PAST SURGICAL HISTORY OF 1985 Jaw fracture TONSILLECTOMY & ADENOIDECTOMY <AGE 13 1987 Family History: FAMILY HISTORY Problem Relation Age of Onset Breast Cancer Mother Prostate Cancer Father Social History: Social History Tobacco Use Smoking status: Never Smokeless tobacco: Never Vaping Use Vaping status: Never Used Substance Use Topics Alcohol use: Yes Comment: 12-15 beers per week Drug use: Never Medications: Current Outpatient Medications Medication Sig multivitamin tablet Take 1 tablet by mouth once daily. No current facility-administered medications for this visit. Allergies: Penicillins and Kiwi ROS: General (negative for fatigue, malaise, weight loss/gain) HEENT (negative for headache, earache, recent vision changes, sinus pain, sore throat) Respiratory (no recent shortness of breath, hemoptysis) CV (negative for chest tightness, palpitations) Musculoskeletal (see HPI) Psych (no depression, anxiety) REFERRING PHYSICIAN: Consultation requested by Dr. Fong for an opinion regarding knee pain. My final recommendations will be communicated back to the requesting physician by way of shared Medical record or letter to requesting physician via [place] mail. Magdalena Fong MD [address] [place] [id number] Ulisses Avitia MD documented in this encounter [facility] 12-06-2023 Note HNO ID: [id number] Author: DENISE REYNAGA APRN.POSITION CLASSIFIER Service: ? Author Type: Nurse Practitioner Type: Progress Notes Filed: 12/06/2023 18:50 Note Text: Subjective Garrett Maddox presents to [facility] for a follow up appointment. Since the last visit, Garrett Maddox states the pain has been persistent. Current pain intensity is 2 on a scale of 0-10. Pain located in left lumbar region and gluteal region and radiates to the left lower extremity along the posterior aspect to the level of the posterior thigh. Pain described as pinching. Symptoms interfere with walking. Pain is exacerbated by walking, lifting, bending, sitting and standing too long. Pain is mitigated by lumbar extensions. Patient Entered Questionnaires PROMIS Score Percentiles 04/30/2023 08/07/2023 12/05/2023 PROMIS Global Health Scale Physical Health Percentile 22* 22* 31 41 Mental Health Percentile 26* 26* 19* 19* 04/08/2023 08/07/2023 12/05/2023 Physical Health Physical Function Percentile 7 14 21* Pain Interference Percentile 18* 31 21* Percentiles provide an indication of how the patient's score ranks in relation to the general population. Higher percentile rankings indicate better function/quality of life. 50th percentile is the average of the general population and indicates half of respondents had a worse score. > 31st percentile is within normal limits or better * < 31st percentile is at least ? SD worse than population, which may be clinically relevant < 16th percentile is at least 1 SD worse than population and warrants attention Review of Systems Constitutional: (-) Weight Gain (-) Weight Loss (-) Fatigue Cardiovascular: (-) hx heart surgery (-) Pacemaker Respiratory: (-) Shortness of Breath (-) Cough (-) Snoring Gastrointestinal: (-) Incontinence (-) Diarrhea (-) Constipation (-) Nausea/Vomiting Endocrine: (-) Thyroid Disorder (-) Diabetes Hematologic: (-) Prolonged Bleeding (-) Easy Bruising Genitourinary: (-) Incontinence (-) Frequency (-) Urinary Urgency Skin: (-) Open sores/wound Neurologic: (-) Headache (-) Double Vision Psychiatric: (-) Depression (-) Anxiety (-) Personal History of Alcohol or Substance Abuse (-) Family History of Alcohol or Substance Abuse Chief Complaint Patient presents with: Back Pain Physical Examination There were no vitals taken for this visit. General:well appearing and alert Skin: Skin color, texture, turgor normal, no rashes or lesions HEENT: normal Cardiovascular: Regular, rate and rhythm Lungs: Normal respiratory rate and rhythm, unlabored on room air Musculoskeletal: Back: Tenderness on palpation over the lumbar spine. , Tenderness over the left lumbar paraspinal muscles, ROM intact Extremities: Extremities normal. No deformities, edema, or skin discoloration Neurological: Mental Status: alert Gait: Normal. Trigger points: lumbosacral spine muscles. Assessment Assessment : Patient presents for a follow up He has chronic low back pain that radiates into the bottom of the left buttock He completed PT and continues his exercises and core strengthen Dr. Rodas previously discussed a left L5-S1 TFESI. Patient would like to proceed with injection Encounter Diagnosis ICD-10-CM 1. Radiculopathy, lumbar region M54.16 INJ TRANSFORAMINAL EPID ANES/STER LS SINGL 2. Displacement of lumbar intervertebral disc without myelopathy M51.26 INJ TRANSFORAMINAL EPID ANES/STER LS SINGL PROMIS-10 Global Health In general, would you say your health is:: Good In general, would you say your quality of life is:: Good In general, how would you rate your physical health?: Good In general, how would you rate your mental health, including your mood and your ability to think?: (!) Fair In general, how would you rate your satisfaction with your social activities and relationships?: Good In general, please rate how well you carry out your usual social activities and roles. (This includes activities at home, at work and in your community, and responsibilities as a parent, child, spouse, employee, friend, etc.): Good To what extent are you able to carry out your everyday physical activities such as walking, climbing stairs, carrying groceries, or moving a chair?: (!) Mostly In the past 7 days, how often have you been bothered by emotional problems such as feeling anxious, depressed or irritable?: (!) Sometimes In the past 7 days, how would you rate your fatigue on average?: Mild In the past 7 days, how would you rate your pain on average?: 2 PROMIS-10 physical raw score: 15 Global Physical Health Raw Score: 15 PROMIS-10 physical T score: 47.7 Global Physical Health T Score: 47.7 PROMIS-10 Physical Health Percentile: 41 Global Physical Health Percentile: 41 PROMIS-10 mental raw score: 11 Global Mental Health Raw Score: 11 PROMIS-10 mental T s (more content not included)... [facility] 12-06-2023 History of Presen t illness Narrative Images from the original note were not included. Subjective [facility] up [facility]. Since the last visit, Garrett Maddox states the pain has been persistent. Current pain intensity is 2 on a scale of 0-10. Pain located in left lumbar region and gluteal region and radiates to the left lower extremity along the posterior aspect to the level of the posterior thigh. Pain described as pinching. Symptoms interfere with walking. Pain is exacerbated by walking, lifting, bending, sitting and standing too long. Pain is mitigated by lumbar extensions. Patient Entered Questionnaires PROMIS Score Percentiles 04/30/2023 08/07/2023 12/05/2023 PROMIS Global Health Scale Physical Health Percentile 22* 22* 31 41 Mental Health Percentile 26* 26* 19* 19* 04/08/2023 08/07/2023 12/05/2023 Physical Health Physical Function Percentile 7 14 21* Pain Interference Percentile 18* 31 21* Percentiles provide an indication of how the patient's score ranks in relation to the general population. Higher percentile rankings indicate better function/quality of life. 50th percentile is the average of the general population and indicates half of respondents had a worse score. > 31st percentile is within normal limits or better * < 31st percentile is at least SD worse than population, which may be clinically relevant < 16th percentile is at least 1 SD worse than population and warrants attention Review of Systems Constitutional: (-) Weight Gain (-) Weight Loss (-) Fatigue Cardiovascular: (-) hx heart surgery (-) Pacemaker Respiratory: (-) Shortness of Breath (-) Cough (-) Snoring Gastrointestinal: (-) Incontinence (-) Diarrhea (-) Constipation (-) Nausea/Vomiting Endocrine: (-) Thyroid Disorder (-) Diabetes Hematologic: (-) Prolonged Bleeding (-) Easy Bruising Genitourinary: (-) Incontinence (-) Frequency (-) Urinary Urgency Skin: (-) Open sores/wound Neurologic: (-) Headache (-) Double Vision Psychiatric: (-) Depression (-) Anxiety (-) Personal History of Alcohol or Substance Abuse (-) Family History of Alcohol or Substance Abuse Chief Complaint Patient presents with: Back Pain Physical Examination There were no vitals taken for this visit. General:well appearing and alert Skin: Skin color, texture, turgor normal, no rashes or lesions HEENT: normal Cardiovascular: Regular, rate and rhythm Lungs: Normal respiratory rate and rhythm, unlabored on room air Musculoskeletal: Back: Tenderness on palpation over the lumbar spine. , Tenderness over the left lumbar paraspinal muscles, ROM intact Extremities: Extremities normal. No deformities, edema, or skin discoloration Neurological: Mental Status: alert Gait: Normal. Trigger points: lumbosacral spine muscles. Assessment Assessment : Patient presents for a follow up He has chronic low back pain that radiates into the bottom of the left buttock He completed PT and continues his exercises and core strengthen Dr. Rodas previously discussed a left L5-S1 TFESI. Patient would like to proceed with injection Encounter Diagnosis ICD-10-CM 1. Radiculopathy, lumbar region M54.16 INJ TRANSFORAMINAL EPID ANES/STER LS SINGL 2. Displacement of lumbar intervertebral disc without myelopathy M51.26 INJ TRANSFORAMINAL EPID ANES/STER LS SINGL PROMIS-10 Global Health In general, would you say your health is:: Good In general, would you say your quality of life is:: Good In general, how would you rate your physical health?: Good In general, how would you rate your mental health, including your mood and your ability to think?: (!) Fair In general, how would you rate your satisfaction with your social activities and relationships?: Good In general, please rate how well you carry out your usual social activities and roles. (This includes activities at home, at work and in your community, and responsibilities as a parent, child, spouse, employee, friend, etc.): Good To what extent are you able to carry out your everyday physical activities such as walking, climbing stairs, carrying groceries, or moving a chair?: (!) Mostly In the past 7 days, how often have you been bothered by emotional problems such as feeling anxious, depressed or irritable?: (!) Sometimes In the past 7 days, how would you rate your fatigue on average?: Mild In the past 7 days, how would you rate your pain on average?: 2 PROMIS-10 physical raw score: 15 Global Physical Health Raw Score: 15 PROMIS-10 physical T score: 47.7 Global Physical Health T Score: 47.7 PROMIS-10 Physical Health Percentile: 41 Global Physical Health Percentile: 41 PROMIS-10 mental raw score: 11 Global Mental Health Raw Score: 11 PROMIS-10 mental T score: 41.1 Global Mental Health T Score: 41.1 PROMIS-10 Mental Health Percentile: 19 Global Mental Health Percentile: 19 PROMIS-10 pain score: 4 0-10 Standard Pain Scale: 4 (12/05/23 1618 : User, [employer]) 12/05/2023 PROMIS CAT Pain Interference PROMIS Pain Interference T-Score (range: 10 - 90) 58 (mild) PROMIS Pain Interference Percentile 21 PROMIS Adult Short Form-Global Health Score (Mental) 41.1 (Good) Descriptive Summary for PROMIS Physical Function T-score = 42 (Percentile 21) Much difficulty - Do 2 hours of physical labor. Some difficulty - Walk more than a mile (1.6 km). OARRS Report: Reviewed: The patient's OARRS report was reviewed and is consistent with the reported medication use. Plan Injection history was reviewed. Medication use and compliance were reviewed. 1. Reviewed procedural instructions. Handout given 2. No meds prescribed today 3. Interventional procedure options discussed. Ordered and scheduled left L5-S1 TFESI 4. Continue regular home exercise program. 5) F/U in 6 weeks The level of medical decision making for this encounter was low level. I spent a total of 25 minutes on the date of the service which included preparing to see the patient, [id number] patient care, completing clinical documentation, performing a medically appropriate examination, ordering medications, tests, or procedures, and care coordination (not separately reported). 1. This document has been created with the use of voice recognition technology. It may contain inaccuracies: (e.g. misspellings, inaccurate syntax or word sense) that have escaped review. 2. The physician, nursing staff and medical assistants are a major part of YOUR TREATMENT TEAM and will be handling your phone calls and inquiries, if any. Unless explicitly told otherwise at the time of your office visit, your study results and ensuing treatment plans will be discussed during your follow-up appointment. If you do not have a follow-up appointment and wish to discuss any issues, please set up an appointment. 3. It is my practice to not fill disability or any other insurance-related forms/documentation. All of the office notes, study results, and other pertinent documentation generated as part of your evaluation will be available to you and to your Primary Care Physician (PCP). Use of this material to complete such forms will be at the discretion of your PCP/referring physician. The above plan and management options were discussed at length with patient. Patient is in agreement with the above and verbalized understanding. Denise Reynaga APRN, MYA December 06, 2023 documented in this encounter [facility] 08-08-2023 Note HNO ID: [id number] Author: JORGE RODAS MD Service: ? Author Type: Physician Type: Progress Notes Filed: 08/08/2023 10:49 Note Text: [facility] Date: August 08, 2023 - 9:09 AM Chief Complaint: lower back pain SUBJECTIVE: Mr. Maddox presents to the [facility] for a follow up appointment regarding chronic lower back pain. He states that since the last visit symptoms have been persistent. The pain is located in the left lumbar region and gluteal region and radiates to the left lower extremity along the posterior aspect to the level of the posterior thigh. // The pain is described as dull and tightness and is rated as 2 on a scale of 0-10. Symptoms interfere with walking. The pain is exacerbated by lifting, bending, sitting, and standing for too long. The pain is mitigated by lumbar extensions.. He is currently receiving medications through the [facility]. He is not having difficulty with his PMC medications. The medications are ineffective. REVIEW OF SYSTEMS: Constitutional: (-) Fever (-) Night Sweats (-) Weight Gain (-) Weight Loss (-) Fatigue Cardiovascular: (-) Chest Pain (-) Palpitations (-) Lightheadedness (-) Swelling of Ankles (-) Hx Heart Surgery Respiratory: (-) Shortness of Breath (-) Cough (-) Wheezing (+) Snoring Gastrointestinal: (-) Incontinence (-) Abdominal Pain (-) Diarrhea (-) Constipation (-) Nausea/Vomiting (-) Heart Burn Endocrine: (-) Thyroid Disorder (-) Diabetes Hematologic: (-) Prolonged Bleeding (-) Easy Bruising Genitourinary: (-) Incontinence (-) Frequency (-) Urinary Urgency Skin: (-) Rashes (-) Itching (-) Other Lesions Neurologic: (-) Headache (-) Double Vision (-) Confusion (-) Paralysis Psychiatric: (-) Depression (+) Anxiety (-) Delusions (-) Hallucinations (-) Personal History of Alcohol or Substance Abuse (-) Family History of Alcohol or Substance Abuse No past medical history on file. No past surgical history on file. ALLERGIES Allergen Reactions Penicillins Rash Current Outpatient Medications Medication Sig tiZANidine (ZANAFLEX) 4 mg tablet Take 1 tablet by mouth three times a day as needed. multivitamin tablet Take 1 tablet by mouth once daily. No current facility-administered medications for this visit. I have reviewed the nurses notes and I am aware of the family/social history. Since the last evaluation the medical history has not changed. PDMP website checked and validated. All prescriptions have been APPROPRIATELY filled. No suspicious activity was identified. 08/08/2023 by Jorge Rodas MD Narcotic Agreement reviewed and signed?: N/A on August 08, 2023 Urine Panel: No results found for: UQCANN, UQBNZL, LPY2KVZ, UQAMPH, UQMAMP, UQBUPRE, UQNORBUP, UQMTHD, UQEDDP, UQTRAM, UQDTRM, UQFNTL, UQNFTL, UQCODE, UQMORP, UQDCDN, UQHCOD, UQOXYC, UQHMOR, UQOXYM, UQCREA, UQPH, UQSPGR, UQOXID, UQSPQ The pain panel was N/A PHYSICAL EXAMINATION: Performed in conjunction with observation. The patient was alert and oriented x3. The patient was in no acute distress. Lungs: Clear, negative for dyspnea or distress. CVR: Regular Rate. Negative for SOB or peripheral edema. Neck: Supple. The range of motion was intact. Negative focal tenderness Back: Range of motion of the trunk was intact.. Left paralumbar tenderness extends to the gluteal region. SLR: Negative Facet Loading: Equivocal with axial loading and extension. SI joint: Negative PSIS tenderness. Extremities: no reported edema or erythema. Motor: Negative focal deficits Gait: Within normal limits ASSESSMENT: Ddd (degenerative disc disease), lumbar (primary encounter diagnosis) Displacement of lumbar intervertebral disc without myelopathy Intervertebral disc stenosis of neural canal of lumbar region PLAN: Prior available imaging studies were reviewed. Findings were discussed. Injection history was reviewed. Medication use and compliance were reviewed. 1. Most recent MRI of the lumbar spine was reviewed with the patient. The patient has foraminal narrowing at L4-5 level worse on the left side and left-sided disc displacement L5-S1. When comparing to 2020 MRI films there has not been a significant change. The patient improved with physical therapy. Recommend conservative course. Recommend continuing home physical therapy program. 2. Interventional procedure options discussed. None at this time 3. No new medication was prescribed. 4. Encouraged regular home exercise program. 5) F/U as needed basis The treatment plan was discussed with the patient during the office visit and they verbalized an understanding of it. I have discussed and confirmed the above treatment p (more content not included)... [facility] 08-08-2023 History of Presen t illness Narrative [facility] Date: August 08, 2023 - 9:09 AM Chief Complaint: lower back pain SUBJECTIVE: Mr. Maddox presents to the [facility] for a follow up appointment regarding chronic lower back pain. He states that since the last visit symptoms have been persistent. The pain is located in the left lumbar region and gluteal region and radiates to the left lower extremity along the posterior aspect to the level of the posterior thigh. // The pain is described as dull and tightness and is rated as 2 on a scale of 0-10. Symptoms interfere with walking. The pain is exacerbated by lifting, bending, sitting, and standing for too long. The pain is mitigated by lumbar extensions.. He is currently receiving medications through the [facility]. He is not having difficulty with his PMC medications. The medications are ineffective. REVIEW OF SYSTEMS: Constitutional: (-) Fever (-) Night Sweats (-) Weight Gain (-) Weight Loss (-) Fatigue Cardiovascular: (-) Chest Pain (-) Palpitations (-) Lightheadedness (-) Swelling of Ankles (-) Hx Heart Surgery Respiratory: (-) Shortness of Breath (-) Cough (-) Wheezing (+) Snoring Gastrointestinal: (-) Incontinence (-) Abdominal Pain (-) Diarrhea (-) Constipation (-) Nausea/Vomiting (-) Heart Burn Endocrine: (-) Thyroid Disorder (-) Diabetes Hematologic: (-) Prolonged Bleeding (-) Easy Bruising Genitourinary: (-) Incontinence (-) Frequency (-) Urinary Urgency Skin: (-) Rashes (-) Itching (-) Other Lesions Neurologic: (-) Headache (-) Double Vision (-) Confusion (-) Paralysis Psychiatric: (-) Depression (+) Anxiety (-) Delusions (-) Hallucinations (-) Personal History of Alcohol or Substance Abuse (-) Family History of Alcohol or Substance Abuse No past medical history on file. No past surgical history on file. ALLERGIES Allergen Reactions Penicillins Rash Current Outpatient Medications Medication Sig tiZANidine (ZANAFLEX) 4 mg tablet Take 1 tablet by mouth three times a day as needed. multivitamin tablet Take 1 tablet by mouth once daily. No current facility-administered medications for this visit. I have reviewed the nurses notes and I am aware of the family/social history. Since the last evaluation the medical history has not changed. PDMP website checked and validated. All prescriptions have been APPROPRIATELY filled. No suspicious activity was identified. 08/08/2023 by Jorge Rodas MD Narcotic Agreement reviewed and signed?: N/A on August 08, 2023 Urine Panel: No results found for: UQCANN, UQBNZL, QRA4XLA, UQAMPH, UQMAMP, UQBUPRE, UQNORBUP, UQMTHD, UQEDDP, UQTRAM, UQDTRM, UQFNTL, UQNFTL, UQCODE, UQMORP, UQDCDN, UQHCOD, UQOXYC, UQHMOR, UQOXYM, UQCREA, UQPH, UQSPGR, UQOXID, UQSPQ The pain panel was N/A PHYSICAL EXAMINATION: Performed in conjunction with observation. The patient was alert and oriented x3. The patient was in no acute distress. Lungs: Clear, negative for dyspnea or distress. CVR: Regular Rate. Negative for SOB or peripheral edema. Neck: Supple. The range of motion was intact. Negative focal tenderness Back: Range of motion of the trunk was intact.. Left paralumbar tenderness extends to the gluteal region. SLR: Negative Facet Loading: Equivocal with axial loading and extension. SI joint: Negative PSIS tenderness. Extremities: no reported edema or erythema. Motor: Negative focal deficits Gait: Within normal limits ASSESSMENT: Ddd (degenerative disc disease), lumbar (primary encounter diagnosis) Displacement of lumbar intervertebral disc without myelopathy Intervertebral disc stenosis of neural canal of lumbar region PLAN: Prior available imaging studies were reviewed. Findings were discussed. Injection history was reviewed. Medication use and compliance were reviewed. 1. Most recent MRI of the lumbar spine was reviewed with the patient. The patient has foraminal narrowing at L4-5 level worse on the left side and left-sided disc displacement L5-S1. When comparing to 2020 MRI films there has not been a significant change. The patient improved with physical therapy. Recommend conservative course. Recommend continuing home physical therapy program. 2. Interventional procedure options discussed. None at this time 3. No new medication was prescribed. 4. Encouraged regular home exercise program. 5) F/U as needed basis The treatment plan was discussed with the patient during the office visit and they verbalized an understanding of it. I have discussed and confirmed the above treatment plan with the patient and I have reviewed the nurses notes and I am aware of the family/social history. I have confirmed ROS findings. Jorge Rodas MD cc: Dr. Magdalena Fong MD cc: No referring provider defined for this encounter. Phone: N/A Fax: Results of consultation to be transmitted via electronic medical record for those providers who practice within [facility] or with access to [employer] via [employer], or via letter. 1. This document has been created with the use of voice recognition technology. It may contain inaccuracies: (e.g. misspellings, inaccurate syntax or word sense) that have escaped review. 2. The nurse practitioner, nursing staff and medical assistants are a major part of YOUR TREATMENT TEAM and will be handling your phone calls and inquiries, if any. Unless explicitly told otherwise at the time of your office visit, your study results and ensuing treatment plans will be discussed during your follow-up appointment. If you do not have a follow-up appointment and wish to discuss any issues, please set up an appointment. 3. It is my practice to not fill disability or any other insurance-related forms/documentation. All of the office notes, study results, and other pertinent documentation generated as part of your evaluation will be available to you and to your Primary Care Physician (PCP). Use of this material to complete such forms will be at the discretion of your PCP/referring physician. documented in this encounter [facility] 07-13-2023 Miscellaneous Notes [employer] message read: Last read by Garrett Rom Tan at 1:33 PM on 07/13/2023. Closing encounter. Dr. Rodas reviewed patient's thoracic XRAY. Thoracic XRAY shows: No acute findings General degenerative disc disease (wear and tear) Dr. Rodas recommends proceeding with the lumbar injection procedure scheduled 07/20/2023. [employer] message sent. documented in this encounter [facility] 07-10-2023 Note HNO ID: [id number] Author: DENISE REYNAGA APRN.POSITION CLASSIFIER Service: ? Author Type: Nurse Practitioner Type: Progress Notes Filed: 07/12/2023 18:07 Note Text: Subjective Garrett Maddox presents to [facility] for a follow up appointment. Since the last visit, Garrett Maddox states the pain has been persistent. Current pain intensity is 8 on a scale of 0-10. Pain located in lower back pain that radiates down LE. Pain described as aching, burning, and dull Symptoms interfere with physical activity. Pain is exacerbated by unable to pinpoint exacerbating factors/positions. Pain is mitigated by unable to pinpoint positions/factors that are mitigating. Review of Systems Constitutional: (-) Weight Gain (-) Weight Loss (-) Fatigue Cardiovascular: (-) hx heart surgery (-) Pacemaker Respiratory: (-) Shortness of Breath (-) Cough (+) Snoring Gastrointestinal: (-) Incontinence (-) Diarrhea (-) Constipation (-) Nausea/Vomiting Endocrine: (-) Thyroid Disorder (-) Diabetes Hematologic: (-) Prolonged Bleeding (-) Easy Bruising Genitourinary: (-) Incontinence (-) Frequency (-) Urinary Urgency Skin: (-) Open sores/wound Neurologic: (-) Headache (-) Double Vision Psychiatric: (-) Depression (+) Anxiety (-) Personal History of Alcohol or Substance Abuse (-) Family History of Alcohol or Substance Abuse Chief Complaint Patient presents with: Low Back Pain Physical Examination There were no vitals taken for this visit. General:well appearing and alert Skin: Skin color, texture, turgor normal, no rashes or lesions HEENT: normal Cardiovascular: Regular, rate and rhythm Lungs: Normal respiratory rate and rhythm, unlabored on room air Musculoskeletal: Back: Tenderness on palpation over the lumbar spine. , Tenderness over the left lumbar paraspinal muscles, Tenderness on palpation over the thoracic spine. , Tenderness over the right thoracic paraspinal muscles, Extremities: Normal exam of the extremities Neurological: Mental Status: alert Motor Strength: Motor strength and tone are 5/5 all throughout. Sensory: Not Examined Gait: Antalgic. Trigger points: paravertebral thoracic muscles and lumbosacral spine muscles. Assessment Assessment : Patient presents for a follow up visit He reports he was on an airplane x2 weeks ago and helped to take down someone's carry on bag from the overhead bind and now is experiencing increased pain. He feels pressure when he deep breaths He went to see his PCP and placed on Prednisone for 5 days, muscle relaxer-flexeril and mobic. Tried robaxin He reports the pred did not help and flexeril caused drowsiness Discussed TENS UNIT and OTC salon pas patches Cancelled his trip to [facility] due to the pain He is schedule for a lumbar TFSI in the next week Has chronic low back pain that radiates down the left LE Encounter Diagnosis ICD-10-CM 1. Muscle pain M79.10 XR THORACIC LIMITED 2V AP/LAT CONSULT TO PHYSICAL THERAPY 2. DDD (degenerative disc disease), thoracic M51.34 XR THORACIC LIMITED 2V AP/LAT CONSULT TO PHYSICAL THERAPY 3. Radiculopathy, lumbar region M54.16 CONSULT TO PHYSICAL THERAPY 4. Intervertebral disc stenosis of neural canal of lumbar region M99.53 CONSULT TO PHYSICAL THERAPY PROMIS CAT Pain Interference 04/08/2023 PROMIS Pain Interference T-Score (range: 10 - 90) 59 (mild) PROMIS Pain Interference Percentile 18% OARRS Report: Reviewed: The patient's OARRS report was reviewed and is consistent with the reported medication use. Plan Injection history was reviewed. Medication use and compliance were reviewed. 1. Continue medication management through the [facility] 2. The following approved medication requests have been transmitted electronically. Requested Prescriptions Signed Prescriptions Disp Refills tiZANidine (ZANAFLEX) 4 mg tablet 90 tablet 0 Sig: Take 1 tablet by mouth three times a day as needed. 3. Ordered thoracic xr 4. Ordered PT 5. Interventional procedure options discussed. Is scheduled for left lumbar TFESI 6) F/U in 6 weeks after the injection The level of medical decision making for this encounter was low level. I spent a total of 25 minutes on the date of the service which included preparing to see the patient, [id number] patient care, completing clinical documentation, performing a medically appropriate examination, and ordering medications, tests, or procedures. 1. This document has been created with the use of voice recognition technology. It may contain inaccuracies: (e.g. misspellings, inaccurate syntax or word sense) that have escaped review. 2. The physician, nursing staff and medical assistants are a major part of YOUR TREATMENT TEAM and will be handling your phone calls and inquiries, if any. Unless explicitly told otherwise at the time of your office visit, your study results and (more content not included)... [facility] 07-10-2023 History of Presen t illness Narrative Subjective Garrett Maddox presents to [facility] for a follow up appointment. Since the last visit, Garrett Maddox states the pain has been persistent. Current pain intensity is 8 on a scale of 0-10. Pain located in lower back pain that radiates down LE. Pain described as aching, burning, and dull Symptoms interfere with physical activity. Pain is exacerbated by unable to pinpoint exacerbating factors/positions. Pain is mitigated by unable to pinpoint positions/factors that are mitigating. Review of Systems Constitutional: (-) Weight Gain (-) Weight Loss (-) Fatigue Cardiovascular: (-) hx heart surgery (-) Pacemaker Respiratory: (-) Shortness of Breath (-) Cough (+) Snoring Gastrointestinal: (-) Incontinence (-) Diarrhea (-) Constipation (-) Nausea/Vomiting Endocrine: (-) Thyroid Disorder (-) Diabetes Hematologic: (-) Prolonged Bleeding (-) Easy Bruising Genitourinary: (-) Incontinence (-) Frequency (-) Urinary Urgency Skin: (-) Open sores/wound Neurologic: (-) Headache (-) Double Vision Psychiatric: (-) Depression (+) Anxiety (-) Personal History of Alcohol or Substance Abuse (-) Family History of Alcohol or Substance Abuse Chief Complaint Patient presents with: Low Back Pain Physical Examination There were no vitals taken for this visit. General:well appearing and alert Skin: Skin color, texture, turgor normal, no rashes or lesions HEENT: normal Cardiovascular: Regular, rate and rhythm Lungs: Normal respiratory rate and rhythm, unlabored on room air Musculoskeletal: Back: Tenderness on palpation over the lumbar spine. , Tenderness over the left lumbar paraspinal muscles, Tenderness on palpation over the thoracic spine. , Tenderness over the right thoracic paraspinal muscles, Extremities: Normal exam of the extremities Neurological: Mental Status: alert Motor Strength: Motor strength and tone are 5/5 all throughout. Sensory: Not Examined Gait: Antalgic. Trigger points: paravertebral thoracic muscles and lumbosacral spine muscles. Assessment Assessment : Patient presents for a follow up visit He reports he was on an airplane x2 weeks ago and helped to take down someone's carry on bag from the overhead bind and now is experiencing increased pain. He feels pressure when he deep breaths He went to see his PCP and placed on Prednisone for 5 days, muscle relaxer-flexeril and mobic. Tried robaxin He reports the pred did not help and flexeril caused drowsiness Discussed TENS UNIT and OTC salon pas patches Cancelled his trip to [facility] due to the pain He is schedule for a lumbar TFSI in the next week Has chronic low back pain that radiates down the left LE Encounter Diagnosis ICD-10-CM 1. Muscle pain M79.10 XR THORACIC LIMITED 2V AP/LAT CONSULT TO PHYSICAL THERAPY 2. DDD (degenerative disc disease), thoracic M51.34 XR THORACIC LIMITED 2V AP/LAT CONSULT TO PHYSICAL THERAPY 3. Radiculopathy, lumbar region M54.16 CONSULT TO PHYSICAL THERAPY 4. Intervertebral disc stenosis of neural canal of lumbar region M99.53 CONSULT TO PHYSICAL THERAPY PROMIS CAT Pain Interference 04/08/2023 PROMIS Pain Interference T-Score (range: 10 - 90) 59 (mild) PROMIS Pain Interference Percentile 18% OARRS Report: Reviewed: The patient's OARRS report was reviewed and is consistent with the reported medication use. Plan Injection history was reviewed. Medication use and compliance were reviewed. 1. Continue medication management through the [facility] 2. The following approved medication requests have been transmitted electronically. Requested Prescriptions Signed Prescriptions Disp Refills tiZANidine (ZANAFLEX) 4 mg tablet 90 tablet 0 Sig: Take 1 tablet by mouth three times a day as needed. 3. Ordered thoracic xr 4. Ordered PT 5. Interventional procedure options discussed. Is scheduled for left lumbar TFESI 6) F/U in 6 weeks after the injection The level of medical decision making for this encounter was low level. I spent a total of 25 minutes on the date of the service which included preparing to see the patient, [id number] patient care, completing clinical documentation, performing a medically appropriate examination, and ordering medications, tests, or procedures. 1. This document has been created with the use of voice recognition technology. It may contain inaccuracies: (e.g. misspellings, inaccurate syntax or word sense) that have escaped review. 2. The physician, nursing staff and medical assistants are a major part of YOUR TREATMENT TEAM and will be handling your phone calls and inquiries, if any. Unless explicitly told otherwise at the time of your office visit, your study results and ensuing treatment plans will be discussed during your follow-up appointment. If you do not have a follow-up appointment and wish to discuss any issues, please set up an appointment. 3. It is my practice to not fill disability or any other insurance-related forms/documentation. All of the office notes, study results, and other pertinent documentation generated as part of your evaluation will be available to you and to your Primary Care Physician (PCP). Use of this material to complete such forms will be at the discretion of your PCP/referring physician. The above plan and management options were discussed at length with patient. Patient is in agreement with the above and verbalized understanding. Denise Reynaga APRN, CNP July 10, 2023 documented in this encounter [facility] 06-21-2023 Miscellaneous Notes Injection order signed off Patient contacted via telephone to schedule injection. Patient has scheduled for: July 20, 2023 Patient instructed to hold the following medication(s) prior to the procedure: NONE Pre-procedure instructions reviewed over telephone and a list of instructions were sent via [employer]. Patient verbalized understanding with no additional questions or concerns at this time. [employer] message read: Last read by Garrett Maddox at 9:25 AM on 06/20/2023. Dr. Rodas reviewed patient's lumbar MRI. Lumbar MRI shows: Left-sided bulging disc at L4-5, L5-S1 Dr. Rodas recommends a left L5-S1 lumbar transforaminal epidural steroid injection. [employer] message sent. Injection order pended for provider review. Routing to provider. documented in this encounter [facility] 06-19-2023 History of Presen t illness Narrative Radiology Service Progress Note PATIENT NAME: Garrett Maddox DATE OF SERVICE: June 19, 2023 TIME: 7:53 AM PATIENT IDENTITY VERIFICATION COMPLETED USING TWO (2) IDENTIFIERS: Name and Date of confirmed by patient verbally. FALL SCREENING: Has the patient had 2 falls in the last year or 1 fall with injury or currently using an Ambulatory Assistive Device (Walker, Cane, Wheelchair, Crutches, etc.)? 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 SETTER: No RADIOLOGY DEPARTMENT: MR; Exam(s) Completed: Spine: Lumbar spine PERIPHERAL IV DATA: Not applicable SIGNED BY: RT Bridgette(R) June 19, 2023 7:53 AM documented in this encounter [facility] 05-02-2023 History of Presen t illness Narrative Episode Visit Count: 6 Therapist That Will Accept/Oversee The Plan Of Care: Tamela Dobbs Start of Care Date: 04/13/23 Onset Date: 04/13/06 Plan of Care Certification Date: 04/13/23 Next Certification Due Date: 05/18/23 REHABILITATION AND SPORTS THERAPY PHYSICAL THERAPY TREATMENT NOTE ASSESSMENT: Garrett Maddox tolerated the session with increased symptoms. He demonstrated improvements in low back symptoms consistently throughout visit with repeated lumbar extension. The patient will continue to benefit from ongoing skilled physical therapy to progress toward set goals. PLAN FOR NEXT VISIT: Continue eccentric heel lowering SUBJECTIVE: Pt. reports some pain with quadruped exercises. Patient Goals: strengthen his core Pain: Pain Pain Level: 1 Pain Location: Low Back/Lumbar Spine - Right, Low Back/Lumbar Spine - Left, Buttocks - Left Pain Level 2: 1 Pain Location 2: Buttocks - Left Post Treatment Pain Post Treatment Pain Location: Low Back/Lumbar Spine - Left Post Treatment Pain Location 2: Leg - Left OBJECTIVE MEASURES WITH LEVEL OF FUNCTION: TREATMENT: Therapeutic Exercise: 1: prone 2 min - reduced pain in the low back 2: prone press ups 3x5 3: standing lumbar extension 2x10 to reduce some discomfort following quadruped hydrants - resolves symptoms (cues to move at the low back, not just the head) 4: TA pull down with hoist , plate 2 + 2 small round 3x12 5: hoist reverse walk outs 3x5, plate 2 + 2 small round plates 6: lateral step downs 6 2x8 each side, 3 seconds to the bottom (X2 UE support at // bars) Skilled Intervention: Patient was educated in proper exercise technique and purpose for exercises. Skilled judgment was used in selection of appropriate interventions. Correct performance of therapeutic exercises was facilitated with verbal, visual, and tactile cuing. Educated patient on rationale for performing exercises in regards to decreasing fatigue , increase ease of ADL, and ROM and function . Patient education as noted. Neuromuscular Re-Education: 1: quadruped TA activation 2x10 2: quadruped TA activation 3x5 hip exstension each side, cues to maintain TA activation 3: quadrupd TA activation 2x5 each side Skilled Intervention: Skilled judgment used to assess appropriate program for balance and coordination activity. Education in proprioceptive/kinesthetic awareness during dynamic activities. Reviewed and educated patient on additions/changes for home program as noted above with an (*). Patient education as noted. Self-Group Home Management: 1: discussed pain is not an expected response to strengthening exercises, extension exercises on HEP to be completed when pt. has pain. 2: discussed completing exercises at a dental specialist resistance with more emphasis on core activation rather than how much weight pt. is able to tolerate with pain. Discussed how exercises shoulde be pain free. 3: discussed the purpose of stability strengthening Skilled Intervention: Skilled judgment in the selection of proper modification for activity of daily living/home management based on clinical presentation, deficits, and needs. Reviewed patient specific diagnosis in relation to activities of daily living/home management. Activity progression based on professional judgement. Reviewed and educated patient on additions/changes for home program as noted above with an (*). Billing Therapeutic Exercise Treatment Minutes: 20 Neuromuscular Re-Education Treatment Minutes: 15 Self-Care/Home Management Treatment Minutes: 5 Skilled Treatment Time Minutes (timed and untimed codes): 40 Total Session Time (minutes): 40 Session Start Time : 1800 Session Stop Time : 1840 Tamela Dobbs PT documented in this encounter [facility] 04-20-2023 History of Presen t illness Narrative Episode Visit Count: 3 Therapist That Will Accept/Oversee The Plan Of Care: Tamela Dobbs Start of Care Date: 04/13/23 Onset Date: 04/13/06 Plan of Care Certification Date: 04/13/23 Next Certification Due Date: 05/18/23 Patient Identified by Name and Date of : Yes REHABILITATION AND SPORTS THERAPY PHYSICAL THERAPY TREATMENT NOTE ASSESSMENT: Garrett Maddox tolerated the session with fatigue and expected muscle soreness. He demonstrated improvements in L gluteal pain with change in stance with exercises at Hoist machine . The patient will continue to benefit from ongoing skilled physical therapy to progress toward set goals. PLAN FOR NEXT VISIT: Give Stir the Pot with GTn B for HEP. SUBJECTIVE: Pt reports that his back is feeling better. Pt reports that the new exercises are going better and seem to be okay. Pain: Pain Pain Level: (minimal) Pain Location: Low Back/Lumbar Spine - Right, Low Back/Lumbar Spine - Left Pain Location 2: Buttocks - Left Post Treatment Pain Post Treatment Pain Level: No Change Post Treatment Pain Location: Low Back/Lumbar Spine - Left OBJECTIVE MEASURES WITH LEVEL OF FUNCTION: TREATMENT: Therapeutic Exercise: 1: ANATOLIY x 2 minutes 2: prone press ups 2x10 3: Pallof's press at Hoist with 1 plate 2x10 facing each direction. (knees bent and slight hip hinge- no pain on L side) 4: hoist TA stabilization with BUE shoulder extension plate 2 4x12 5: hoist TA stir the pot x12 R side facing anchor only , CW and CCW with 1 plate 6: Stir the Pot with GTB 2x10 CW and CCW facing each direction. (decreased burning sensation in L glutes.) 7: hoist TA stabilization with BUE shoulder extension plate 2 4x10 8: hoist reverse walk outs plate 2 2x10 9: Standing push into 65 cm physioball positioned on top of plinth 2x10 10: Standing push into 65 cm physioball positioned on top of plinth x10 with 10 second holds Skilled Intervention: Patient was educated in proper exercise technique and purpose for exercises. Skilled judgment was used in selection of appropriate interventions. Correct performance of therapeutic exercises was facilitated with verbal and visual cuing. Billing Therapeutic Exercise Treatment Minutes: 43 Skilled Treatment Time Minutes (timed and untimed codes): 43 Total Session Time (minutes): 43 Session Start Time : 1313 Session Stop Time : 1356 ESPINOZA Genao, PT documented in this encounter [facility] 04-17-2023 History of Presen t illness Narrative Program_ID:[id number] Access Code: [email or web address] URL: [email or web address] Date: 04-17-2023 Prepared By: Tamela Dobbs Program Notes Exercises - Prone Press Up - 3-5 x daily - 7 x weekly - 3 - 10 - Standing Lumbar Extension - 3-5 x daily - 7 x weekly - 3 - 10 - Static Prone on Elbows - 2-3 x daily - 7 x weekly - 1 - 1 - Standing Shoulder Extension with Resistance - 1 x daily - 7 x weekly - 2-3 - 12 Episode Visit Count: 2 Therapist That Will Accept/Oversee The Plan Of Care: Tamela Dobbs Start of Care Date: 04/13/23 Onset Date: 04/13/06 Plan of Care Certification Date: 04/13/23 Next Certification Due Date: 05/18/23 REHABILITATION AND SPORTS THERAPY PHYSICAL THERAPY TREATMENT NOTE ASSESSMENT: Garrett Maddox tolerated the session with decreased symptoms. He demonstrated lumbar extension directional preference this visit. Pt. Was not able to tolerate stir the pot in standing with light resistance on hoist machine when the machine was to his left side. The patient will continue to benefit from ongoing skilled physical therapy to progress toward set goals. Current Frequency: 2x/week PLAN FOR NEXT VISIT: extension directional preference core stabilization strengthening with hoist SUBJECTIVE: Pt. reports lumbar extension reduced his LE and LBP 2x over the weekend. He has increased pain with bug exercises. Patient Goals: strengthen his core Functional Limitations: lifting, heavy exertion, sitting (must sit in straight back chair) Pain: Pain Pain Level: 2 Pain Location: Low Back/Lumbar Spine - Right, Low Back/Lumbar Spine - Left Pain Level 2: 2 Pain Location 2: Buttocks - Left Post Treatment Pain Post Treatment Pain Level: 0 Post Treatment Pain Location: Low Back/Lumbar Spine - Left Post Treatment Pain Description: Aching Post Treatment Pain Score 2: 0/10 Post Treatment Pain Location 2: Leg - Left OBJECTIVE MEASURES WITH LEVEL OF FUNCTION: Repeated Test Movements - Lumbar EBONI - Symptoms During: centralizing EBONI - Symptoms After: abolished Static Testing - Lumbar Lying Prone In Extension: abolished TREATMENT: Therapeutic Exercise: 1: prone lay 2 min symptoms abolish 2: ANATOLIY 2 min symptoms abolish 3: standing lumbar extension 2x10 4: prone press ups 2x10 5: hoist TA stabilization with BUE shoulder extension plate 2 4x12 6: hoist TA stir the pot 1x12 each side, CW and CCW with plate 1, unable to tolerate L side toward 7: hoist reverse walk outs plate 2 2x10 8: Access Code: [email or web address] URL: [email or web address] Date: 04/17/2023 Prepared by: Tamela Serrato Exercises - Prone Press Up - 3-5 x daily - 7 x weekly - 3 sets - 10 reps - Standing Lumbar Extension - 3-5 x daily - 7 x weekly - 3 sets - 10 reps - Static Prone on Elbows - 2-3 x daily - 7 x weekly - 1 sets - 1 reps - 1-3 hold - Standing Shoulder Extension with Resistance - 1 x daily - 7 x weekly - 2-3 sets - 12 reps - 1 hold Skilled Intervention: Patient was educated in proper exercise technique and purpose for exercises. Reviewed and educated patient on additions/changes for home exercise program as above (*). Skilled judgment was used in selection of appropriate interventions. Provided written instruction for home exercise program to facilitate proper performance and compliance. Correct performance of therapeutic exercises was facilitated with verbal, visual, and tactile cuing. Educated patient on rationale for performing exercises in regards to decreasing fatigue , increase ease of ADL, and ROM and function . Patient education as noted. Billing Therapeutic Exercise Treatment Minutes: 40 Skilled Treatment Time Minutes (timed and untimed codes): 40 Total Session Time (minutes): 40 Session Start Time : 1630 Session Stop Time : 0 Tamela Dobbs PT documented in this encounter [facility] 04-13-2023 History of Presen t illness Narrative Program_ID:[id number] Access Code: [email or web address] URL: [email or web address] Date: 04-13-2023 Prepared By: Tamela Dobbs Program Notes Exercises - Supine Transversus Abdominis Bracing - Hands on Stomach - 1-2 x daily - 7 x weekly - 2 - 5 - Supine July - 1-2 x daily - 7 x weekly - 3 - - Bug - 1-2 x daily - 7 x weekly - 3 - - Bent Knee Fallouts - 1-2 x daily - 7 x weekly - 3 - Episode Visit Count: 1 Therapist That Will Accept/Oversee The Plan Of Care: Tamela Dobbs Start of Care Date: 04/13/23 Onset Date: 04/13/06 Plan of Care Certification Date: 04/13/23 Next Certification Due Date: 05/18/23 Patient Identified by Name and Date of : Yes REHABILITATION AND SPORTS THERAPY PHYSICAL THERAPY EVALUATION PLAN OF CARE: Assessment: Garrett Maddox presents with diagnosis of muscle pain, radiculopathy lumbar region, displacement of lumbar intervertebral disc without myelopathy, intervertebral disc stenosis of neural canal of lumbar region that interferes with lifting, heavy exertion, sitting (must sit in straight back chair) . He presents with impairments in ADL's, flexibility, independence in exercise, joint mobility, overall function, patient reported outcome measures, posture, strength, and symptom management. PROMIS (Patient-Reported Outcomes Measurement Information System) scores were reviewed and physical function domain identified as a rehabilitation concern. Prognosis for therapy is Good due to: good support system/ coping skills, good overall health status, acuteness of condition, current objective clinical presentation . He will benefit from skilled therapy services to meet the goals established for this plan of care as noted below. Classification Low Back Pain Subgroup Classification: Core stabilization subgroup: recommended visits 10. Core Stabilization Subgroup Classification based on: pain with transitional movements, history of locking/catching Goals for Episode of Care: created on 04/13/23 through 05/25/23 Independent in home exercises. Patient will decrease pain rating by 2 points to meet minimal clinical important difference for numeric pain rating scale. Restore pain-free lumbar ROM to right and left side glides to minimal to no limitation without symptoms to allow for ADLs. Sleep through night without pain/symptoms. Sit 2-3 hours without pain/symptoms to allow for prolonged driving or work activities. Patient will be able to tolerate functional activities including bending and lifting ~50 to 60 pounds without increased symptoms. Patient Goals: strengthen his core Planned Interventions, Frequency, and Duration: Current Frequency: 2x/week Duration: 6 weeks Total Number of Visits Planned: 12 Planned Treatment Interventions: Therapeutic exercise (15527), Neuromuscular re-education (34605), Manual therapy (98549), Therapeutic activities (28050), Self-correction management (30446), Gait Training (25213) PLAN FOR NEXT VISIT: Assess symptom response to TA stabilization in hook lying Patient demonstrates good understanding of plan of care and treatment. The above goals and plan of care were discussed and agreed upon by patient/family. SUBJECTIVE: for chronic LBP with radiating symptoms along the LLE. Symptoms became worse Thanksgiving night. Pt. just completed steroids yesterday. No LLE radiating symptoms currently. Pt. completes an HEP routine from previous therapy including prone press ups and lumbar extension however it does not reduce his symptoms as it did in the past. He has continued these exercises daily as part of his routine. Pt. has tried planks and KB exercises to improve core strength, however this produced symtpoms. Prlonged sitting and bending causes pain a few days laer. 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 Cancer Red Flags: Age >50 or <20 Cancer Clinical Reasoning: Proceed with caution Infection Clinical Reasoning: No identified risk factors. Cauda Equina Syndrome Clinical Reasoning: No identified risk factors. Red Flags - Cervical Cancer Red Flags: Age >50 or <20 Cancer Clinical Reasoning: Proceed with caution Infection Clinical Reasoning: No identified risk factors. Spine History Symptoms Location at Onset: Back Symptoms Since Onset: Improving Pain is Worse Always: Prolonged positions, Driving, Sitting, Bending, AM Pain is Better Always: Standing Sleep Affected by Pain: Pain keeps from falling asleep (stress at work and steroid use) Pain: Pain Pain Level: 2 Pain Location: Low Back/Lumbar Spine - Right, Low Back/Lumbar Spine - Left Description: Sore Frequency: Sitting Additional Pain Information : Location 2 Pain Level 2: 0 Pain Location 2: Leg - Left Post Treatment Pain Post Treatment Pain Level: No Change Post Treatment Pain Location: Low Back/Lumbar Spine - Left Post Treatment Pain Description: Aching Post Treatment Pain Score 2: No Change Post Treatment Pain Location 2: Leg - Left PROMIS Scales Higher is Better 04/11/2023 04/08/2023 03/05/2023 Phys Func - Score - 35 (moderate dysfunction) 39 (moderate dysfunction) Phys Func - Percentile - 7 % 14 % Self-Eff Symptom - Score 42 (Average) - - Self-Eff Symptom - Percentile 21 % - - T-scores: mean of general population = 50. 5 points is clinically meaningfully difference Percentiles provide an indication of how the patient's score ranks in relation to the general population. Higher percentile rankings indicate better function/quality of life. 50th percentile is the average of the general population and indicates half of respondents had a worse score. OBJECTIVE MEASURES WITH LEVEL OF FUNCTION: Posture / Alignment Posture: Good Effects of Posture Correction: lumbar roll Sensation - Lumbar Sensation: Grossly Intact Lumbar Spine AROM Lumbar Flexion: Normal Lumbar Extension: Normal Lumbar R Side Pattison: Normal Lumbar L Side Pattison: Produces (no radiating symptoms down LLE) Lumbar R Side-Bend: Normal Lumbar L Side-Bend: Normal Lumbar R Rotation: Normal Lumbar L Rotation: Normal Repeated Test Movements - Lumbar RFIS - Symptoms During: no effect RFIS - Symptoms After: no effect EBONI - Symptoms During: no effect EBONI - Symptoms After: no effect Static Testing - Lumbar Sit Erect: better LE Flexibility Flexibility: Hamstring Flexibility R Hamstring Flexibility: limited L Hamstring Flexibility: limited > RLE LE Strength R Hip Flexion (L2): 4-/5 L Hip Flexion (L2): 4-/5 Special Tests - Hip and Spine Hip and Spine Special Tests: SLR Test, SAM Test, FADDIR Test, Active SLR SLR Test: Right Negative, Left Negative SAM Test: Right Negative, Left Negative FADDIR Test: Right Negative, Left Negative Active SLR: Left Negative, Right Negative (LLE SLR produces low back symptoms if the CL LE is extended in supine) Education: Education Learning Preferences: Demonstration, Performance, Printed Materials, Explanation Barriers: None Learning/educational needs: Gait Training, Plan of Care, Home exercise program, Posture Education Provided: Yes, see treatment interventions for education provided Education Provided To: Patient Education Mode/Type: Demonstration, Explanation/Discussion, Literature/Printed Materials, Performance Response to Education/Teach Back: States/Identifies, Return Demonstration TREATMENT: PT Treatment Interventions: Therapeutic Exercise, Self-Group Home Management Evaluation Therapeutic Exercise: 1: Supine Transversus Abdominis Bracing - Hands on Stomach - 1-2 x daily - 7 x weekly - 2 sets - 5 reps - 10 hold - Supine March - 1-2 x daily - 7 x weekly - 3 sets - 30 hold - Bug - 1-2 x daily - 7 x weekly - 3 sets - 30 hold - Bent Knee Fallouts - 1-2 x daily - 7 x weekly - 3 sets - 30 hold Skilled Intervention: Patient was educated in proper exercise technique and purpose for exercises. Reviewed and educated patient on additions/changes for home exercise program as above (*). Skilled judgment was used in selection of appropriate interventions. Correct performance of therapeutic exercises was facilitated with verbal, visual, and tactile cuing. Educated patient on rationale for performing exercises in regards to decreasing fatigue , increase ease of ADL, and ROM and function . Patient education as noted. Self-Group Home Management: 1: directional preference 2: discussed core stabilization strengthening in neutral as opposed to extension or flexion to prevent worsening symptoms -- no clear directional preference of symptom provocation or relief today 3: dc previous exercises at this time to clearly determine how pt. responds to HEP. Skilled Intervention: Skilled judgment in the selection of proper modification for activity of daily living/home management based on clinical presentation, deficits, and needs. Provided written instruction for activities of daily living techniques to facilitate proper performance and compliance. Reviewed patient specific diagnosis in relation to activities of daily living/home management. Activity progression based on professional judgement. Reviewed and educated patient on additions/changes for home program as noted above with an (*). Provided written instruction for home program to facilitate proper performance and compliance. Billing * Evaluation Low Complexity: 1 Unit Therapeutic Exercise Treatment Minutes: 15 Self-Care/Home Management Treatment Minutes: 10 Skilled Treatment Time Minutes (timed and untimed codes): 45 Total Session Time (minutes): 45 Session Start Time : 1315 Session Stop Time : 1400 Tamela O'Arturo, PT documented in this encounter [facility] 04-09-2023 History of Presen t illness Narrative VIRTUAL VISIT PROGRESS NOTE This is a virtual visit using [employer] Video Visit. It required patient-provider interaction for the medical decision making as documented below. I have communicated my name and active licensure. The patient's identity and physical location were verified at the time of this visit. Either the patient or their legal service representative has been informed of the risks and benefits of -- and alternatives to -- treatment through a remote evaluation and consents to proceed with the evaluation remotely. Garrett Maddox is a 58 year old male seen for follow up. HISTORY REVIEWED (electronic chart updated): No past medical history on file. No past surgical history on file. No family history on file. Social History Tobacco Use Smoking status: Never Smokeless tobacco: Never Substance Use Topics Alcohol use: Yes Comment: 12-15 beers per week Drug use: Never Current Outpatient Medications Medication Sig multivitamin tablet Take 1 tablet by mouth once daily. No current facility-administered medications for this visit. ALLERGIES Allergen Reactions Penicillins Rash REVIEW OF SYSTEMS: GENERAL: feeling well without fatigue PHYSICAL EXAMINATION: VIDEO EXAM: (if completed, performed via video enabled technology) GENERAL: alert and appropriate, in no distress ASSESSMENT: (M79.10) Muscle pain (primary encounter diagnosis) (M54.16) Radiculopathy, lumbar region (M51.26) Displacement of lumbar intervertebral disc without myelopathy (M99.53) Intervertebral disc stenosis of neural canal of lumbar region (M48.062) Spinal stenosis of lumbar region with neurogenic claudication Patient presents for a follow up Patient reports he woke up Thanksgiving night with left sciatica down the left LE to mid thigh. Pain was 8/10 He thinks he may have done too much preparing for Thanksgiving His PCP ordered prednisone taper and gabapentin 100 mg. He is taking the luisa at bedtime due to causing drowsiness His pain is a dull, ache, burn. Pain is now 4/10 Discussed PT and updated MRI PLAN: Ordered lumbar MRI Ordered PT Continue with stretches an execises Follow up as needed There are no Patient Instructions on file for this visit. I spent a total of 15 minutes on the date of the service which included preparing to see the patient, [id number] patient care, completing clinical documentation, and ordering medications, tests, or procedures Denise Reynaga APRN.POSITION CLASSIFIER documented in this encounter [facility] 09-19-2022 Procedure note [facility] 09-19-2022 Procedure note [facility] 05-23-2022 History of Presen t illness Narrative VIRTUAL VISIT PROGRESS NOTE This is a virtual visit using [employer] video visit. It required patient-provider interaction for the medical decision making as documented below. Garrett Maddox is a 57 year old male seen for follow up. HISTORY REVIEWED (electronic chart updated): No past medical history on file. No past surgical history on file. No family history on file. Social History Tobacco Use Smoking status: Never Smokeless tobacco: Never Substance Use Topics Alcohol use: Yes Comment: 12-15 beers per week Drug use: Never Current Outpatient Medications Medication Sig multivitamin tablet Take 1 tablet by mouth once daily. No current facility-administered medications for this visit. ALLERGIES Allergen Reactions Penicillins Rash REVIEW OF SYSTEMS: GENERAL: feeling well without fatigue PHYSICAL EXAMINATION: VIDEO EXAM: (if completed, performed via video enabled technology) GENERAL: alert and appropriate, in no distress ASSESSMENT: (M51.36) DDD (degenerative disc disease), lumbar (primary encounter diagnosis) (M54.16) Radiculopathy, lumbar region (M99.53) Intervertebral disc stenosis of neural canal of lumbar region Patient presents today via virtual visit for follow-up Patient reports he was moving a refrigerator around on Sunday which has exacerbated his pain He is experiencing left-sided back pain in the paraspinal muscles that radiates into the buttocks, denies radicular symptoms He reports that he has been sore and stiff He had an old Flexeril prescription and tried to take without much benefit besides making him tired He had an old prescription of Toradol and took 7 of those pills Discussed switching to Robaxin Discussed Medrol Dosepak Continue with the stretches Can try [id number] Salonpas Use a heating pad Touch base in x2 weeks to see how he is doing. May consider a lumbar MRI PLAN: The following approved medication requests have been transmitted electronically. Requested Prescriptions Signed Prescriptions Disp Refills methylPREDNISolone (MEDROL, MONICA,) 4 mg Dose-Pack 21 tablet 0 Sig: As Instructed per package methocarbamol (ROBAXIN-750) 750 mg tablet 90 tablet 0 Sig: Take 1 tablet by mouth three times daily as needed. 2. [facility] to report how he is doing There are no Patient Instructions on file for this visit. I spent a total of 11 minutes on the date of the service which included preparing to see the patient, [id number] patient care, completing clinical documentation, and ordering medications, tests, or procedures Denise Reynaga APRN.MYA documented in this encounter [facility] 01-06-2022 Miscellaneous Notes Patient left voicemail 01/06/2022 at 0834 Patient states he is scheduled for injection with Dr. Rodas on 01/17/2022 Patient requesting to reschedule it for a few weeks later Patient added to injection scheduling spreadsheet documented in this encounter [facility] 12-04-2021 History of Presen t illness Narrative SUBJECTIVE: [facility] Madd[facility] a follow up appointment for follow up Since the last visit, Garrett Maddox states the pain has been better. Current pain intensity is 4 on a scale of 0-10. Pain located in Back area and radiates into buttocks. Pain described as aching, dull and sharp The patient Reports numbness and tingling. Symptoms interfere with physical activity, walking and driving. Pain is exacerbated by inactivity. Pain is mitigated by stretching. The patient is overall improved with the injections by 40%. The medications are ineffective. The patient states he does not take any medications for this pain; an occasional ibuprofen. REVIEW OF SYSTEMS: Constitutional: (-) Weight Gain (-) Weight Loss (-) Fatigue Cardiovascular: (-) hx heart surgery (-) Pacemaker Respiratory: (-) Shortness of Breath (-) Cough (+) Snoring Gastrointestinal: (-) Incontinence (-) Diarrhea (-) Constipation (-) Nausea/Vomiting Endocrine: (-) Thyroid Disorder (-) Diabetes Hematologic: (-) Prolonged Bleeding (-) Easy Bruising Genitourinary: (-) Incontinence (-) Frequency (-) Urinary Urgency Skin: (-) Open sores/wound Neurologic: (-) Headache (-) Double Vision Psychiatric: (-) Depression (+) Anxiety (-) Personal History of Alcohol or Substance Abuse (-) Family History of Alcohol or Substance Abuse CHIEF COMPLAINT:Patient presents with: Injection Followup Back Pain OBJECTIVE: Pulse 77 Ht 6' 0 (1.83m) Wt 257 lb 4.8 oz (116.7kg) SpO2 97% BMI 34.89 kg/(m^2). PHYSICAL EXAMINATION: General appearance: Well appearing, in no acute distress, alert and oriented x3 Skin: Skin color, texture, turgor normal, no rashes or lesions Neck: No pain to palpation over the cervical paraspinous muscles. No pain with neck flexion, extension, or lateral flexion Cardiovascular: Regular, rate and rhythm Lungs: Normal respiratory rate and rhythm, Lungs clear to auscultation Back: Intact range of motion with pain reproduction. Spine: Reports Tenderness on palpation: Lumbar- bilateral paraspinals, L>R Extremities: No deformities, edema, or skin discoloration. Good capillary refill. Musculoskeletal: No Joint pain, no edema , no extremity tenderness Neuro: No loss of sensation is noted. Motor skills intact Station and Gait: Normal stance, normal gait. Motor: Exhibits full strength in all four extremities. Trigger points: lumbosacral spine muscles. ASSESSMENT: Assessment : Patient presents for a follow up Patient had a left L4-5 transforaminal injection on 08-04-2021 reports 40% improvement. He would like to repeat but bilateral Patient reports low back pain that radiates down the bilateral posterior lower LEs to mid thigh. The left side is worse than the right On the right side he experiences intermittent numbness in the right anterior/lateral thigh He reports he has a stand up desk at work, which has helped. He also does core strengthen exercises with benefit on a daily basis Encounter Diagnosis ICD-10-CM 1. DDD (degenerative disc disease), lumbar M51.36 2. Intervertebral disc stenosis of neural canal of lumbar region M99.53 INJ TRANSFORAMINAL EPID ANES/STER LS SINGL 3. Displacement of lumbar intervertebral disc without myelopathy M51.26 4. Radiculopathy, lumbar region M54.16 INJ TRANSFORAMINAL EPID ANES/STER LS SINGL PDMP website checked and validated. All prescriptions have been APPROPRIATELY filled. No suspicious activity was identified. 12/04/2021 by Denise Reynaga APRN.MYA Narcotic Agreement reviewed and signed?: N/A on December 04, 2021 The pain panel was N/A PLAN: Injection history was reviewed. Medication use and compliance were reviewed. 1. No medications selected for refill. 2. Interventional procedure options discussed. Ordered and scheduled bilateral L4-5 TF MILES 3. Continue regular home exercise program. 4) F/U in 3 months I spent a total of 20 minutes on the date of the service which included preparing to see the patient, [id number] patient care, completing clinical documentation, performing a medically appropriate examination and ordering medications, tests, or procedures. The above plan and management options were discussed at length with patient. Patient is in agreement with the above and verbalized understanding. Denise Reynaga APRN, CNP December 04, 2021 documented in this encounter [facility] Evaluation note Diagnosis DDD (degenerative disc disease), lumbar- Primary Degeneration of lumbar or lumbosacral intervertebral disc Intervertebral disc stenosis of neural canal of lumbar region Spinal stenosis, lumbar region, without neurogenic claudication Displacement of lumbar intervertebral disc without myelopathy Radiculopathy, lumbar region Thoracic or lumbosacral neuritis or radiculitis, unspecified [facility] Diagnosis DDD (degenerative disc disease), lumbar- Primary Degeneration of lumbar or lumbosacral intervertebral disc Intervertebral disc stenosis of neural canal of lumbar region Spinal stenosis, lumbar region, without neurogenic claudication Displacement of lumbar intervertebral disc without myelopathy Radiculopathy, lumbar region Thoracic or lumbosacral neuritis or radiculitis, unspecified DDD (degenerative disc disease), lumbar Degeneration of lumbar or lumbosacral intervertebral disc Intervertebral disc stenosis of neural canal of lumbar region Spinal stenosis, lumbar region, without neurogenic claudication Displacement of lumbar intervertebral disc without myelopathy Radiculopathy, lumbar region Thoracic or lumbosacral neuritis or radiculitis, unspecified [facility] Work Phone: Evaluation note* Diagnosis DDD (degenerative disc disease), lumbar- Primary Degeneration of lumbar or lumbosacral intervertebral disc Intervertebral disc stenosis of neural canal of lumbar region Spinal stenosis, lumbar region, without neurogenic claudication Muscle pain Mylagia and myositis, unspecified [facility] Diagnosis Onset Date Resolution Status History of colon polyps [facility] Work Phone: Evaluation note* Diagnosis Muscle pain- Primary Mylagia and myositis, unspecified Radiculopathy, lumbar region Thoracic or lumbosacral neuritis or radiculitis, unspecified Displacement of lumbar intervertebral disc without myelopathy Intervertebral disc stenosis of neural canal of lumbar region Spinal stenosis, lumbar region, without neurogenic claudication Spinal stenosis of lumbar region with neurogenic claudication Spinal stenosis, lumbar region, with neurogenic claudication [facility] Diagnosis Muscle pain- Primary Mylagia and myositis, unspecified Radiculopathy, lumbar region Thoracic or lumbosacral neuritis or radiculitis, unspecified Displacement of lumbar intervertebral disc without myelopathy Intervertebral disc stenosis of neural canal of lumbar region Spinal stenosis, lumbar region, without neurogenic claudication [facility] Diagnosis Muscle pain- Primary Mylagia and myositis, unspecified [facility] Diagnosis Muscle pain- Primary Mylagia and myositis, unspecified [facility] Diagnosis Muscle pain- Primary Mylagia and myositis, unspecified [facility] Diagnosis Spinal stenosis of lumbar region, unspecified whether neurogenic claudication present [facility] Diagnosis Radiculopathy, lumbar region- Primary Thoracic or lumbosacral neuritis or radiculitis, unspecified Displacement of lumbar intervertebral disc without myelopathy Intervertebral disc stenosis of neural canal of lumbar region Spinal stenosis, lumbar region, without neurogenic claudication Spinal stenosis of lumbar region with neurogenic claudication Spinal stenosis, lumbar region, with neurogenic claudication [facility] Diagnosis Radiculopathy, lumbar region- Primary Thoracic or lumbosacral neuritis or radiculitis, unspecified Displacement of lumbar intervertebral disc without myelopathy Intervertebral disc stenosis of neural canal of lumbar region Spinal stenosis, lumbar region, without neurogenic claudication Spinal stenosis of lumbar region with neurogenic claudication Spinal stenosis, lumbar region, with neurogenic claudication Radiculopathy, lumbar region Thoracic or lumbosacral neuritis or radiculitis, unspecified Displacement of lumbar intervertebral disc without myelopathy Intervertebral disc stenosis of neural canal of lumbar region Spinal stenosis, lumbar region, without neurogenic claudication Spinal stenosis of lumbar region with neurogenic claudication Spinal stenosis, lumbar region, with neurogenic claudication [facility] Diagnosis Muscle pain Mylagia and myositis, unspecified DDD (degenerative disc disease), thoracic Degeneration of thoracic or thoracolumbar intervertebral disc Radiculopathy, lumbar region Thoracic or lumbosacral neuritis or radiculitis, unspecified Displacement of lumbar intervertebral disc without myelopathy Intervertebral disc stenosis of neural canal of lumbar region Spinal stenosis, lumbar region, without neurogenic claudication Spinal stenosis of lumbar region with neurogenic claudication Spinal stenosis, lumbar region, with neurogenic claudication [facility] Diagnosis Muscle pain- Primary Mylagia and myositis, unspecified DDD (degenerative disc disease), thoracic Degeneration of thoracic or thoracolumbar intervertebral disc Radiculopathy, lumbar region Thoracic or lumbosacral neuritis or radiculitis, unspecified Intervertebral disc stenosis of neural canal of lumbar region Spinal stenosis, lumbar region, without neurogenic claudication Radiculopathy, lumbar region Thoracic or lumbosacral neuritis or radiculitis, unspecified Displacement of lumbar intervertebral disc without myelopathy Intervertebral disc stenosis of neural canal of lumbar region Spinal stenosis, lumbar region, without neurogenic claudication Spinal stenosis of lumbar region with neurogenic claudication Spinal stenosis, lumbar region, with neurogenic claudication [facility] Diagnosis DDD (degenerative disc disease), lumbar- Primary Degeneration of lumbar or lumbosacral intervertebral disc Displacement of lumbar intervertebral disc without myelopathy Intervertebral disc stenosis of neural canal of lumbar region Spinal stenosis, lumbar region, without neurogenic claudication [facility] Diagnosis Radiculopathy, lumbar region- Primary Thoracic or lumbosacral neuritis or radiculitis, unspecified Displacement of lumbar intervertebral disc without myelopathy Radiculopathy, lumbar region Thoracic or lumbosacral neuritis or radiculitis, unspecified Displacement of lumbar intervertebral disc without myelopathy [facility] Diagnosis Radiculopathy, lumbar region- Primary Thoracic or lumbosacral neuritis or radiculitis, unspecified Displacement of lumbar intervertebral disc without myelopathy Radiculopathy, lumbar region Thoracic or lumbosacral neuritis or radiculitis, unspecified Displacement of lumbar intervertebral disc without myelopathy [facility]* Diagnosis Primary osteoarthritis of both knees- Primary Primary localized osteoarthrosis, lower leg Chronic pain of both knees [facility] Author Dr. Castro [facility] September 19, 2022 8:17am Note Date/Time September 19, 2022 8:17am [facility] Medical Records Department [address] [place] [address] History & Physical Exam 09/19/22 0816 MR#: [id number] Acct: [id number] Name: GARRETT MADDOX Rep #:[id number] : 1965 57 From: Kj flores MD PCP: Dr. Lonnie Fong MD Status: [facility] Location: [place] [address] HPI - General HPI Narrative GARRETT MADDOX, is a 57 M who presents for surveillance colonoscopy. His last colonoscopy was about 6 years ago and they did find polyps. He denies any abdominal pain or blood in the stool or family history of colon cancer. [facility] Medical History (Updated 09/19/22 @ 08:[address] Kj Castro MD) Cardiology follow-up encounter Dietary restriction High cholesterol History of Clostridium difficile infection History of stress test Hyperlipidemia Non-smoker Obesity Paroxysmal supraventricular tachycardia SVT (supraventricular tachycardia) Wears glasses Wide-complex tachycardia Home Medications multivitamin 1 tab PO DAILY 04/01/21 [History Last Taken Unknown] ascorbate calcium (vitamin C) 500 mg tablet 500 mg PO DAILY 08/14/22 [History Last Taken Unknown] Allergy/AdvReac Type Severity Reaction Status Date / Time kiwi Allergy Food Verified 09/19/22 07:46 Allergy melon Allergy NEEDS Verified 09/19/22 07:46 FOLLOW-UP penicillin G benzathine Allergy Rash Verified 09/19/22 07:46 Penicillins Allergy Rash Verified 09/19/22 07:46 Family History (Updated 08/14/22 @ 13:06 by Marium Farrell) Mother CAD (coronary artery disease) S/P AVR (aortic valve replacement) Hx of CABG Breast cancer Brother Colon polyps Father Prostate cancer ALS (amyotrophic lateral sclerosis) Surgical History (Updated 09/14/22 @ 12:28 by Huma Cornejo) H/O arthroscopic knee surgery History of cardiac catheterization History of cardioversion (04/17/16) History of colonoscopy History of left heart catheterization (04/18/16) History of radiofrequency ablation procedure for cardiac arrhythmia (04/19/16) History of tonsillectomy Status post repair of hydrocele Social History Smoking Status: Never smoker alcohol intake: current substance use type: does not use caffeine: No what type of physical activity do you participate in: walking frequency: 3-4 times per week duration: 30-45 minutes/day seatbelt use: always do you feel safe at home: Yes Past Medical/Surgical History Planned Operation Planned Operative Procedure/s: COLONOSCOPY Previous Hospitalizations/Surgeries HX Hospitalizations: No Any Problems With Anesthesia: No You/Your Family Experience Fever (Hyperthermia) With Anes: No Cholinesterase deficiency: No Cardiovascular Hx Chest Pain within Last 2 months: No Hx of Irregular Heartbeat and/or Afib: Yes (SVT) Hx Heart Attack: No Hx Hypertension: No Hx Cardiac Surgery/Stents/Etc.: No Hx Pain in Legs when Walking/Leg Cramps: No Respiratory Hx Chronic Obstructive Pulmonary Disease (COPD): No Hx Emphysema: No Hx Sleep Apnea: No Hx Respiratory Tract Infection/Cold (presently): No Do You Snore Loudly (louder than talking or can be heard): No Do You Often Feel Tired/ Fatigued/ Sleepy Dring Daytime?: No Has Anyone Observed You Stop Breathing During Sleep?: No Result (for STOP score): Negative Hx Smoking: No Smoking Status: Never smoker Gastrointestinal Hx Gastrointestinal Bleed: No Hx Ulcer: No Hx Unplanned Weight Loss of 20#: No Neurological Hx Seizures: No Hx Multiple Sclerosis: No Hx Parkinson's Disease: No Does patient have nerve stimulator: No Blood Disorder Hx High Cholesterol: Yes Hx Hepatitis: No Hx Cirrhosis: No Hx Anemia: No Hx Blood Disorders: No Genitourinary Hx Renal Disease: No Hx Dialysis: No Musculoskeletal Hx Arthritis: Yes (BACK AND KNEES) Hx Rheumatoid Arthritis: No Endocrine Hx Diabetes: No Thyroid Disease: No Psycho/Social Hx Substance Use: No Hx Alcohol Use: Yes (BEER ON WEEKENDS- 6-8/DAY) Hx Anxiety: No Hx Depression: No Hx Dementia: No Miscellaneous Hx Cancer: No Recent Exposure to Contagious Disease: No Allergies kiwi Allergy (Verified 09/19/22 07:46) Food Allergy melon Allergy (Verified 09/19/22 07:46) NEEDS FOLLOW-UP honey dew melon penicillin G benzathine Allergy (Verified 09/19/22 07:46) Rash Penicillins Allergy (Verified 09/19/22 07:46) Rash Discharge Is Pt Admitted From a Correction, or a Residential: No Who Could Help: After D/C, Where Do you Plan to Go: Return Home Vital Signs Vital Signs Vital Signs: 09/19/22 07:59 09/19/22 07:59 Temperature 97.2 F L Temperature Source Temporal Pulse Rate 74 Respiratory Rate 16 Respiratory Pattern Normal Blood Pressure 115/70 Blood Pressure Mean 85 Blood Pressure Source Monitor Blood Pressure Position Semi-Fowlers Blood Pressure Location Left Arm Pulse Ox 100 Oxygen Delivery Method Room Air Weight Weight: 246 lb 14.684 oz Body Mass Index (BMI) 33.5 Physical Exam Const alert and oriented x3 HEENT normocephalic Eyes PERRL Resp normal respiratory effort and normal air movement Cardio regular rate and regular rhythm GI soft to palpation, non-tender and non-distended Extremity normal to inspection Assessment & Plan Assessment/Plan (1) History of colon polyps: PLAN: I explained endoscopy in detail to the patient. I explained the risks including but not limited to stroke or heart attack with anesthesia, perforationof the GI tract, bleeding, infection. I explained that any of these could necessitate further emergency surgery. The patient understands and all questions were answered sufficiently. The patient wishes to proceed with procedure. Kj Castro MD Pager: [facility] [address] [place] [address], [address] [place] [address] Office: Surgery Risks - Colonoscopy Risks Include but are not Limited To: Risks include but are not limited to: Bleeding, perforation requiring further surgery, inability to complete colonoscopy requiring barium enema. 09/19/22 0817 <Electronically signed by Kj Castro MD> Cosigner Signature (if applicable): CC: Dr. Kj Castro MD; Dr. Lonnie Fong MD~ Signed [facility] Work Phone: [facility] (narrative)* Diagnostic Procedure Only (Routine) - Closed Specialty Diagnoses / Procedures Referred By Contac t Referred To Contact MR IMAGING Diagnoses Spinal stenosis of lumbar region, unspecified whether neurogenic claudication present Procedures MRI LUMBAR SPINE WO IVCON MRI SPINAL CANAL LUMBAR W/O CONTRAST MATERIAL Denise Reynaga APRN.POSITION CLASSIFIER [address] [place] [place] [id number] [place] [address] Referral ID Status Reason Start Date Expiration Date Visits Re quested Visits Authorized [id number] Closed 04/26/2023 06/24/2023 1 1 [facility] for visit Narrative* Diagnostic Procedure Only (Routine) - Closed Specialty Diagnoses / Procedures Referred By Contac t Referred To Contact MR IMAGING Diagnoses Spinal stenosis of lumbar region, unspecified whether neurogenic claudication present Procedures MRI LUMBAR SPINE WO IVCON MRI SPINAL CANAL LUMBAR W/O CONTRAST MATERIAL Denise Reynaga APRN.POSITION CLASSIFIER [address] [place] [address] [place] [address] Referral ID Status Reason Start Date Expiration Date Visits Re quested Visits Authorized [id number] Closed 04/26/2023 06/24/2023 1 1 [facility] for visit Narrative* Diagnostic Procedure Only (Routine) - Closed Specialty Diagnoses / Procedures Referred By Contac t Referred To Contact XR IMAGING Diagnoses Muscle pain DDD (degenerative disc disease), thoracic Procedures XR THORACIC LIMITED 2V AP/LAT RADEX SPINE THORACIC 2 VIEWS Denise Reynaga, BATCH UNLOADER.POSITION CLASSIFIER [address] [place] [address] X[facility] [place] [address] Referral ID Status Reason Start Date Expiration Date V isits Requested Visits Authorized [id number] Closed Auto-Generate d Referral 07/10/2023 08/08/2024 1 1 [facility] Advance Directives No Advanced Directives Records FoundDocuments on File Type Date Recorded 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 Advance Directive(s) 08/04/2021 8:36 AM Advance Directive(s) 08/04/2021 9:12 AM Advance Directive(s) 07/27/2021 10:04 AM Advance Directive Response Recorded Date/ Time Advance Directives No April 17, 2016 6:12pm Living Will No December 15, 2017 12:28pm Power of Opticianry Teacher No December 15 12:28pm Advance Directive Response Recorded Date/ Time Name of Medical Power of Opticianry Teacher September 14, 2022 12:28pm Advance Directives No April 17, 2016 7:12pm Living Will Yes September 14, 2022 12 :28pm Power of Opticianry Teacher Yes September 14, 2022 12:28pm Advance Directive Response Recorded Date/ Time Advance Directives No April 17, 2016 6:12pm Living Will Yes September 14, 2022 11 :28am Power of Opticianry Teacher Yes September 14, 2022 11:28am Family History No Family History Records Found Relationship Condition Age at Onset Recorded Date/T felice mother Coronary artery disease Unknown Status post aortic valve replacement Unkn own History of coronary artery bypass surgery Unknown Relationship Condition Age at Onset Recorded Date/T felice mother Coronary artery disease Unknown Status post aortic valve replacement Unkn own History of coronary artery bypass surgery Unknown Malignant neoplasm of breast Unknown brother Polyp of colon Unknown father Malignant neoplasm of prostate Unknown Amyotrophic lateral sclerosis Unknown Chief Complaint and Reason for Visit Chief Complaint Amb Documentation Reason for Visit History of colon raiza yps Reason for Referral Specialty Diagnoses / Procedures Referred By Contac t Referred To Contact [facility] IMAGING Diagnoses Spinal stenosis of lumbar region with neurogenic claudication Procedures MRI LUMBAR SPINE WO IVCON MRI SPINAL CANAL LUMBAR W/O CONTRAST MATERIAL Denise Reynaga, BATCH UNLOADER.POSITION CLASSIFIER [address] [place] [address] [place] [id number] Referral ID Status Reason Start Date Expiration Date Visits Requested Visits Authorized [id number] Pending Review Auto-Generat ed Referral 05/08/2024 1 1 Specialty Diagnoses / Procedures Referred By Contac t Referred To Contact [facility] Diagnoses Muscle pain Radiculopathy, lumbar region Displacement of lumbar intervertebral disc without myelopathy Intervertebral disc stenosis of neural canal of lumbar region Procedures CONSULT TO PHYSICAL THERAPY PHYSICAL THERAPY EVALUATION HIGH COMPLEX 45 MINS Denise Reynaga, BATCH UNLOADER.POSITION CLASSIFIER [address] [place] [id number] [facility] [address] [address] Referral ID Status Reason Start Date Expiration Date Visits Requested Visits Authorized [id number] Authorized Auto-Generat ed Referral 05/14/2022 05/13/2023 30 30 Specialty Diagnoses / Procedures Referred By Contac t Referred To Contact [facility] Diagnoses Muscle pain DDD (degenerative disc disease), thoracic Radiculopathy, lumbar region Intervertebral disc stenosis of neural canal of lumbar region Procedures CONSULT TO PHYSICAL THERAPY PHYSICAL THERAPY EVALUATION HIGH COMPLEX 45 MINS Denise Reynaga, BATCH UNLOADER.POSITION CLASSIFIER [address] [id number] [facility] [place] [id number] Referral ID Status Reason Start Date Expiration Date Visits Requested Visits Authorized [id number] Pending Review Auto-Generat ed Referral 07/10/2023 07/09/2024 1 1 Specialty Diagnoses / Procedures Referred By Contac t Referred To Contact XR IMAGING Diagnoses Muscle pain DDD (degenerative disc disease), thoracic Procedures XR THORACIC LIMITED 2V AP/LAT RADEX SPINE THORACIC 2 VIEWS Denise Reynaga, BATCH UNLOADER.POSITION CLASSIFIER [address] [place] [address] [place] [id number] Referral ID Status Reason Start Date Expiration Date V isits Requested Visits Authorized [id number] Closed Auto-Generate d Referral 07/10/2023 08/08/2024 1 1 Summary Purpose Additional Source Comments Source Comments (unrecognize d section and content) In the event this informatio n is protected by the Federal Confidentiality of Alcohol and Drug Abuse Patient Records regulations: The Federal rules restrict any use of the information to criminally investigate or prosecute any alcohol or drug abuse patient.[facility] the event this information is protected by the Federal Confidentiality of Alcohol and Drug Abuse Patient Records regulations: The Federal rules restrict any use of the information to criminally investigate or prosecute any alcohol or drug abuse patient.[facility] the event this information is protected by the Federal Confidentiality of Alcohol and Drug Abuse Patient Records regulations: The Federal rules restrict any use of the information to criminally investigate or prosecute any alcohol or drug abuse patient.[facility] the event this information is protected by the Federal Confidentiality of Alcohol and Drug Abuse Patient Records regulations: The Federal rules restrict any use of the information to criminally investigate or prosecute any alcohol or drug abuse patient.[facility] the event this information is protected by the Federal Confidentiality of Alcohol and Drug Abuse Patient Records regulations: The Federal rules restrict any use of the information to criminally investigate or prosecute any alcohol or drug abuse patient.[facility] the event this information is protected by the Federal Confidentiality of Alcohol and Drug Abuse Patient Records regulations: The Federal rules restrict any use of the information to criminally investigate or prosecute any alcohol or drug abuse patient.[facility] the event this information is protected by the Federal Confidentiality of Alcohol and Drug Abuse Patient Records regulations: The Federal rules restrict any use of the information to criminally investigate or prosecute any alcohol or drug abuse patient.[facility] the event this information is protected by the Federal Confidentiality of Alcohol and Drug Abuse Patient Records regulations: The Federal rules restrict any use of the information to criminally investigate or prosecute any alcohol or drug abuse patient.[facility] the event this information is protected by the Federal Confidentiality of Alcohol and Drug Abuse Patient Records regulations: The Federal rules restrict any use of the information to criminally investigate or prosecute any alcohol or drug abuse patient.[facility] the event this information is protected by the Federal Confidentiality of Alcohol and Drug Abuse Patient Records regulations: The Federal rules restrict any use of the information to criminally investigate or prosecute any alcohol or drug abuse patient.[facility]In the event this information is protected by the Federal Confidentiality of Alcohol and Drug Abuse Patient Records regulations: The Federal rules restrict any use of the information to criminally investigate or prosecute any alcohol or drug abuse patient.[facility]In the event this information is protected by the Federal Confidentiality of Alcohol and Drug Abuse Patient Records regulations: The Federal rules restrict any use of the information to criminally investigate or prosecute any alcohol or drug abuse patient.[facility]In the event this information is protected by the Federal Confidentiality of Alcohol and Drug Abuse Patient Records regulations: The Federal rules restrict any use of the information to criminally investigate or prosecute any alcohol or drug abuse patient.[facility] the event this information is protected by the Federal Confidentiality of Alcohol and Drug Abuse Patient Records regulations: The Federal rules restrict any use of the information to criminally investigate or prosecute any alcohol or drug abuse patient.[facility]In the event this information is protected by the Federal Confidentiality of Alcohol and Drug Abuse Patient Records regulations: The Federal rules restrict any use of the information to criminally investigate or prosecute any alcohol or drug abuse patient.[facility]In the event this information is protected by the Federal Confidentiality of Alcohol and Drug Abuse Patient Records regulations: The Federal rules restrict any use of the information to criminally investigate or prosecute any alcohol or drug abuse patient.[facility]In the event this information is protected by the Federal Confidentiality of Alcohol and Drug Abuse Patient Records regulations: The Federal rules restrict any use of the information to criminally investigate or prosecute any alcohol or drug abuse patient.[facility]In the event this information is protected by the Federal Confidentiality of Alcohol and Drug Abuse Patient Records regulations: The Federal rules restrict any use of the information to criminally investigate or prosecute any alcohol or drug abuse patient.[facility] HospitalIn the event this information is protected by the Federal Confidentiality of Alcohol and Drug Abuse Patient Records regulations: The Federal rules restrict any use of the information to criminally investigate or prosecute any alcohol or drug abuse patient.[facility] HospitalIn the event this information is protected by the Federal Confidentiality of Alcohol and Drug Abuse Patient Records regulations: The Federal rules restrict any use of the information to criminally investigate or prosecute any alcohol or drug abuse patient.[facility] HospitalIn the event this information is protected by the Federal Confidentiality of Alcohol and Drug Abuse Patient Records regulations: The Federal rules restrict any use of the information to criminally investigate or prosecute any alcohol or drug abuse patient.[facility]In the event this information is protected by the Federal Confidentiality of Alcohol and Drug Abuse Patient Records regulations: The Federal rules restrict any use of the information to criminally investigate or prosecute any alcohol or drug abuse patient.[facility] Reason for Visit (unrecogniz ed section and content) Reason Comments Physical Therapy Specialty Diagnoses / Procedures Referred By Contac t Referred To Contact [facility] Diagnoses Muscle pain Radiculopathy, lumbar region Displacement of lumbar intervertebral disc without myelopathy Intervertebral disc stenosis of neural canal of lumbar region Procedures CONSULT TO PHYSICAL THERAPY PHYSICAL THERAPY EVALUATION HIGH COMPLEX 45 MINS Denise Reynaga, BATCH UNLOADER.POSITION CLASSIFIER [address] [place] [address] [facility] [address] [place] [address] Referral ID Status Reason Start Date Expiration Date Visits Requested Visits Authorized [id number] Authorized Auto-Generat ed Referral 05/14/2022 05/13/2023 30 30 Reason Comments Injection Followup Back Pain Reason Comments Sugarcane Planter - Other Reason Comments Back Pain Reason Comments Back Pain Follow Up Reason Comments PT Eval Reason Comments Results Lumbar MRI Reason Comments Low Back Pain Reason Comments Results Thoracic XRAY Reason Comments New Knee Pain Care Teams (unrecognized sec tion and content) Voice Instructor Relationship Specialty Start Date End Date Magdalena Fong MD [address] [place] [address] [id number] PCP - General Family Practice 07/27/21 Voice Instructor Relationship Specialty Start Date End Date Magdalena Fong MD [address] [place] [address] [id number] PCP - General Family Practice 07/27/21 Voice Instructor Relationship Specialty Start Date End Date Magdalena Fong MD [address] [place] [address] [id number] PCP - General Family Medicine 07/27/21 Team Status: Active Member Role Status Dates Dr. Lonnie Fong MD Family Provider Active Dr. Lonnie Fong MD Primary Care Provider Activ e Team Status: Active Member Role Status Dates Dr. Lonnie Fong MD Primary Care Provider Activ e Marium Farrell Attending Provider Active Team Status: Active Member Role Status Dates Dr. Lonnie Fong MD Primary Care Provider Activ e Dr. Kj Castro MD Attending Pr ovider, Referring Provider, Other Provider Active Team Status: Inactive Member Role Status Dates Dr. Lonnie Fong MD Primary Care Provider Activ e Dr. Kj Castro MD Attending Provider, Referr ing Provider Active Voice Instructor Relationship Specialty Start Date End Date Magdalena Fong MD [address] [place] [address] [phone] PCP - General Family Medicine 07/27/21 Voice Instructor Relationship Specialty Start Date End Date Magdalena Fong MD [address] [place] [address] PCP - General Family Medicine 07/27/21 Voice Instructor Relationship Specialty Start Date End Date Magdalena Fong MD [address] [place] [address] PCP - General Family Medicine 07/27/21 Voice Instructor Relationship Specialty Start Date End Date Magdalena Fong MD [address] [place] [address] PCP - General Family Medicine 07/27/21 Voice Instructor Relationship Specialty Start Date End Date Magdalena Fong MD [address] [place] [address] PCP - General Family Medicine 07/27/21 Team Status: Inactive Member Role Status Dates Dr. Lonnie Fong MD Primary Care Provider, Atte tning Provider Active Voice Instructor Relationship Specialty Start Date End Date Magdalena Fong MD [address] [place] [address] PCP - General Family Medicine 07/27/21 Voice Instructor Relationship Specialty Start Date End Date Magdalena Fong MD [address] [place] [address] PCP - General Family Medicine 07/27/21 Voice Instructor Relationship Specialty Start Date End Date Magdalena Fong MD [address] [place] [address] PCP - General Family Medicine 07/27/21 Voice Instructor Relationship Specialty Start Date End Date Magdalena Fong MD [address] [place] [address] PCP - General Family Medicine 07/27/21 Voice Instructor Relationship Specialty Start Date End Date Magdalena Fong MD [address] [place] [id number] PCP - General [facility] 07/27/21 Voice Instructor Relationship Specialty Start Date End Date Magdalena Fong MD [address] [place] [id number] PCP - [facility] 07/27/21 (unrecognized sect ion and content) No Status Records FoundNo Status Records FoundNo Status Records Found INFORMATION SOURCE (unrecogn ized section and content) DATE CREATED AUTHOR 01/02/2024 [facility] DATE CREATED AUTHOR AUTHOR'S ORGANIZ ATION 06/25/2024 [facility] DATE CREATED AUTHOR AUTHOR'S ORGANIZ ATION 07/06/[address] [facility] FOR RECORDS PERTAINING TO PATIENTS WHO ARE OR HAVE BEEN ENROLLED IN A CHEMICAL DEPENDENCY/SUBSTANCEABUSE PROGRAM, SOME INFORMATION MAY BE OMITTED. This clinical summary was aggregated from multiple sources. Caution should be exercised in using it in the provision of clinical care. This summary normalizes information from multiple sources, and as a consequence, information in this document may materially change the coding, format and clinical context of patient data. In addition, data may be omitted in some cases. CLINICAL DECISIONS SHOULD BE BASED ON THE PRIMARY CLINICAL RECORDS. [employer] provides no warranty or guarantee of the accuracy or completeness of information in this document.
[2025-05-13 12:19] LABS: AST(SGOT) 24 U/L (<=37); Alanine Aminotransfer ALT/SGPT 23 U/L (<=46); Albumin, Serum 4.3 g/dL (3.5-5.0); Alkaline Phosphatase 77 U/L (40-129); Anion Gap 10 (7-18); BUN 5 mg/dL (4-19); BUN/Creat Ratio 8.3 RATIO (10-20); Calcium,Total 9.5 mg/dL (7.6-11.0); Carbon Dioxide 27.8 mmol/L (20.0-29.0); Chloride 101 mmol/L (96-106); Cholesterol 217 mg/dL (<=200); Globulin 2.8 g/dL (2.2-4.2); Glucose 89 mg/dL (70-99); Low Density Lipoprotein Calc. 147 mg/dL; PSA,Total - Annual Screen 2.86 ng/mL (0.02-4.00); Potassium 4.0 mmol/L (3.5-5.1); Triglycerides 180 mg/dL; Very Low Density Lipoprotein 36 mg/dL (5-40); cholesterol:hdl ratio screen 5.91
== END | disposition home or self-care (01) ==
LOC: MFPLAB 09:52
PROVIDERS: PCP Family Medicine; Visit Provider Family Medicine
DX: Z13.220 Encounter for screening for lipoid disorders (principal); Z12.5 Encounter for screening for malignant neoplasm of prostate; Z13.1 Encounter for screening for diabetes mellitus
CPT/HCPCS: 36415; 80053; 80061; 84153; G0103